=== PATIENT | female | born 1955 | race Caucasian/White ===

== ENCOUNTER 2019-11-29 15:58 | Emergency (ER) | payer OTHER ==
[~2019-11-29] VITALS: Ht 162.6 cm; Wt 50.6 kg
--- OUTSIDE RECORDS SUMMARY | 2019-11-29 16:05 | XMS REPORT | Continuity of Care Document ---
Author Organization Unknown Address Unknown Phone Unavailable Allergies There is no data. Medications There is no data. Problems There is no data. Procedures There is no data. Results Test Result Range A1C - 08/26/18 10:00 HEMOGLOBIN A1c 6.9 % of total Hgb <5.7 LIPID PANEL - 11/14/18 08:45 CHOLESTEROL, TOTAL 123 mg/dL <200 HDL CHOLESTEROL 61 mg/dL >50 TRIGLYCERIDES 87 mg/dL <150 LDL-CHOLESTEROL 45 mg/dL (calc) NRG CHOL/HDLC RATIO 2.0 (calc) <5.0 NON HDL CHOLESTEROL 62 mg/dL (calc) <130 CMP - 11/14/18 08:45 GLUCOSE 149 mg/dL 65-99 UREA NITROGEN (BUN) 10 mg/dL 7-25 CREATININE 0.47 mg/dL 0.50-0.99 eGFR NON-AFR. [place] 104 mL/min/1.73m2 > OR = 60 eGFR 121 mL/min/1.73m2 > OR = 60 BUN/CREATININE RATIO 21 (calc) 6-22 SODIUM 140 mmol/L 135-146 POTASSIUM 4.0 mmol/L 3.5-5.3 CHLORIDE 102 mmol/L 98-110 CARBON DIOXIDE 29 mmol/L 20-32 CALCIUM 9.4 mg/dL 8.6-10.4 PROTEIN, TOTAL 6.4 g/dL 6.1-8.1 ALBUMIN 4.2 g/dL 3.6-5.1 GLOBULIN 2.2 g/dL (calc) 1.9-3.7 ALBUMIN/GLOBULIN RATIO 1.9 (calc) 1.0-2. 5 BILIRUBIN, TOTAL 0.4 mg/dL 0.2-1.2 ALKALINE PHOSPHATASE 70 U/L 33-130 AST 10 U/L 10-35 ALT 7 U/L 6-29 CBC - 11/14/18 08:45 WHITE BLOOD CELL COUNT 5.2 Thousand/uL 3 .8-10.8 RED BLOOD CELL COUNT 4.52 Million/uL 3.8 0-5.10 HEMOGLOBIN 10.6 g/dL 11.7-15.5 HEMATOCRIT 34.3 % 35.0-45.0 MCV 75.9 fL 80.0-100.0 MCH 23.5 pg 27.0-33.0 MCHC 30.9 g/dL 32.0-36.0 RDW 14.8 % 11.0-15.0 PLATELET COUNT 196 Thousand/uL 140-400 MPV 11.5 fL 7.5-12.5 ABSOLUTE NEUTROPHILS 3541 cells/uL 1500- 7800 ABSOLUTE LYMPHOCYTES 1165 cells/uL 850-3 900 ABSOLUTE MONOCYTES 322 cells/uL 200-950 ABSOLUTE EOSINOPHILS 130 cells/uL 15-500 ABSOLUTE BASOPHILS 42 cells/uL 0-200 NEUTROPHILS 68.1 % NRG LYMPHOCYTES 22.4 % NRG MONOCYTES 6.2 % NRG EOSINOPHILS 2.5 % NRG BASOPHILS 0.8 % NRG A1C - 11/14/18 08:45 HEMOGLOBIN A1c 7.0 % of total Hgb <5.7 LIPID PANEL - 03/09/19 08:29 CHOLESTEROL, TOTAL 166 mg/dL <200 HDL CHOLESTEROL 65 mg/dL >50 TRIGLYCERIDES 75 mg/dL <150 LDL-CHOLESTEROL 85 mg/dL (calc) NRG CHOL/HDLC RATIO 2.6 (calc) <5.0 NON HDL CHOLESTEROL 101 mg/dL (calc) <13 0 CMP - 03/09/19 08:29 GLUCOSE 160 mg/dL 65-99 UREA NITROGEN (BUN) 10 mg/dL 7-25 CREATININE 0.58 mg/dL 0.50-0.99 eGFR NON-AFR. [place] 97 mL/min/1.73m2 > OR = 60 eGFR 112 mL/min/1.73m2 > OR = 60 BUN/CREATININE RATIO NOT APPLICABLE (calc) 6-22 SODIUM 140 mmol/L 135-146 POTASSIUM 3.9 mmol/L 3.5-5.3 CHLORIDE 104 mmol/L 98-110 CARBON DIOXIDE 30 mmol/L 20-32 CALCIUM 9.1 mg/dL 8.6-10.4 PROTEIN, TOTAL 6.0 g/dL 6.1-8.1 ALBUMIN 4.0 g/dL 3.6-5.1 GLOBULIN 2.0 g/dL (calc) 1.9-3.7 ALBUMIN/GLOBULIN RATIO 2.0 (calc) 1.0-2. 5 BILIRUBIN, TOTAL 0.3 mg/dL 0.2-1.2 ALKALINE PHOSPHATASE 65 U/L 33-130 AST 10 U/L 10-35 ALT 5 U/L 6-29 CBC - 03/09/19 08:29 WHITE BLOOD CELL COUNT 5.0 Thousand/uL 3 .8-10.8 RED BLOOD CELL COUNT 4.89 Million/uL 3.8 0-5.10 HEMOGLOBIN 12.1 g/dL 11.7-15.5 HEMATOCRIT 38.4 % 35.0-45.0 MCV 78.5 fL 80.0-100.0 MCH 24.7 pg 27.0-33.0 MCHC 31.5 g/dL 32.0-36.0 RDW 15.8 % 11.0-15.0 PLATELET COUNT 193 Thousand/uL 140-400 MPV 11.1 fL 7.5-12.5 ABSOLUTE NEUTROPHILS 3215 cells/uL 1500- 7800 ABSOLUTE LYMPHOCYTES 1130 cells/uL 850-3 900 ABSOLUTE MONOCYTES 375 cells/uL 200-950 ABSOLUTE EOSINOPHILS 240 cells/uL 15-500 ABSOLUTE BASOPHILS 40 cells/uL 0-200 NEUTROPHILS 64.3 % NRG LYMPHOCYTES 22.6 % NRG MONOCYTES 7.5 % NRG EOSINOPHILS 4.8 % NRG BASOPHILS 0.8 % NRG A1C - 03/09/19 08:29 HEMOGLOBIN A1c 7.1 % of total Hgb <5.7 A1C - 06/05/19 09:47 HEMOGLOBIN A1c 7.0 % of total Hgb <5.7 MICROALBUMIN/CREATININE RATIO, URINE - 0 10/06/19 08:25 CREATININE, RANDOM URINE 49 mg/dL 20-27 5 MICROALBUMIN 0.6 mg/dL See Note: MICROALBUMIN/CREATININE RATIO, RANDOM URINE 12 mcg /mg creat <30 Encounters ACCT No. Visit Date/Time Discharge Status Pt. Type Provider Facility Loc./Unit Complaint [id number] 10/22/2019 08:45:00 10/22/2019 23:59: 59 [facility] [id number] 10/06/2019 08:15:00 Document Registration [id number] 06/05/2019 08:45:00 Document Registration [id number] 03/09/2019 08:45:00 Document Registration [id number] 11/14/2018 08:30:00 Document Registration [id number] 08/26/2018 11:00:00 Document Registration
[2019-11-29] MEDS ORDERED: KETOROLAC 30 MG/ML VIAL IVP STA (16:11)
[2019-11-29] MEDS ORDERED: ONDANSETRON 4 MG/2 ML (SDV) Z0FRAN IVP STA (16:11)
[2019-11-29] MEDS ORDERED: PANTOPRAZOLE 40 MG (PROTONIX) VIAL IV STA (16:11)
[2019-11-29] MEDS ORDERED: NS IV 1000 ML 1,000 ML IV STA (16:11)
--- NOTE | 2019-11-29 16:19 | ED GI ---
General Chief Complaint: Abdominal/GI Problems Stated Complaint: STOMACH PAIN;VOMITING Nursing Triage Note: Patient reports intermittent abdominal pain for 1-2 weeks, states she saw Dr. Desir and started taking Gas-Ex, which helped for a few days. Patient states today her pain worsened and she began vomiting; states she vomited 6-7 times at home, no oral intake today. Sepsis Screen: No Definite Risk Source of Information: Patient History of Present Illness Date Seen by Provider: November 29, 2019 Time Seen by Provider: 16:01 Initial Comments 64-year-old female presenting with complaints of increased abdominal pain with nausea and vomiting. She states that she has seen Dr. Desir a few weeks ago for the same problem and was told to take medication [id number]. This was not helping and this morning she started throwing up. She states that she is not taking anything by mouth today because of the abdominal pain and vomiting. She denies any allergies to medicines. She states that she has history diabetes as well as high blood pressure and high cholesterol. She has not taken anything today to try and help with pain. She feels like she is bloated with extra gas and it is worse whenever she tries to eat or drink. Gas-X had helped some initially but is not helping now. Allergies and Home Medications Allergies Coded Allergies: No Known Drug Allergies (Unverified , 11/29/19) Home Medications Metoclopramide HCl 5 Mg Tablet, 5 MG PO Q6H PRN for NAUSEA/VOMITING Prescribed by: NELSON BERMEO on 11/29/19 1816 Patient Home Medication List Home Medication List Reviewed: Yes Review of Systems Review of Systems Constitutional: No chills, No dizziness, No fever EENTM: No Symptoms Reported Respiratory: No Symptoms Reported Cardiovascular: No Symptoms Reported Gastrointestinal: See HPI Genitourinary: No Symptoms Reported Musculoskeletal: no symptoms reported Skin: no symptoms reported Psychiatric/Neurological: Anxiety Past Ztbipqi-Snworo-Elhdhq Hx Past Med/Social Hx: Reviewed Nursing Past Med/Soc Hx Patient Social History Recent Foreign Travel: No Contact w/Someone Who Travel: No Recent Infectious Disease Expo: No Past Medical History Surgeries: Yes Hysterectomy (vaginal hysterectomy), Tubal Ligation Respiratory: No Cardiac: Yes High Cholesterol, Hypertension Neurological: No Reproductive Disorders: No Genitourinary: No Gastrointestinal: No Musculoskeletal: No Endocrine: Yes Diabetes, Non-Insulin dep HEENT: No Cancer: No Psychosocial: No Integumentary: No Physical Exam Vital Signs Vital Signs - First Documented 11/29/19 16:08 Temp 36.8 Pulse 119 Resp 18 B/P (MAP) 158/87 (110) Pulse Ox 97 O2 Delivery Room Air Capillary Refill : Less Than 3 Seconds Height/Weight/BMI Height: '" Weight: lbs. oz. kg; 19.00 BMI Method: General Appearance: WD/WN, mild distress HEENT: PERRL/EOMI; No pharynx normal (slightly dry mucous membranes) Neck: non-tender, full range of motion, supple, normal inspection Respiratory: chest non-tender, lungs clear, normal breath sounds, no respiratory distress, no accessory muscle use Cardiovascular: normal peripheral pulses, no murmur, tachycardia Gastrointestinal: soft, no pulsatile mass, abnormal bowel sounds (hypoactive); No guarding, No rebound; tenderness (diffuse) Rectal: deferred Extremities: normal range of motion, non-tender, normal inspection, normal capillary refill 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, no motor/sensory deficits, alert, oriented x 3, other (anxious) Skin: normal color, warm/dry Progress/Results/Core Measures Results/Orders Lab Results Laboratory Tests Test 11/29/19 16:11 11/29/19 17:25 Range/Units White Blood Count 10.9 4.3-11.0 10^3/uL Red Blood Count 5.37 4.35-5.85 10^6/uL Hemoglobin 13.6 11.5-16.0 G/DL Hematocrit 42 35-52 % Mean Corpuscular Volume 78 L 80-99 FL Mean Corpuscular Hemoglobin 25 25-34 PG Mean Corpuscular Hemoglobin Concent 33 32-36 G/DL Red Cell Distribution Width 15.2 H 10.0-14.5 % Platelet Count 293 130-400 10^3/uL Mean Platelet Volume 11.2 H 7.4-10.4 FL Neutrophils (%) (Auto) 84 H 42-75 % Lymphocytes (%) (Auto) 10 L 12-44 % Monocytes (%) (Auto) 6 0-12 % Eosinophils (%) (Auto) 0 0-10 % Basophils (%) (Auto) 0 0-10 % Neutrophils # (Auto) 9.2 H 1.8-7.8 X 10^3 Lymphocytes # (Auto) 1.0 1.0-4.0 X 10^3 Monocytes # (Auto) 0.6 0.0-1.0 X 10^3 Eosinophils # (Auto) 0.0 0.0-0.3 10^3/uL Basophils # (Auto) 0.0 0.0-0.1 10^3/uL Sodium Level 141 135-145 MMOL/L Potassium Level 3.9 3.6-5.0 MMOL/L Chloride Level 99 98-107 MMOL/L Carbon Dioxide Level 26 21-32 MMOL/L Anion Gap 16 H 5-14 MMOL/L Blood Urea Nitrogen 11 7-18 MG/DL Creatinine 0.39 L 0.60-1.30 MG/DL Estimat Glomerular Filtration Rate > 60 BUN/Creatinine Ratio 28 Glucose Level 164 H 70-105 MG/DL Calcium Level 9.4 8.5-10.1 MG/DL Corrected Calcium 9.2 8.5-10.1 MG/DL Total Bilirubin 0.6 0.1-1.0 MG/DL Aspartate Amino Transf (AST/SGOT) 19 5-34 U/L Alanine Aminotransferase (ALT/SGPT) 7 0-55 U/L Alkaline Phosphatase 94 40-136 U/L Total Protein 6.8 6.4-8.2 GM/DL Albumin 4.3 3.2-4.5 GM/DL Lipase 9 8-78 U/L Urine Color YELLOW Urine Clarity CLEAR Urine pH 6.5 5-9 Urine Specific [place] <1.005 1.016-1.022 Urine Protein NEGATIVE NEGATIVE Urine Glucose (UA) NEGATIVE NEGATIVE Urine Ketones 1+ H NEGATIVE Urine Nitrite NEGATIVE NEGATIVE Urine Bilirubin NEGATIVE NEGATIVE Urine Urobilinogen 1.0 < = 1.0 MG/DL Urine Leukocyte Esterase NEGATIVE NEGATIVE Urine RBC (Auto) NEGATIVE NEGATIVE Urine RBC NONE /HPF Urine WBC NONE /HPF Urine Squamous Epithelial Cells 0-2 /HPF Urine Crystals NONE /LPF Urine Bacteria NONE /HPF Urine Casts NONE /LPF Urine Mucus NEGATIVE /LPF Urine Culture Indicated NO My Orders Orders - NELSON BERMEO MD Comprehensive Metabolic Panel (11/29/19 16:06) Lipase (11/29/19 16:06) Ua Culture If Indicated (11/29/19 16:06) Ed Iv/Invasive Line Start (11/29/19 16:06) Cbc With Automated Diff (11/29/19 16:06) Ns Iv 1000 Ml (Sodium Chloride 0.9%) (11/29/19 16:11) Ondansetron Injection (Zofran Injectio (11/29/19 16:11) Pantoprazole Injection (Protonix Injecti (11/29/19 16:11) Ketorolac Injection (Toradol Injection) (11/29/19 16:11) Ct Abdomen/Pelvis W (11/29/19 16:13) Iohexol Injection (Omnipaque 350 Mg/Ml 1 (11/29/19 16:45) Received Contrast (Hold Metformin- Contr (11/29/19 16:45) Sodium Chloride Flush (Catheter Flush Sy (11/29/19 16:45) Ns (Ivpb) (Sodium Chloride 0.9% Ivpb Bag (11/29/19 16:45) Medications Given in ED Current Medications Medications Dose Ordered Sig/Cynthia Route Start Time Stop Time Status Last Admin Dose Admin Iohexol 100 ml ONCE ONCE IV 11/29/19 16:45 11/29/19 16:46 DC 11/29/19 16:59 100 ML Sodium Chloride 10 ml NEEDED PRN IV 11/29/19 16:45 11/29/19 17:00 10 ML Sodium Chloride 100 ml ONCE ONCE IV 11/29/19 16:45 11/29/19 16:46 DC 11/29/19 17:00 100 ML Vital Signs/I&O 11/29/19 16:08 Temp 36.8 Pulse 119 Resp 18 B/P (MAP) 158/87 (110) Pulse Ox 97 O2 Delivery Room Air Blood Pressure Mean: 110 Progress Progress Note #1: Progress Note Obtain basic labs and give IV fluids for hydration, Toradol for pain, Zofran for nausea. Will try dose of Protonix in case her some gastritis component. Ordered a CT scan of the abdomen and pelvis provided her creatinine is stable in the GFR is sinus she can get contrast will perform the scan with contrast to evaluate for colitis versus mass versus obstruction versus appendicitis versus cholecystitis. Progress Note #2: Time: 16:41 Progress Note CBC shows normal WBC 10.9 but she does have a left shift with elevated Neutrophils. MCV slightly low at 78 so may be iron deficient. Chemistry shows elevated glucose to go with her DM but no acute significant abnormality otherwise. Awaiting UA and CT scan imaging of abdomen/pelvis. Progress Note #3: Time: 17:[address] scan shows dilated small bowel and colon with fluid filled bowel up to the sigmoid. No discrete mass seen. Radiology recommends colonoscopy to evaluate this further. Pt finally able to provide a urine specimen. She reports feeling better and wanting to go home. Will see how she tolerates po here in ED and wait on UA results. If pain/vomiting worsen or return with taking po will need to check with [facility] or Surgery about admit for IVF for hydration and bowel rest and consider colonoscopy or further evaluation of her colon to look for a mass or area of obstruction. Progress Note #4: Time: 17:56 Progress Note Patient is tolerating oral intake and states that her abdominal pain and nausea with vomiting has not returned. Her urinalysis did not show infection but she did have some ketones consistent with her not eating or drinking well. She still wants to try working this up as an outpatient and I informed her she will need a colonoscopy to evaluate her colon and apparent obstruction. In the meantime, follow a liquid and soft diet. Counseled on follow-up and return precautions. Advised if she had worsening symptoms and had contact that we would try to admit her down to [place] and she could also just go directly to the hospital in [place]. Diagnostic Imaging Diagonstic Imaging: CT Plain Films/CT/US/NM/MRI: abdomen, pelvis Comments NAME: RICHELLE XIONG [facility] REC#: [id number] PT STATUS: REG ER : 1955 PHYSICIAN: NELSON BERMEO MD ADMIT DATE: 11/29/19/ER FS Draft Date of Exam:11/29/19 CT ABDOMEN/PELVIS W PROCEDURE: CT abdomen and pelvis with contrast. TECHNIQUE: Multiple contiguous axial images were obtained through the abdomen and pelvis after administration of intravenous contrast. Auto Exposure Controls were utilized during the CT exam to meet ALARA standards for radiation dose reduction. INDICATION: Abdominal pain x 2 weeks with nausea and vomiting. FINDINGS: Lung bases are clear. The liver appears normal. Gallbladder is present. Pancreas is unremarkable. Spleen is upper limits of normal. Adrenals appear normal. Kidneys appear normal. The small bowel is dilated. The colon is filled with fluid up to the junction of the descending and sigmoid colon. There is no discrete mass seen. Urinary bladder is decompressed. The uterus is surgically absent. IMPRESSION: Dilated fluid-filled small bowel and colon up to the sigmoid colon. There is no mass or wall thickening evident. There is no evidence of diverticulitis. Further evaluation with colonoscopy is recommended. Dictated on workstation # [id number] Dict: 11/29/19 1711 Trans: 11/29/19 171 [facility] [id number] Interpreted by: LEAH LUNA MD Electronically signed by: Departure Impression Primary Impression: Dilatation of colon Additional Impressions: Diffuse abdominal pain Bilious vomiting with nausea Disposition: HOME, SELF-CARE Condition: Stable Departure-Patient Inst. Decision time for Depature: 18:11 Referrals: FRANKLYN DESIR MD Patient Instructions: Full Liquid Diet, Nausea and Vomiting, Adult (DC) Add. Discharge Instructions: Follow up with Dr. Desir and call the clinic in the morning to let them know that you need to have a colonoscopy based on your testing and imaging done today. In the meantime follow a liquid or soft diet to make it easier on your gut. If you have worsening pain or uncontrolled vomiting again then return or seek medical care at [facility] for admit All discharge instructions reviewed with patient and/or family. Voiced understanding. Scripts Metoclopramide HCl (Metoclopramide HCl) 5 Mg Tablet 5 MG PO Q6H PRN for NAUSEA/VOMITING for 3 Days, #12 TAB 0 Refills Prov: NELSON BERMEO MD 11/29/19 NELSON BERMEO MD November 29, 2019 16:19
[2019-11-29 16:22] LABS: BASOPHILS % (AUTO) 0 % (0-10); EOSINOPHILS % (AUTO) 0 % (0-10); HEMATOCRIT 42 % (35-52); HEMOGLOBIN 13.6 G/DL (11.5-16.0); LYMPHOCYTES % (AUTO) 10 % (12-44); MEAN CORPUSCULAR HEMOGLOBIN 25 PG (25-34); MEAN CORPUSCULAR HGB CONC 33 G/DL (32-36); MEAN CORPUSCULAR VOLUME 78 FL (80-99); MEAN PLATELET VOLUME 11.2 FL (7.4-10.4); MONOCYTES # (AUTO) 0.6 X 10^3 (0.0-1.0); MONOCYTES % (AUTO) 6 % (0-12); NEUTROPHILS # (AUTO) 9.2 X 10^3 (1.8-7.8); NEUTROPHILS % (AUTO) 84 % (42-75); PLATELET COUNT 293 10^3/uL (130-400); RED CELL DISTRIBUTION WIDTH 15.2 % (10.0-14.5); WHITE BLOOD COUNT 10.9 10^3/uL (4.3-11.0)
[2019-11-29 16:34] LABS: ALANINE AMINOTRANSFERASE 7 U/L (0-55); ALBUMIN 4.3 GM/DL (3.2-4.5); ALKALINE PHOSPHATASE 94 U/L (40-136); BILIRUBIN,TOTAL 0.6 MG/DL (0.1-1.0); BUN/CREATININE RATIO 28; CALCIUM 9.4 MG/DL (8.5-10.1); CARBON DIOXIDE 26 MMOL/L (21-32); CHLORIDE 99 MMOL/L (98-107); CREATININE SERUM 0.39 MG/DL (0.60-1.30); GFR ESTIMATED > 60; GLUCOSE 164 MG/DL (70-105); LIPASE 9 U/L (8-78); POTASSIUM 3.9 MMOL/L (3.6-5.0); SODIUM 141 MMOL/L (135-145); TOTAL PROTEIN 6.8 GM/DL (6.4-8.2)
[2019-11-29] MEDS ORDERED: HOLD METFORMIN - RECEIVED CONTRAST 20 ML VIAL IV SCH (16:45)
[2019-11-29] MEDS ORDERED: CATHETER FLUSH 10 ML SYR IV PRN (16:45)
[2019-11-29] MEDS ORDERED: NS 100 ML (IVPB) BAG IV ONE (16:45)
[2019-11-29] MEDS ORDERED: IOHEXOL 350 MG/ML 100 ML (OMNIPAQUE 350) VIAL IV ONE (16:45)
--- NOTE | 2019-11-29 17:19 | Diagnostic Imaging Report ---
PROCEDURE: CT abdomen and pelvis with contrast. TECHNIQUE: Multiple contiguous axial images were obtained through the abdomen and pelvis after administration of intravenous contrast. Auto Exposure Controls were utilized during the CT exam to meet ALARA standards for radiation dose reduction. INDICATION: Abdominal pain x 2 weeks with nausea and vomiting. FINDINGS: Lung bases are clear. The liver appears normal. Gallbladder is present. Pancreas is unremarkable. Spleen is upper limits of normal. Adrenals appear normal. Kidneys appear normal. The small bowel is dilated. The colon is filled with fluid up to the junction of the descending and sigmoid colon. There is no discrete mass seen. Urinary bladder is decompressed. The uterus is surgically absent. IMPRESSION: Dilated fluid-filled small bowel and colon up to the sigmoid colon. There is no mass or wall thickening evident. There is no evidence of diverticulitis. Further evaluation with colonoscopy is recommended. Dictated by: Dictated on workstation # [id number]
[2019-11-29 17:44] LABS: CLARITY,URINE CLEAR; COLOR,URINE YELLOW; PH,URINE 6.5 (5-9); PROTEIN,URINE NEGATIVE (NEGATIVE)
[2019-11-29 17:45] LABS: BILIRUBIN,URINE NEGATIVE (NEGATIVE); GLUCOSE, URINE (UA) NEGATIVE (NEGATIVE); KETONES,URINE 1+ (NEGATIVE); LEUKOCYTE ESTERASE ,URINE NEGATIVE (NEGATIVE); NITRITE,URINE NEGATIVE (NEGATIVE); SQUAMOUS EPITHELIAL CELL,UR 0-2 /HPF
[2019-11-29] MEDS ORDERED: METO5TAB2 PO (18:16)
[2019-11-29 18:23] VITALS: BP 143/68
== END 2019-11-29 18:23 | disposition home or self-care (01) ==
LOC: ER FS 16:00
DX: K59.39 Other megacolon (principal); R11.14 Bilious vomiting; R11.0 Nausea; E11.9 Type 2 diabetes mellitus without complications
CPT/HCPCS: 36415; 74177; 80053; 81000; 83690; 85025; 96361; 96374; 96375

== ENCOUNTER → 2019-12-21 | Outpatient (CLI) | payer OTHER ==
[~2019-12-21] VITALS: Ht 167 cm; Wt 51.3 kg
[~2019-12-21] MED LIST: LISI2.5T PO; METF-399 PO; METO5TAB2 PO
== END | disposition home or self-care (01) ==
LOC: PREOP 05:52
PROVIDERS: ATTEND Surgery
DX: Z01.818 Encounter for other preprocedural examination (principal)

== ENCOUNTER 2019-12-28 09:13 | Day surgery (SDC) | payer OTHER ==
[~2019-12-28] VITALS: Ht 152 cm; Wt 51.3 kg
[2019-12-28] MEDS ORDERED: LACTATED RINGERS 1,000 ML IV ONE (09:18)
[2019-12-28] MEDS ORDERED: PROPOFOL INJECTION 0 ML IV ONE (09:33)
[2019-12-28] MEDS ORDERED: LACTATED RINGERS 1,000 ML IV STA (09:45)
--- NOTE | 2019-12-28 10:09 | Progress Note-Pre Operative ---
Pre-Operative Progress Note H&P Reviewed The H&P was reviewed, patient examined and no changes noted. Time Seen by Provider: 10:07 Date H&P Reviewed: Dec 28, 2019 Time H&P Reviewed: 10:08 Pre-Operative Diagnosis: Screening Colonoscopy ALEJANDRO VELAZQUEZ DO Dec 28, 2019 10:08
--- OUTSIDE RECORDS SUMMARY | 2019-12-28 10:19 | XMS REPORT | Continuity of Care Document ---
Author Organization Unknown Address Unknown Phone Unavailable Allergies Active Description Code Type Severity Reaction Onset Reported/Identified Relationship to Patient Clinical Status Yes No Known Drug Allergies [id number] Drug Allergy Unknown N/A 12/21/2019 Medications There is no data. Problems Date Dx Coded Attending Type Code Diagnosis Diagnosed By 11/29/2019 ELVIE ROCKWELL, NELSON Gao Ot E11.9 TYPE 2 DIABETES MELLITUS WITHOUT COMPLIC 11/29/2019 ELVIE ROCKWELL, NELSON Gao Ot K59.3 9 OTHER [place]GAC[place] 11/29/2019 ELVIE ROCKWELL, NELSON E Ot R10.8 4 GENERALIZED ABDOMINAL PAIN 11/29/2019 NELSON BERMEO MD E Ot R11.0 NAUSEA 11/29/2019 ELVIE ROCKWELL, NELSON E Ot R11.1 4 BILIOUS VOMITING 12/02/2019 ELVIE ROCKWELL, NELSON E Ot E11.9 TYPE 2 DIABETES MELLITUS WITHOUT COMPLIC 12/02/2019 ELVIE ROCKWELL, NELSON E Ot K59.3 9 OTHER [place] 12/02/2019 ELVIE ROCKWELL, NELSON E Ot R10.8 4 GENERALIZED ABDOMINAL PAIN 12/02/2019 NELSON BERMEO MD E Ot R11.0 NAUSEA 12/02/2019 NELSON BERMEO MD Ot R11.1 4 BILIOUS VOMITING 12/22/2019 ALEJANDRO VELAZQUEZ DO Ot Z01.8 18 ENCOUNTER FOR OTHER PREPROCEDURAL EXAMIN 12/27/2019 ALEJANDRO VELAZQUEZ DO Ot Z01.8 18 ENCOUNTER FOR OTHER PREPROCEDURAL EXAMIN Procedures There is no data. Results Test [...] 7-25 CREATININE 0.47 mg/dL 0.50-0.99 eGFR NON-AFR. [place] 104 mL/min/1.73m2 > OR = 60 eGFR [...] 7-25 CREATININE 0.58 mg/dL 0.50-0.99 eGFR NON-AFR. [place] 97 mL/min/1.73m2 > OR = 60 eGFR [...] RANDOM URINE 12 mcg /mg creat <30 Complete blood count (CBC) with automate d white blood cell (WBC) differential - 11/29/19 16:11 Blood leukocytes automated count (number/volume) 10.9 10*3/uL 4.3-11.0 Blood erythrocytes automated count (number/volume) 5.37 10*6/uL 4.35-5.85 Venous blood hemoglobin measurement (mass/volume) 13.6 g/dL 11.5-16.0 Blood hematocrit (volume fraction) 42 % 35-52 Automated erythrocyte mean corpuscular volume 78 [ foz_us] 80-99 Automated erythrocyte mean corpuscular h emoglobin (mass per erythrocyte) 25 pg 25-34 Automated erythrocyte mean corpuscular h emoglobin concentration measurement (mass/volume) 33 g/dL 32-36 Automated erythrocyte distribution width ratio 15. 2 % 10.0- 14.5 Automated blood platelet count (count/volume) 293 10*3/uL 130-400 Automated blood platelet mean volume measurement 11.2 [foz_us] 7.4-10.4 Automated blood neutrophils/100 leukocytes 84 % 42-75 Automated blood lymphocytes/100 leukocytes 10 % 12-44 Blood monocytes/100 leukocytes 6 % 0-12 Automated blood eosinophils/100 leukocytes 0 % 0-10 Automated blood basophils/100 leukocytes 0 % 0-10 Blood neutrophils automated count (number/volume) 9.2 10*3 1.8-7.8 Blood lymphocytes automated count (number/volume) 1.0 10*3 1.0-4.0 Blood monocytes automated count (number/volume) 0. 6 10*3 0.0-1.0 Automated eosinophil count 0.0 10*3/uL 0 .0-0.3 Automated blood basophil count (count/volume) 0.0 10*3/uL 0.0-0.1 Comprehensive metabolic panel - 11/29/19 16:11 Serum or plasma sodium measurement (moles/volume) 141 mmol/L 135-145 Serum or plasma potassium measurement (moles/volume) 3.9 mmol/L 3.6-5.0 Serum or plasma chloride measurement (moles/volume) 99 mmol/L 98-107 Carbon dioxide 26 mmol/L 21-32 Serum or plasma anion gap determination (moles/volume) 16 mmol/L 5-14 Serum or plasma urea nitrogen measurement (mass/volume ) 11 mg/dL 7-18 Serum or plasma creatinine measurement (mass/volume) 0.39 mg/dL 0.60-1.30 Serum or plasma urea nitrogen/creatinine mass ratio 28 NRG Serum or plasma creatinine measurement w ith calculation of estimated glomerular filtration rate > NRG Serum or plasma glucose measurement (mass/volume) 164 mg/dL 70-105 Serum or plasma calcium measurement (mass/volume) 9.4 mg/dL 8.5-10.1 Serum or plasma total bilirubin measurement (mass/volu me) 0.6 mg/dL 0.1-1.0 Serum or plasma alkaline phosphatase venkat surement (enzymatic activity/volume) 94 U/L 40-136 Serum or plasma aspartate aminotransfera se measurement (enzymatic activity/volume) 19 U/L 5-34 Serum or plasma alanine aminotransferase measurement (enzymatic activity/volume) 7 U/L 0-55 Serum or plasma protein measurement (mass/volume) 6.8 g/dL 6.4-8.2 Serum or plasma albumin measurement (mass/volume) 4.3 g/dL 3.2-4.5 CALCIUM CORRECTED 9.2 mg/dL 8.5-10.1 Lipase - 11/29/19 16:11 Lipase 9 U/L 8-78 Complete urinalysis with reflex to cultu re - 11/29/19 17:25 Urine color determination YELLOW NRG Urine clarity determination CLEAR NR G Urine pH measurement by test strip 6.5 5-9 Specific gravity of urine by test strip < 1.016-1.022 Urine protein assay by test strip, semi-quantitative NEGATIVE NEGATIVE Urine glucose detection by automated test strip NE GATIVE NEGATIVE Erythrocytes detection in urine sediment by light micr oscopy NEGATIVE NEGATIVE Urine ketones detection by automated test strip 1+ NEGATIVE Urine nitrite detection by test strip NEGATIVE NEGATIVE Urine total bilirubin detection by test strip NEGA TIVE NEGATIVE Urine urobilinogen measurement by automated test strip (mass/volume) 1.0 mg/dL < = 1.0 Urine leukocyte esterase detection by dipstick NEG ATIVE NEGATIVE Automated urine sediment erythrocyte cou nt by microscopy (number/high power field) NONE NRG Automated urine sediment leukocyte count by microscopy (number/high power field) NONE NRG Bacteria detection in urine sediment by light microsco py NONE NRG Squamous epithelial cells detection in u rine sediment by light microscopy 0-2 NRG Crystals detection in urine sediment by light microsco py NONE NRG Casts detection in urine sediment by light microscopy NONE NRG Mucus detection in urine sediment by light microscopy NEGATIVE NRG Complete urinalysis with reflex to culture NO NRG Encounters ACCT No. Visit Date/Time Discharge Status Pt. Type Provider Facility Loc./Unit Complaint [id number] 12/22/2019 11:50:00 12/22/2019 23:59: 59 [facility] Outpatient [facility] [id number] 10/06/2019 08:15:00 Document Registration [id number] 06/05/2019 08:45:00 Document Registration [id number] 03/09/2019 08:45:00 Document Registration [id number] 11/14/2018 08:30:00 Document Registration [id number] 08/26/2018 11:00:00 Document Registration [id number] 12/21/2019 05:52:00 16:00:00 DIS Outpatient ALEJANDRO VELAZQUEZ DO [facility] PREOP COLONOSCOPY [id number] 11/29/2019 16:00:00 18:23:00 DIS Emergency ELVIE ROCKWELL, NELSON Gao [facility] ER FS STOMACH PAIN;VOMITING [id number] 12/28/2019 11:50:00 P EN Preadmit ALEJANDRO VELAZQUEZ DO [facility] ENDO SCREENING
[2019-12-28 10:30] VITALS: BP 169/88
[2019-12-28] MEDS ORDERED: PROPOFOL INJECTION 50 ML IV ONE (10:41)
[2019-12-28] MEDS ORDERED: FAMOTIDINE 20MG/2ML IV (PEPCID) ONE (10:44)
[2019-12-28] MEDS ORDERED: FAMOTIDINE 20MG/2ML IV (PEPCID) IVP ONE (10:45)
[2019-12-28 10:55] VITALS: BP 114/73
--- NOTE | 2019-12-28 10:57 | Progress Note-Post Operative ---
Post-Operative Progess Note Surgeon (s)/Necktie Centralizing Machine Operator (s) Surgeon ALEJANDRO VELAZQUEZ DO Necktie Centralizing Machine Operator: none Pre-Operative Diagnosis Screening Colonoscopy Post-Operative Diagnosis Colon Mass Colon polyps anal stricture Procedure & Operative Findings Date of Procedure 12/28/19 Procedure Performed/Findings colon with snare colon with tattoo Anesthesia Type IV sedation by ORCHESTRA DIRECTOR Estimated Blood Loss Estimated blood loss (mL): scant Specimens/Packing Specimens Removed colon polyps piece of colon mass ALEJANDRO VELAZQUEZ DO Dec 28, 2019 10:57
--- NOTE | 2019-12-28 10:59 | Endoscopy Discharge Instruct ---
Endo Procedure/Findings Findings 1.: Other Findings (Colon mass) 2.: Polyp 3.: Other Findings (??anal stricture) Discharge Instructions - Activity: You might feel a little sleepy until tomorrow. This is due to the medicine you received to relax you. Until tomorrow, you should: NOT drive a car, operate machinery or power tools. NOT drink any alcoholic beverages. NOT make any important decisions or sign importortant papers. Do not return to work until tomorrow, unless otherwise instructed. Resume previous activities tomorrow. Diet: Start by taking liquids. If you tolerate liquids, advance to solid food. 1.: Colonoscopy in 1 year Notify Physician - If you experience excessive bleeding, unusual abdominal pain, fever, or chest pain, contact your doctor immediately. ALEJANDRO VELAZQUEZ DO Dec 28, 2019 10:59
[2019-12-28 11:00] VITALS: BP 138/74
[2019-12-28 11:05] VITALS: BP_SYST 150; BP_SYST 154; BP_DIAS 75; BP_DIAS 76
[2019-12-28 11:30] VITALS: BP 160/86
[2019-12-28 11:31] VITALS: BP 160/86
--- NOTE | 2019-12-28 14:22 | Anesthesia-General Post-Op ---
MAC Patient Condition Mental Status/LOC: Same as Preop Cardiovascular: Satisfactory Nausea/Vomiting: Absent Respiratory: Satisfactory Pain: Controlled Complications: Absent Post Op Complications Complications None Follow Up Care/Instructions Patient Instructions None needed. Anesthesiology Discharge Order Discharge Order Patient is doing well, no complaints, stable vital signs, no apparent adverse anesthesia problems. No complications reported per nursing. JERALD SOLORZANO CRNA Dec 28, 2019 14:22
--- NOTE | 2019-12-28 16:49 | OPERATIVE REPORT ---
DATE OF SERVICE: PREOPERATIVE DIAGNOSIS: Screening colonoscopy. POSTOPERATIVE DIAGNOSES: Colon polyps, colon mass and anal stricture. PROCEDURES: 1. Colonoscopy with snare polypectomy. 2. Colonoscopy with tattooing. SURGEON: Tanvir Cuevas DO TRAIN CONTROL TECHNICIAN: None. ANESTHESIA: IV sedation by HOME CARE MUSIC THERAPIST. SPECIMEN: Two transverse colon polyps and then a portion of a colon mass, unsure where this was. BLOOD LOSS: Scant. FLUIDS: Per anesthesia. POSTOPERATIVE CONDITION: Stable. INDICATION FOR PROCEDURE: The patient is a 64-year-old female who has never had a colonoscopy, needs one for screening. FINDINGS: The patient had a couple of small polyps in the transverse colon and then in this area a near obstructing colon lesion. PROCEDURE NOTE: After informed consent was obtained, the patient was brought to the endoscopy suite, placed in bed in left lateral decubitus position. She was administered IV sedation by the HOME CARE MUSIC THERAPIST who then monitored her vitals the entire time, heart rate, blood pressure, pulse ox and the scope was inserted, pushed all the way into about 90 cm; possibly into the transverse colon and saw couple of small polyps, did snare polypectomies of these and then continued to pass this and ran into a near obstructing colon lesion. Picture was taken. I then elected to do a snare biopsy to get a good piece of this and then used the Bessy ink to tattoo around this area, could not get past it, the area was too small, so then slowly withdrew the scope insufflating the circumferential reinoso at least the transverse colon to the splenic flexure, then down the descending colon into the sigmoid, finally into the rectum, did not see any other obvious pathology. Retroflexed the rectal vault, saw some what looked like an anal stricture, took a picture of this, did not really see any hemorrhoids and then pulled the scope out. The patient tolerated the procedure, recovered in endoscopy suite. Job ID: [id number] DocumentID: [id number] Dictated Date: 12/28/2019 11:54:47 Nutritional Health Coach Date: 12/28/2019 16:49:19 Dictated By: TANVIR CUEVAS DO [facility]
== END 2019-12-28 11:33 | disposition home or self-care (01) ==
LOC: ENDO 09:13
PROVIDERS: ATTEND Surgery
DX: Z12.11 Encounter for screening for malignant neoplasm of colon (principal); D12.3 Benign neoplasm of transverse colon; E11.9 Type 2 diabetes mellitus without complications; I10 Essential (primary) hypertension; Z90.710 Acquired absence of both cervix and uterus; Z79.84 Long term (current) use of oral hypoglycemic drugs
CPT/HCPCS: 82962; 88305; 88341; 88342

== ENCOUNTER 2020-02-08 12:31 | Outpatient (CLI) | payer OTHER ==
[~2020-02-08] VITALS: Ht 167 cm; Wt 49.9 kg
[2020-02-08 14:25] VITALS: BP 152/72
[2020-02-08 14:54] LABS: BASOPHILS % (AUTO) 0 % (0-10); EOSINOPHILS # (AUTO) 0.1 10^3/uL (0.0-0.3); EOSINOPHILS % (AUTO) 2 % (0-10); HEMATOCRIT 36 % (35-52); HEMOGLOBIN 11.8 G/DL (11.5-16.0); LYMPHOCYTES # (AUTO) 1.3 X 10^3 (1.0-4.0); LYMPHOCYTES % (AUTO) 25 % (12-44); MEAN CORPUSCULAR HEMOGLOBIN 26 PG (25-34); MEAN CORPUSCULAR HGB CONC 33 G/DL (32-36); MEAN CORPUSCULAR VOLUME 79 FL (80-99); MEAN PLATELET VOLUME 10.6 FL (7.4-10.4); MONOCYTES # (AUTO) 0.4 X 10^3 (0.0-1.0); MONOCYTES % (AUTO) 7 % (0-12); NEUTROPHILS # (AUTO) 3.4 X 10^3 (1.8-7.8); NEUTROPHILS % (AUTO) 66 % (42-75); PLATELET COUNT 213 10^3/uL (130-400); RED CELL DISTRIBUTION WIDTH 15.3 % (10.0-14.5); WHITE BLOOD COUNT 5.1 10^3/uL (4.3-11.0)
== END 2020-02-08 15:20 | disposition home or self-care (01) ==
LOC: PREOP 12:31
PROVIDERS: ATTEND Surgery
DX: Z01.818 Encounter for other preprocedural examination (principal); C18.9 Malignant neoplasm of colon, unspecified
CPT/HCPCS: 36415; 85025; 86850; 86900; 86901; 87081

== ENCOUNTER 2020-02-10 06:20 | Inpatient (IN) | payer OTHER, MEDICARE ==
[2020-02-10] VITALS (27 sets, daily range): BP systolic 64–193; BP diastolic 30–92
[~2020-02-10] VITALS: Ht 167 cm; Wt 63.0 kg
[2020-02-10] MEDS ORDERED: SUCCINYLCHOLINE INJ 100 MG/5 ML SYR INJ ONE (07:41)
[2020-02-10] MEDS ORDERED: ETOMIDATE IV SOLN 20 MG/10 ML VIAL IV ONE (07:41)
--- NOTE | 2020-02-10 09:56 | Progress Note-Pre Operative ---
Pre-Operative Progress Note H&P Reviewed The H&P was reviewed, patient examined and no changes noted. Time Seen by Provider: 09:53 Date H&P Reviewed: Feb 10, 2020 Time H&P Reviewed: 09:54 Pre-Operative Diagnosis: Descending/Sigmoid Colon CA ALEJANDRO VELAZQUEZ DO Feb 10, 2020 09:56
[2020-02-10] MEDS ORDERED: ceFAZolin 2 GM IV Premixed 50 ML IV ONE (10:00)
--- OUTSIDE RECORDS SUMMARY | 2020-02-10 10:06 | XMS REPORT | Continuity of Care Document ---
Author Organization Unknown Address Unknown Phone Unavailable Allergies Active Description Code Type Severity Reaction Onset Reported/Identified Relationship to Patient Clinical Status Yes No Known Drug Allergies [id number] Drug Allergy Unknown N/A 02/08/2020 Medications There is no data. Problems Date Dx Coded Attending Type Code Diagnosis Diagnosed By 11/29/2019 ELVIE ROCKWELL, NELSON Gao Ot E11.9 TYPE 2 DIABETES MELLITUS WITHOUT COMPLIC 11/29/2019 ELVIE ROCKWELL, NELSON Gao Ot K59.3 9 OTHER MEGACOLON 11/29/2019 ELVIE ROCKWELL, NELSON E Ot R10.8 4 GENERALIZED ABDOMINAL PAIN 11/29/2019 ELVIE ROCKWELL, NELSON E Ot R11.0 NAUSEA 11/29/2019 ELVIE ROCKWELL, NELSON E Ot R11.1 4 BILIOUS VOMITING 12/02/2019 ELVIE ROCKWELL, NELSON E Ot E11.9 TYPE 2 DIABETES MELLITUS WITHOUT COMPLIC 12/02/2019 ELVIE ROCKWELL, NELSON E Ot K59.3 9 OTHER MEGACOLON 12/02/2019 ELVIE ROCKWELL, NELSON E Ot R10.8 4 GENERALIZED ABDOMINAL PAIN 12/02/2019 ELVIE ROCKWELL, NELSON E Ot R11.0 NAUSEA 12/02/2019 ELVIE ROCKWELL, NELSON E Ot R11.1 4 BILIOUS VOMITING 12/21/2019 DELMAN DO, ALEJANDRO B Ot Z01.8 18 ENCOUNTER FOR OTHER PREPROCEDURAL EXAMIN 12/22/2019 DELMAN DO, ALEJANDRO B Ot Z01.8 18 ENCOUNTER FOR OTHER PREPROCEDURAL EXAMIN 12/27/2019 DELMAN DO, ALEJANDRO B Ot Z01.8 18 ENCOUNTER FOR OTHER PREPROCEDURAL EXAMIN 12/28/2019 DELMAN DO, ALEJANDRO B Ot K92.1 MELENA 01/05/2020 ATULMAN DO, ALEJANDRO B Ot D12.3 BENIGN NEOPLASM OF TRANSVERSE COLON 01/05/2020 DELMAN DO, ALEJANDRO B Ot E11.9 TYPE 2 DIABETES MELLITUS WITHOUT COMPLIC 01/05/2020 CAROLINE DO, ALEJANDRO B Ot I10 ESSENTIAL (PRIMARY) HYPERTENSION 01/05/2020 ALEJANDRO VELAZQUEZ DO Ot Z12.1 1 ENCOUNTER FOR SCREENING FOR MALIGNANT NE 01/05/2020 ALEJANDRO VELAZQUEZ DO Ot Z79.8 4 SEAFOOD HARVESTER (CURRENT) USE OF ORAL HYPOGLYC 01/05/2020 ALEJANDRO VELAZQUEZ DO Ot Z90.7 10 ACQUIRED ABSENCE OF BOTH CERVIX AND UTER Procedures There is no data. Results Test [...] 7-25 CREATININE 0.47 mg/dL 0.50-0.99 eGFR NON-AFR. MALTESE 104 mL/min/1.73m2 > OR = 60 eGFR [...] 7-25 CREATININE 0.58 mg/dL 0.50-0.99 eGFR NON-AFR. MALTESE 97 mL/min/1.73m2 > OR = 60 eGFR [...] urinalysis with reflex to culture NO NRG COVID-19 ([facility]) - 12/22/19 11:59 Capillary blood glucose measurement by g lucometer (mass/volume) - 12/28/19 09:32 Capillary blood glucose measurement by glucometer (mas s/volume) 175 mg/dL 70-110 Complete blood count (CBC) with automate d white blood cell (WBC) differential - 02/08/20 14:45 Blood leukocytes automated count (number/volume) 5.1 10*3/uL 4.3-11.0 Blood erythrocytes automated count (number/volume) 4.58 10*6/uL 4.35-5.85 Venous blood hemoglobin measurement (mass/volume) 11.8 g/dL 11.5-16.0 Blood hematocrit (volume fraction) 36 % 35-52 Automated erythrocyte mean corpuscular volume 79 [ foz_us] 80-99 Automated erythrocyte mean corpuscular h emoglobin (mass per erythrocyte) 26 pg 25-34 Automated erythrocyte mean corpuscular h emoglobin concentration measurement (mass/volume) 33 g/dL 32-36 Automated erythrocyte distribution width ratio 15. 3 % 10.0- 14.5 Automated blood platelet count (count/volume) 213 10*3/uL 130-400 Automated blood platelet mean volume measurement 10.6 [foz_us] 7.4-10.4 Automated blood neutrophils/100 leukocytes 66 % 42-75 Automated blood lymphocytes/100 leukocytes 25 % 12-44 Blood monocytes/100 leukocytes 7 % 0-12 Automated blood eosinophils/100 leukocytes 2 % 0-10 Automated blood basophils/100 leukocytes 0 % 0-10 Blood neutrophils automated count (number/volume) 3.4 10*3 1.8-7.8 Blood lymphocytes automated count (number/volume) 1.3 10*3 1.0-4.0 Blood monocytes automated count (number/volume) 0. 4 10*3 0.0-1.0 Automated eosinophil count 0.1 10*3/uL 0 .0-0.3 Automated blood basophil count (count/volume) 0.0 10*3/uL 0.0-0.1 Blood type T Indirect antibody screen pa adrian - 02/08/20 14:45 WRISTBAND NUMBER [id number] NRG ABO+Rh group AN NRG Blood group antibody screen NEGATIVE NR G Methicillin resistant Staphylococcus aur eus (MRSA) screening culture - 02/08/20 14:45 Methicillin resistant Staphylococcus aureus (MRSA) scr eening culture NEG NRG Encounters ACCT No. Visit Date/Time Discharge Status Pt. Type Provider Facility Loc./Unit Complaint [id number] 12/22/2019 11:50:00 12/22/2019 23:59: 59 [facility] Outpatient [facility] [id number] 12/22/2019 11:50:00 Document Registration [id number] 10/06/2019 08:15:00 Document Registration [id number] 06/05/2019 08:45:00 Document Registration [id number] 03/09/2019 08:45:00 Document Registration [id number] 11/14/2018 08:30:00 Document Registration [id number] 08/26/2018 11:00:00 Document Registration [id number] 02/08/2020 12:31:00 15:20:00 DIS Outpatient ALEJANDRO VELAZQUEZ DO [facility] PREOP LAP. COLON RESECTION [id number] 12/28/2019 09:13:00 11:33:00 DIS Outpatient ALEJANDRO VELAZQUEZ DO [facility] ENDO SCREENING [id number] 12/21/2019 05:52:00 16:00:00 DIS Outpatient ALEJANDRO VELAZQUEZ DO [facility] PREOP COLONOSCOPY [id number] 11/29/2019 16:00:00 18:23:00 DIS Emergency NELSON BERMEO MD [facility] ER FS STOMACH PAIN;VOMITING [id number] 02/10/2020 10:30:00 P EN Preadmit ALEJANDRO VELAZQUEZ DO [facility]
[2020-02-10] MEDS: LACTATED RINGERS 1,000 ML IV PRN ×4 (10:07→22:12)
[2020-02-10] MEDS ORDERED: BUP/EPI 0.5% 1:200,000 (MARCAINE) 10ML VIAL IJ ONE (10:10)
[2020-02-10] MEDS ORDERED: LIDOCAINE PF 2% 5 ML (XYLOCAINE) VIAL ONE (10:17)
[2020-02-10] MEDS ORDERED: GLYCOPYRROLATE 0.2 MG/ML (ROBINUL) 2 ML VIAL ONE (10:17)
[2020-02-10] MEDS ORDERED: NEOSTIGMINE 3 MG/3 ML VIAL ONE (10:17)
[2020-02-10] MEDS ORDERED: ROCURONIUM 10 MG/ML 5 ML SYRINGE IV ONE ×2 (10:17→22:08)
[2020-02-10] MEDS ORDERED: proPOfol 200 MG/20 ML (DIPRIVAN) VIAL IV ONE (10:17)
[2020-02-10] MEDS ORDERED: ONDANSETRON 4 MG/2 ML (SDV) Z0FRAN ONE ×2 (10:17→22:07)
[2020-02-10] MEDS ORDERED: MIDAZOLAM 2 MG/2 ML (VERSED) VIAL ONE ×2 (10:18→22:12)
[2020-02-10] MEDS ORDERED: fentaNYL INJECTION 100 MCG/2 ML AMP ONE ×2 (10:18→22:08)
[2020-02-10] MEDS ORDERED: SEVOFLURANE (ULTANE) 15 ML INHAL SOLN ONE ×6 (10:19→23:15)
[2020-02-10] MEDS ORDERED: BUPIVACAINE 0.25% 30 ML (SENSORCAINE) VIAL ONE (11:39)
--- NOTE | 2020-02-10 12:06 | Progress Note-Post Operative ---
Post-Operative Progess Note Surgeon (s)/Monorail Operator (s) Surgeon ALEJANDRO VELAZQUEZ DO Monorail Operator: Nicholas Pre-Operative Diagnosis Descending/Sigmoid Colon CA Post-Operative Diagnosis Ascending Colon CA Procedure & Operative Findings Date of Procedure 02/10/20 Procedure Performed/Findings Open right colectomy with primary anastomosis Anesthesia Type GET Estimated Blood Loss Estimated blood loss (mL): scant Specimens/Packing Specimens Removed Asc colon, TI, appendix ALEJANDRO VELAZQUEZ DO Feb 10, 2020 12:06
[2020-02-10] MEDS ORDERED: PHENYLEPHRINE 100 MCG/ML 10 ML (ANESTHESIA) SYR ONE ×2 (12:24→23:15)
[2020-02-10] MEDS ORDERED: morphine INJ 10 MG/ML 1ML (SYR OR VIAL) IVP ONE (12:45)
[2020-02-10] MEDS ORDERED: PROMETHAZINE INJ 25 MG/ML (PHENERGAN) AMP IVP ONE (12:45)
[2020-02-10] MEDS ORDERED: ONDANSETRON 4 MG/2 ML (SDV) Z0FRAN IVP PRN (12:45)
--- NOTE | 2020-02-10 13:25 | NUR ---
PT TO ROOM 428 VIA BED ACCOMPANIED BY STAGE ELECTRICIAN HELPER. BEDSIDE REPORT RECEIVED. PT INTRODUCED TO SURROUNDINGS.
[2020-02-10] MEDS ORDERED: KETOROLAC 15 MG/ML VIAL ONE (13:32)
[2020-02-10] MEDS: KETOROLAC 15 MG/ML VIAL IVP SCH ×2 (13:39→18:13)
[2020-02-10] MEDS: ACETAMINOPHEN 500 MG TAB (TYLENOL) PO SCH ×2 (15:06→23:51)
[2020-02-10] MEDS: ENOXAPARIN 30 MG/0.3 ML (LOVENOX) SYR SC SCH (15:06)
[2020-02-10] MEDS: metroNIDAZOLE 500MG/100ML IVPB 100 ML IV SCH (15:06)
[2020-02-10] MEDS: LACTATED RINGERS 1,000 ML IV SCH ×2 (15:07→18:13)
[2020-02-10] MEDS: ONDANSETRON 4 MG/2 ML (SDV) Z0FRAN IVP PRN ×2 (18:13→20:20)
[2020-02-10] MEDS: ceFAZolin 2 GM IV Premixed 50 ML IV SCH (18:14)
[2020-02-10] MEDS ORDERED: LACTATED RINGERS 1,000 ML IV SCH (20:00)
--- NOTE | 2020-02-10 20:10 | NUR ---
1943- PHYSICAL ASSESSMENT DONE AT THIS TIME. PT ALERT AND ORIENTATED, APPEARS PALE. ABDOMEN SOFT, TENDERNESS REPORTED ON L SIDE. 8/10 PAIN. REPORTS FEELING NAUSEATED, HYPOACTIVE BOWEL SOUNDS. DENIES FEELING DIZZY. PCT ARRIVED IN ROOM TO OBTAIN VITAL SIGNS AT THIS TIME, BLOOD PRESSURE PER VITALS CART 71/47, PULSE 95. PCT ATTEMPTED TO OBTAIN A MANUAL B/P, UNABLE TO OBTAIN IT, THIS RN ATTEMPTED BUT UNABLE TO OBTAIN MANUAL B/P. 1950-DR VELAZQUEZ CALLED AT THIS TIME REGARDING B/P, AND ALL THE ABOVE ASSESSMENT WAS REPORTED TO DR VELAZQUEZ. DR VELAZQUEZ ORDERED TO BOLUS 1L LR. THIS NURSE WENT TO GIVE LR WIDE OPEN. ANOTHER B/P OBTAINED AND WAS STILL 70S/40S. MINUTES AFTER FLUID BOLUS STARTED, PT STARTED MAKING GURGLING SOUNDS IF SHE WERE TO THROW UP, AND BECAME UNRESPONSIVE WHEN THIS NURSE WAS TALKING TO HER. STERNAL RUB WAS UNABLE TO WAKEN PT. SAMPLE STITCHER WAS NOTIFIED BY ANOTHER RN IN THE MEAN TIME. 1999- THIS NURSE CALLED DR VELAZQUEZ AGAIN TO REPORT CHANGE IN PT STATUS. ORDERED TO CALL AN EMERGENCY CODE TO GET EVERYONE IN ROOM AND TRANSFER TO ICU. 2001- ATTEMPT TO CALL RAPID RESPONSE BUT NUMBER DID NOT GO THROUGH. STAFF ASSIST BUTTON PRESSED. AT THIS TIME PT O2 BEGAN TO DROP TO 83%, BUT BOUNCED RIGHT BACK TO 90'S. RADIAL PULSE WAS HARD TO PALPATE. PT BREATHING STOPPED FOR A FEW SECONDS, VITAL SIGN NOT PICKING UP PULSE OR O2, CODE BLUE CALLED BY THIS NURSE. PT O2 AND PULSE STARTED TO READ AGAIN, PULSE INCREASED TO THE 120S. BLOOD GLUCOSE WAS OBTAINED DUE TO PT HISTORY OF DIABETES, BLOOD SUGAR WAS IN THE 300S. DR ARREDONDO ARRIVED IN ROOM, THIS NURSE REPORTED THE SITUATION TO DR ARREDONDO, DR ARREDONDO ORDERED TO PIGGYBACK A FLUID BOLUS ON TOP OF THE ONE GOING. DR ARREDONDO CALLED TO TALK TO DR VELAZQUEZ. PT WAS TRANSPORTED TO ICU, REPORT GIVEN TO NAYELI AMARO. 2033- ATTEMPT TO CALL PT SON TO UPDATE, MESSAGE LEFT 2137- GAVE PT SON AN UPDATE.
[2020-02-10] MEDS ORDERED: PHENYLEPHRINE INJ 10 MG/ML (FOR DRIP KITS ONLY) ONE (20:45)
[2020-02-10] MEDS ORDERED: NS (IVPB) 250 ML ONE (20:45)
[2020-02-10 20:49] LABS: ABG BASE EXCESS -17.9 MMOL/L (-2.5-2.5); ABG OXYGEN SATURATION 100 % (94-100); ABG PO2 147 MMHG (79-93); ABG TCO2 9.3 MMOL/L (21.0-31.0)
[2020-02-10 20:53] LABS: BASOPHILS % (AUTO) 0 % (0-10); EOSINOPHILS % (AUTO) 0 % (0-10); LYMPHOCYTES # (AUTO) 0.8 X 10^3 (1.0-4.0); LYMPHOCYTES % (AUTO) 7 % (12-44); MEAN CORPUSCULAR HEMOGLOBIN 26 PG (25-34); MEAN CORPUSCULAR HGB CONC 31 G/DL (32-36); MEAN CORPUSCULAR VOLUME 83 FL (80-99); MEAN PLATELET VOLUME 10.9 FL (7.4-10.4); MONOCYTES # (AUTO) 0.5 X 10^3 (0.0-1.0); MONOCYTES % (AUTO) 4 % (0-12); NEUTROPHILS # (AUTO) 10.3 X 10^3 (1.8-7.8); NEUTROPHILS % (AUTO) 89 % (42-75); PLATELET COUNT 258 10^3/uL (130-400); RED CELL DISTRIBUTION WIDTH 14.9 % (10.0-14.5); WHITE BLOOD COUNT 11.6 10^3/uL (4.3-11.0)
[2020-02-10 20:57] LABS: ABG PCO2 19 MMHG (35-45); ABG PH 7.25 (7.37-7.43)
[2020-02-10 20:58] LABS: HEMOGLOBIN 4.9 G/DL (11.5-16.0)
[2020-02-10 20:58] LABS: ALLENS TEST YES-POS; INSPIRED O2 4L NC; PATIENT TEMP 33.5; VENTILATOR NO
[2020-02-10] MEDS ORDERED: NS IV 500 ML 500 ML ONE (20:58)
[2020-02-10 20:59] LABS: HEMATOCRIT 16 % (35-52)
[2020-02-10] MEDS ORDERED: NS IV 500 ML 500 ML IV SCH ×4 (21:03→21:30)
[2020-02-10] MEDS ORDERED: SODIUM BICARB 8.4% 50 MEQ/50 ML VIAL IV ONE (21:15)
[2020-02-10 21:23] LABS: BUN/CREATININE RATIO 10; CALCIUM 7.1 MG/DL (8.5-10.1); CARBON DIOXIDE 11 MMOL/L (21-32); CREATININE SERUM 0.82 MG/DL (0.60-1.30); GFR ESTIMATED > 60; GLUCOSE 329 MG/DL (70-105); MAGNESIUM 1.7 MG/DL (1.6-2.4); POTASSIUM 3.7 MMOL/L (3.6-5.0); SODIUM 136 MMOL/L (135-145)
[2020-02-10 21:26] LABS: HEMOGLOBIN 4.5 G/DL (11.5-16.0)
--- NOTE | 2020-02-10 21:30 | Diagnostic Imaging Report ---
INDICATION: Sepsis. COMPARISON: None. EXAMINATION: Single view of the chest was obtained. FINDINGS: Subtle infiltrates in the upper lung zones, bilaterally. There is no pneumothorax or effusion. The heart is normal. Osseous structures are age-appropriate. IMPRESSION: Subtle upper lung zone infiltrates. Follow-up recommended. Dictated by: Dictated on workstation # [id number]
[2020-02-10] MEDS ORDERED: NS IV 1000 ML 2,000 ML ONE (21:56)
--- NOTE | 2020-02-10 22:00 | NUR ---
TIMELINE NOTE: 2014: PATIENT TRANSFERRED FROM THE MEDICAL FLOOR TO ICU-12 VIA BED. PT CONNECTED TO MONITOR; HEART RATE 122, B/P 69/57, REPARATORY RATE: 18, 100% ON 4 L NC, 33.5 DEGREES CELSIUS TAKEN TYMPANICALLY. PT IS RESPONSIVE TO NAME AT THIS TIME. SHE IS ABLE TO LOOK AT THIS RN AND STATE HER NAME AND THAT SHE IS IN THE HOSPITAL BUT IMMEDIATELY FALLS BACK ASLEEP. PT IS VERY PALE AND EXTREMITIES ARE COOL TO THE TOUCH. WARM BLANKETS APPLIED TO PT. CLEAR YELLOW URINE NOTED IN COLLECTION CANISTER OF ROJAS CATHETER. PT APPEARS TO BE GRUNTING WITH EACH EXPIRATION WITH A HEAD NOD NOTED. LUNGS ARE CLEAR TO AUSCULTATE. MIDLINE TO PT'S ABDOMINAL INCISION HAS A SMALL AMOUNT OF SHADOWING NOTED; ABD IS DISTENDED BUT IS SOFT TO PALPATE. BOWEL SOUNDS ARE HYPOACTIVE. 20 G TO PT'S LEFT FOREARM IS PATENT WITH LR INFUSING VIA GRAVITY/PRESSURE BAG. E-ICU CALLED AT THIS TIME. THIS RN UPDATED DOCTOR ON PT'S CURRENT VITAL SIGNS AND BREATHING. NEW ORDERS RECEIVED TO ADD ABG AND BLOOD CULTURES TO LABS ALREADY BEING DRAWN CURRENTLY. SEE ORDER HISTORY FOR ADDITIONAL ORDERS. 2039: CRITICAL LAB RESULTS CALLED TO THIS RN: HEMOGLOBIN: 4.9, PH: 7.25, PCO2: 19, HCO3 9 AND LACTIC ACID >13.35. E-ICU AND NOTIFIED OF RESULTS. DR. VELAZQUEZ NOTIFIED OF LABS, CURRENT VITAL SIGNS AND PT'S CONDITION AT THIS TIME. NEW ORDER RECEIVED TO REPEAT H&H. AND DR. CRAFT TO COME IN TO PLACE CENTRAL LINE. SALES ATTENDANT NOTIFIED THIS RN THAT DR. VELAZQUEZ PLANS TO TAKE PT BACK TO SURGERY; SURGERY CREW HAS BEEN CALLED IN. R/T NOTIFIED OF PT'S CONDITION. 2114: CRITICAL LAB RESULT CALLED TO THIS RN: HEMOGLOBIN: 4.5. PT'S SON NOTIFIED OF CRITICAL CONDITION; SON TO COME IN AT THIS TIME. 2119: WEBSPHERE ARCHITECT AT BEDSIDE AT THIS TIME. 2129: PT PLACED ON BIPAP PER R/T AT 100% FIO2. DECISION MADE TO INTUBATE. 0: 6 ML OF ETOMIDATE AND 80 MG OF SUCCINYLCHOLINE GIVEN. PT INTUBATED WITH A 7.5 ET TUBE; COLOR CHANGE NOTED AND CONDENSATION IN THE TUBE. BREATH SOUNDS AUSCULTATED EQUAL BILATERALLY. 2149: DR. CRAFT AT BEDSIDE TO ASSESS PT AND PLACE CENTRAL LINE. RIGHT TRIPLE LUMEN IJ PLACED PER PHYSICIAN. 2200: MASS TRANSFUSER HOOKED UP TO PT AND WITH NS AND 1 UNIT OF PACKED RED BLOOD CELLS. 2210: PT TAKEN DOWN TO OR. 2330: PT BACK FROM SURGERY AND CONNECTED TO MONITORS. SEE INTERVENTIONS FOR VITAL SIGNS AND ASSESSMENTS. RECTAL THERMOMETER INSERTED: 32.5. WARM BLANKETS AND BEAR HUGGAR APPLIED TO PATIENT. X-RAY HERE FOR CHEST X-RAY. UA AND LABS COLLECTED AT THIS TIME. 0031: CRITICAL LAB RESULT CALLED TO THIS RN: ABDULKADIR 13.06. TO LOOK AT CHEST X-RAY TO CONFIRM PLACEMENT OF NG, CENTRAL LINE AND ETT. PT'S SBP NOW 180'S. NEW ORDER RECEIVED FOR 10 MG IV HYDRALAZINE Q2 PRN SBP >160 AND TO START A FENTANYL DRIP. 0200: THIS RN SPOKE WITH E-ICU DOCTOR: HEMOGLOBIN UP TO 12.5; OK TO HOLD OFF ON THE LAST TWO PRBC BUT GIVE LAST 2 FFP PER THE PROTOCOL, 500 ML LR BOLUS, AND TO REPEAT CBC, PT/INR AND ADD A FIBRINOGIN LEVEL. 0224: CRITICAL LAB RESULT CALLED TO THIS RN : ABDULKADIR 10.63; TRENDING DOWN. 0230: PT'S FAMILY IN THE WAITING ROOM AT THIS TIME. FAMILY UPDATED ON PT'S CONDITION. [place]APEL CALLED IN FOR SPIRITUAL SUPPORT. 0350: CRITICAL LAB RESULT CALLED TO THIS RN: ABDULKADIR 8.18; TRENDING DOWN. 0615: CRITICAL LAB RESULT CALLED TO THIS RN: ABDULKADIR 5.38; TRENDING DOWN.
[2020-02-10] MEDS ORDERED: ETOMIDATE IV SOLN 20 MG/10 ML VIAL ONE ×2 (22:07→23:15)
[2020-02-10 22:19] LABS: CHLORIDE 107 MMOL/L (98-107)
[2020-02-10] MEDS ORDERED: VASOPRESSIN INJECTION 20 UNIT/ML VIAL ONE (22:34)
--- NOTE | 2020-02-10 22:35 | OPERATIVE REPORT ---
DATE OF SERVICE: PREOPERATIVE DIAGNOSIS: Descending or sigmoid colon cancer. POSTOPERATIVE DIAGNOSIS: Ascending colon cancer. PROCEDURE: Open right hemicolectomy with primary anastomosis. SURGEON: Tanvir Cuevas DO HEART SPECIALIST: Brandon Peterson DO. ANESTHESIA: General endotracheal tube. SPECIMEN: Right colon with portion of terminal ileum and appendix. BLOOD LOSS: Minimal. FLUIDS: Per anesthesia. POSTOPERATIVE CONDITION: Stable. INDICATION FOR PROCEDURE: The patient is a 64-year-old female, who had a colonoscopy performed, which found a near obstructing colon lesion thought to be on the left side was tattooed. FINDINGS: The patient had a near obstructing colon lesion, it was actually on the right side. PROCEDURE NOTE: After informed consent was obtained, the patient was brought to the operating room, placed on the table in lithotomy position. She was sterilely prepped and draped in normal fashion. I started by making a midline incision just below the umbilicus approximately 8 cm incision was made with #15 blade, carried down through the skin into subcutaneous tissue, then deepened down to subcutaneous tissue with Bovie electrocautery down to the fascia. Fascia was incised with Bovie electrocautery and bluntly entered the abdomen, swept a finger around, then increased this fascial incision superiorly and inferiorly with Bovie electrocautery protecting the intestine with my hand. At this point, then started looking left in the descending and sigmoid colon could not feel any mass and then started running the large intestine and actually found the tattooing on the right side of the colon was actually mid ascending colon, the colon proximal to the cecum and the appendix was very dilated and there was some congestion in the vessels. At this point, started taking this right colon out freed up along the pericolic gutter with the Bovie electrocautery, freeing up this tissue and then carefully pulling the colon and terminal ileum into the midline, able to continue this dissection all the way up around the hepatic flexure, took down the hepatic flexure with Bovie electrocautery, able to bring this hepatic flexure and then transverse colon in, took some of the omentum off of the transverse colon. At this point, then made sure that we were at least 4 inches away from the obstructing colon lesion and then made a defect in the mesentery under the transverse colon with a Bovie electrocautery and then we did another defect in the mesentery under the terminal ileum, then made holes, one in the tinea and one in the antimesenteric border of the small intestine, put a ROBERT-75 with a large portion was placed in the transverse colon, a small portion was placed into the small intestine, clamped this together thereby creating a [id number] functional end-to-end anastomosis, held for 30 seconds and then fired and then used another ROBERT to close this enterocolotomy, clamped down, held for 30 seconds and then fired thereby creating this anastomosis. At this point, then started taking the mesentery down to the retroperitoneum try to stay away from the vessels to make sure we saw a good blood supply to the terminal ileum and the transverse colon. Using a LigaSure, clamping, coagulating and transecting and in a stepwise fashion, completely removing this portion of terminal ileum, appendix and the whole right colon. At this point, then elected to close this mesenteric defect with a 3-0 Vicryl running suture, closed this easily, also had placed a 3-0 Vicryl popoff suture at the crotch of the anastomosis. This looked nice. Copiously irrigated with normal saline. Hemostasis obtained. Dexter the liver, did not feel any other masses. At this point, then dropped everything back into the abdomen and elected to close the incision, closed with #1 double stranded PDS suture running from superior portion to inferior portion tying to itself and then copiously irrigated incisions with normal saline, closing the skin with lina. Area was cleaned and dried, dressing placed. The patient tolerated the procedure. Sponge, instrument and needle count correct at the end of the case. Dr. Peterson assisted in this case helping to make incision, close incisions, identify anatomy, and hold anatomy out of the way. Job ID: [id number] DocumentID: [id number] Dictated Date: 02/10/2020 16:37:56 Artist Relationship Manager Date: 02/10/2020 22:35:03 Dictated By: DO MELVINA WETZEL
[2020-02-10 22:55] LABS: BAND NEUTROPHILS 5 %; LYMPHOCYTES % (MANUAL) 8 %; MONOCYTES % (MANUAL) 3 %; NEUTROPHILS % (MANUAL) 84 %
[2020-02-10] MEDS ORDERED: HYDROmorphone 2 MG/ML VIAL (DILAUDID) ONE (23:12)
--- NOTE | 2020-02-10 23:22 | Progress Note-Post Operative ---
Post-Operative Progess Note Surgeon (s)/Lumber Puller (s) Surgeon ALEJANDRO VELAZQUEZ DO Lumber Puller: Nicholas Pre-Operative Diagnosis Profound Anemia, Hypotension, ??hemoperitoneum Post-Operative Diagnosis Hemoperitoneum Bleeding Right colic Artery; failure of Ligasure Anemia, Hypotension Procedure & Operative Findings Date of Procedure 02/10/20 Procedure Performed/Findings Ex Lap with Ligation of Right colic artery Abd washout Anesthesia Type GET Estimated Blood Loss Estimated blood loss (mL): 2000ml in abdomen, 50ml during Specimens/Packing Specimens Removed none ALEJANDRO VELAZQUEZ DO Feb 10, 2020 23:22
[2020-02-11] VITALS (36 sets, daily range): BP systolic 95–189; BP diastolic 39–65
[2020-02-11] MEDS ORDERED: fentaNYL INJECTION 100 MCG/2 ML AMP IVP ONE
[2020-02-11] MEDS ORDERED: hydrALAZINE (APESOLINE) 20 MG/ML VIAL ONE (00:27)
[2020-02-11] MEDS: KETOROLAC 15 MG/ML VIAL IVP SCH (00:37)
[2020-02-11] MEDS ORDERED: SODIUM BICARB 8.4% 50 MEQ/50 ML VIAL ONE (00:40)
[2020-02-11] MEDS ORDERED: 1/2 NS IV SOLUTION 1,000 ML IV ONE (00:40)
[2020-02-11] MEDS ORDERED: fentaNYL (OMNICELL DRIP KIT ONLY) 250 MCG/5 ML AMP ONE (00:45)
[2020-02-11] MEDS ORDERED: NS (IVPB) 100 ML ONE (00:45)
[2020-02-11] MEDS: hydrALAZINE (APESOLINE) 20 MG/ML VIAL IV PRN ×2 (00:53→19:39)
[2020-02-11] MEDS: SODIUM BICARBONATE 8.4% VIAL 100 MEQ in 1/2 NS IV SOLUTION 1,000 ML IV SCH ×4 (00:57→17:46)
[2020-02-11] MEDS: metroNIDAZOLE 500MG/100ML IVPB 100 ML IV SCH (01:04)
[2020-02-11] MEDS: ceFAZolin 2 GM IV Premixed 50 ML IV SCH (01:11)
[2020-02-11] MEDS: inSUlin ASPART (NovoLOG) 1 UNIT/0.01 ML (CHARGE PER UNIT) SC SCH ×5 (01:17→17:58)
[2020-02-11 01:47] LABS: INR 3.3 (0.8-1.4); PROTHROMBIN TIME PATIENT 33.5 SEC (12.2-14.7)
[2020-02-11 02:07] LABS: HEMOGLOBIN 12.5 G/DL (11.5-16.0)
[2020-02-11] MEDS ORDERED: LACTATED RINGERS 1,000 ML IV ONE (02:15)
[2020-02-11 02:33] LABS: BASOPHILS % (AUTO) 0 % (0-10); EOSINOPHILS % (AUTO) 0 % (0-10); HEMATOCRIT 38 % (35-52); HEMOGLOBIN 12.6 G/DL (11.5-16.0); LYMPHOCYTES # (AUTO) 2.3 X 10^3 (1.0-4.0); LYMPHOCYTES % (AUTO) 16 % (12-44); MEAN CORPUSCULAR HEMOGLOBIN 29 PG (25-34); MEAN CORPUSCULAR HGB CONC 33 G/DL (32-36); MEAN CORPUSCULAR VOLUME 87 FL (80-99); MEAN PLATELET VOLUME 10.9 FL (7.4-10.4); MONOCYTES # (AUTO) 0.3 X 10^3 (0.0-1.0); MONOCYTES % (AUTO) 2 % (0-12); NEUTROPHILS # (AUTO) 11.8 X 10^3 (1.8-7.8); NEUTROPHILS % (AUTO) 82 % (42-75); PLATELET COUNT 100 10^3/uL (130-400); RED CELL DISTRIBUTION WIDTH 16.2 % (10.0-14.5); WHITE BLOOD COUNT 14.4 10^3/uL (4.3-11.0)
[2020-02-11] MEDS: LACTATED RINGERS 1,000 ML IV SCH ×3 (02:38→20:20)
[2020-02-11] MEDS: fentaNYL INJECTION 500 MCG in NS (IVPB) 100 ML IV SCH ×3 (02:57→22:47)
[2020-02-11 03:10] LABS: PROTHROMBIN TIME PATIENT 28.4 SEC (12.2-14.7)
[2020-02-11 03:11] LABS: INR 2.6 (0.8-1.4)
[2020-02-11 04:04] LABS: ABG OXYGEN SATURATION 98 % (94-100); ABG PCO2 42 MMHG (35-45); ABG PO2 92 MMHG (79-93); ABG TCO2 19.4 MMOL/L (21.0-31.0)
[2020-02-11 04:11] LABS: ABG PH 7.25 (7.37-7.43)
[2020-02-11 04:12] LABS: ALLENS TEST YES-POS; INSPIRED O2 21%; PATIENT TEMP 36.2; VENTILATOR YES
[2020-02-11] MEDS: ACETAMINOPHEN 500 MG TAB (TYLENOL) PO SCH ×3 (04:37→19:39)
[2020-02-11 04:43] LABS: BUN/CREATININE RATIO 10; CALCIUM 7.6 MG/DL (8.5-10.1); CARBON DIOXIDE 15 MMOL/L (21-32); CHLORIDE 108 MMOL/L (98-107); CREATININE SERUM 0.86 MG/DL (0.60-1.30); GFR ESTIMATED > 60; GLUCOSE 229 MG/DL (70-105); MAGNESIUM 1.2 MG/DL (1.6-2.4); PHOSPHORUS 4.9 MG/DL (2.3-4.7); POTASSIUM 3.6 MMOL/L (3.6-5.0); SODIUM 138 MMOL/L (135-145)
[2020-02-11] MEDS: MAGNESIUM 1 GM/100 ML IVPB 100 ML IV SCH ×5 (05:37→07:59)
[2020-02-11] MEDS: POTASSIUM CL 10MEQ/50ML IVPB 50 ML IV SCH ×3 (05:37→06:43)
[2020-02-11] MEDS: KCL 20 MEQ TAB (K-DUR) PO SCH (05:38)
--- NOTE | 2020-02-11 06:47 | Diagnostic Imaging Report ---
INDICATION: Respiratory failure Portable chest 11:48 PM ET tube projects over the trachea. NG tube projects over the stomach. Right jugular central line tip projects over the SVC. Heart and mediastinum are normal. Lungs are clear. There are no effusions or pneumothoraces. There are some linear lucency at the right lung base that could be due to pneumoperitoneum. IMPRESSION: Unremarkable chest. Questionable pneumoperitoneum. Critical finding: Report was called to [facility] by sharad at 6:48AM. Dictated by: Dictated on workstation # [id number]
[2020-02-11] MEDS: PANTOPRAZOLE 40 MG (PROTONIX) VIAL IVP SCH (07:44)
--- NOTE | 2020-02-11 14:46 | Anesthesia-General Post-Op ---
General Patient Condition Mental Status/LOC: Same as Preop Cardiovascular: Satisfactory Nausea/Vomiting: Absent Respiratory: Unsatisfactory Pain: Controlled Complications: Absent Post Op Complications Complications None Follow Up Care/Instructions Patient Instructions None needed. Anesthesia/Patient Condition Patient Condition Patient remains intubated in ICU 12. On Bicarb gtt but otherwise off of Neosynephrine gtt since 0700. Overall, her VS have improved steadily throughout the day. On minimal amount of Fentanyl gtt for sedation and she is able to wake and follow commands. We will continue to be available for consultation. WILL CHAPMAN CRNA Feb 11, 2020 14:46
[2020-02-11] MEDS: ENOXAPARIN 30 MG/0.3 ML (LOVENOX) SYR SC SCH (15:00)
--- NOTE | 2020-02-11 17:16 | NUR ---
Pt taken down to ER entrance via wheel chair by NT. Erlin Personal belongings with pt at time of discharge. Addendum: 02/11/20 at 1802 by KATHY HERNÁNDEZ RN Note entered on wrong pt at this time.
--- NOTE | 2020-02-11 17:55 | Progress Note - Surgery ---
Subjective Time Seen by a Provider: 16:40 Subjective/Events-last exam Pt seen and examined; on vent but completely awake and aware, she is able to nod yes or no to questions. States she has moderate pain, controlled. Would like to come off vent. Review of Systems General: Fatigue Pulmonary: Other (on vent) Cardiovascular: No: Chest Pain Gastrointestinal: No: Nausea, Vomiting Focused Exam Lactate Level 02/11/20 03:50: Lactic Acid Level 8.18*H 02/11/20 06:15: Lactic Acid Level 5.38*H 02/11/20 08:13: Lactic Acid Level 3.73*H Objective Exam Vital Signs Date Time Temp Pulse Resp B/P (MAP) Pulse Ox O2 Delivery O2 Flow Rate FiO2 02/11/20 16:00 100 Mechanical Ventilator 21 02/11/20 16:00 37.8 02/11/20 14:28 95 12 99 21 02/11/20 13:00 97 11 124/50 (74) 99 Mechanical Ventilator 21.00 02/11/20 12:00 100 Mechanical Ventilator 21 02/11/20 12:00 103 12 139/54 (82) 99 Mechanical Ventilator 21.00 02/11/20 12:00 37.7 02/11/20 11:00 107 12 159/60 (93) 98 Mechanical Ventilator 21.00 02/11/20 10:48 109 14 99 21 02/11/20 10:00 99 6 124/53 (76) 100 Mechanical Ventilator 21.00 02/11/20 09:00 103 8 143/56 (85) 100 Mechanical Ventilator 21.00 02/11/20 08:49 37.3 104 16 145/57 100 Mechanical Ventilator 02/11/20 08:00 112 13 161/59 (93) 100 Mechanical Ventilator 21.00 02/11/20 08:00 37.3 02/11/20 08:00 100 Mechanical Ventilator 21 02/11/20 07:00 112 15 161/60 (93) 100 Mechanical Ventilator 21.00 02/11/20 07:00 111 02/11/20 06:49 112 16 100 21 02/11/20 06:00 37.2 108 14 136/40 100 Mechanical Ventilator 21 02/11/20 06:00 37.4 106 11 139/51 (80) 99 Mechanical Ventilator 21.00 02/11/20 05:00 37.1 107 109/49 (69) 98 Mechanical Ventilator 21.00 02/11/20 04:43 36.8 11 12 134/51 100 Mechanical Ventilator 21 02/11/20 04:28 36.9 107 12 100/47 97 Mechanical Ventilator 21 02/11/20 04:10 36.6 104 101/46 (64) 97 Mechanical Ventilator 21.00 02/11/20 04:00 36.4 106 109/49 (69) 97 Mechanical Ventilator 21.00 02/11/20 04:00 68 14 99 21 02/11/20 04:00 98 Mechanical Ventilator 21 02/11/20 04:00 36.4 105 14 101/46 97 Mechanical Ventilator 21 02/11/20 03:30 66 14 96 21 02/11/20 03:00 34.9 128 127/48 (74) 98 Mechanical Ventilator 21.00 02/11/20 02:44 34.9 130 12 147/54 98 Mechanical Ventilator 21 02/11/20 02:29 34.2 121 12 122/45 100 Mechanical Ventilator 21 02/11/20 02:00 33.6 118 95/42 (59) 96 Mechanical Ventilator 21.00 02/11/20 01:00 115 02/11/20 01:00 32.9 114 102/39 (60) 92 Mechanical Ventilator 21.00 02/11/20 00:25 35.2 20 165/60 (95) 100 Mechanical Ventilator 0 02/11/20 00:25 Mechanical Ventilator 0 02/11/20 00:15 Mechanical Ventilator 0 02/11/20 00:12 35.1 18 100 Mechanical Ventilator 0 02/11/20 00:02 20 100 Mechanical Ventilator 0 02/11/20 00:00 Mechanical Ventilator 0 02/11/20 00:00 76 145/54 (84) 100 Mechanical Ventilator 21.00 02/11/20 00:00 97 Mechanical Ventilator 21 02/10/20 23:50 18 106/50 (68) 100 Mechanical Ventilator 0 02/10/20 23:45 58 14 96 21 02/10/20 23:45 Mechanical Ventilator 0 02/10/20 23:40 18 108/55 (72) 100 Mechanical Ventilator 0 02/10/20 23:39 85 108/55 (72) 100 Mechanical Ventilator 21.00 02/10/20 23:36 36.0 18 108/55 (72) 100 Mechanical Ventilator 0 02/10/20 23:36 Mechanical Ventilator 0 02/10/20 23:10 Ambu Bag 02/10/20 23:07 Ambu Bag 02/10/20 23:06 Ambu Bag 02/10/20 23:05 Ambu Bag 02/10/20 23:04 Ambu Bag 02/10/20 23:01 Ambu Bag 02/10/20 22:00 92 70/48 (55) 89 Nasal Cannula 4.00 02/10/20 21:45 105 64/30 (41) 100 Nasal Cannula 4.00 02/10/20 21:30 117 77/34 (48) 100 Nasal Cannula 4.00 02/10/20 21:15 112 118/78 (91) 98 Nasal Cannula 4.00 02/10/20 21:00 113 83/39 (54) 100 Nasal Cannula 4.00 02/10/20 20:50 116 112/83 (93) 100 Nasal Cannula 4.00 02/10/20 20:30 113 82/74 (77) 100 Nasal Cannula 4.00 02/10/20 20:16 125 88/69 (75) Nasal Cannula 4.00 02/10/20 20:15 124 02/10/20 20:13 33.5 122 18 69/57 (61) 100 Nasal Cannula 4.00 02/10/20 19:44 Ambu Bag 02/10/20 19:43 36.0 95 20 71/47 (55) 100 Room Air 02/10/20 18:00 90/58 (69) I & O 02/11/20 07:00 Intake Total 3850 ml Output Total 3560 ml Balance 290 ml Capillary Refill : Less Than 3 SecondsLess Than 3 Seconds General Appearance: No Apparent Distress, Chronically ill HEENT: Other (on vent, has some edema in her face) Respiratory: Decreased Breath Sounds, Wheezing Cardiovascular: Regular Rate, Rhythm, No Murmur Gastrointestinal: soft, tenderness (mostly midline) Results Lab Laboratory Tests 02/10/20 20:03: Glucometer 328H 02/10/20 20:40: White Blood Count 11.6H, Red Blood Count 1.89L, Hemoglobin 4.9#*L, Hematocrit 16*L, Mean Corpuscular Volume 83, Mean Corpuscular Hemoglobin 26, Mean Corpuscular Hemoglobin Concent 31L, Red Cell Distribution Width 14.9H, Platelet Count 258, Mean Platelet Volume 10.9H, Neutrophils (%) (Auto) 89H, Lymphocytes (%) (Auto) 7L, Monocytes (%) (Auto) 4, Eosinophils (%) (Auto) 0, Basophils (%) (Auto) 0, Neutrophils # (Auto) 10.3H, Lymphocytes # (Auto) 0.8L, Monocytes # (Auto) 0.5, Eosinophils # (Auto) 0.0, Basophils # (Auto) 0.0, Neutrophils % (Manual) 84, Lymphocytes % (Manual) 8, Monocytes % (Manual) 3, Band Neutrophils 5, Sodium Level 136, Potassium Level 3.7, Chloride Level 107, Carbon Dioxide Level 11L, Anion Gap 18H, Blood Urea Nitrogen 8, Creatinine 0.82, Estimat Glomerular Filtration Rate > 60, BUN/Creatinine Ratio 10, Glucose Level 329H, Lactic Acid Level > 13.35*H, Calcium Level 7.1L, Phosphorus Level 6.0H, Magnesium Level 1.7, Troponin I 0.028, Procalcitonin 0.18H 02/10/20 20:45: Blood Gas Puncture Site RT BRACH, Blood Gas Patient Temperature 33.5, Arterial Blood pH 7.25*L, Arterial Blood Partial Pressure CO2 19*L, Arterial Blood Partial Pressure O2 147H, Arterial Blood HCO3 9*L, Arterial Blood Total CO2 9.3L , Arterial Blood Oxygen Saturation 100, Arterial Blood Base Excess -17.9L, David Test YES-POS, Blood Gas Ventilator Setting NO, Blood Gas Inspired Oxygen 4L NC 02/10/20 21:15: Hemoglobin 4.5*L, Hematocrit 14*L 02/11/20 00:31: Hemoglobin 12.5#, Hematocrit 38, Prothrombin Time 33.5H, INR Comment 3.3H, Lactic Acid Level 13.06*H 02/11/20 01:15: Glucometer 197H 02/11/20 02:24: Hemoglobin 12.6, Hematocrit 38, Prothrombin Time 28.4H, INR Comment 2.6H, Lactic Acid Level 10.63*H, White Blood Count 14.4H, Red Blood Count 4.42, Mean Corpuscular Volume 87, Mean Corpuscular Hemoglobin 29, Mean Corpuscular Hemoglobin Concent 33, Red Cell Distribution Width 16.2H, Platelet Count 100L, Mean Platelet Volume 10.9H, Neutrophils (%) (Auto) 82H, Lymphocytes (%) (Auto) 16, Monocytes (%) (Auto) 2, Eosinophils (%) (Auto) 0, Basophils (%) (Auto) 0, Neutrophils # (Auto) 11.8H, Lymphocytes # (Auto) 2.3, Monocytes # (Auto) 0.3, Eosinophils # (Auto) 0.0, Basophils # (Auto) 0.0, Fibrinogen 184L 02/11/20 03:50: Lactic Acid Level 8.18*H, Blood Gas Puncture Site LT RADIAL, Blood Gas Patient Temperature 36.2, Arterial Blood pH 7.25*L, Arterial Blood Partial Pressure CO2 42, Arterial Blood Partial Pressure O2 92, Arterial Blood HCO3 18L, Arterial Blood Total CO2 19.4L, Arterial Blood Oxygen Saturation 98, Arterial Blood Base Excess -8.0L, David Test YES-POS, Blood Gas Ventilator Setting YES, Blood Gas Inspired Oxygen 21%, Sodium Level 138, Potassium Level 3.6, Chloride Level 108H, Carbon Dioxide Level 15L, Anion Gap 15H, Blood Urea Nitrogen 9, Creatinine 0.86, Estimat Glomerular Filtration Rate > 60, BUN/Creatinine Ratio 10, Glucose Level 229H, Calcium Level 7.6L, Phosphorus Level 4.9H, Magnesium Level 1.2L 02/11/20 06:15: Lactic Acid Level 5.38*H 02/11/20 08:13: Lactic Acid Level 3.73*H 02/11/20 12:16: Glucometer 157H 02/11/20 12:59: Lab Scanned Report Transfusion Reaction Form Microbiology 02/11/20 Gram Stain - Final, Resulted 02/11/20 Sputum Culture, Resulted Pending 02/10/20 Urine Culture - Final, Complete NO GROWTH 02/10/20 Blood Culture - Preliminary, Resulted No growth Assessment/Plan Assessment/Plan Assessment/Plan S/P Right Colon resection with subsequent take back for vascular bleed Pt had a very high SBP yesterday just preceding all of her problems; I believe it was this plus the failed Ligasure sealing (that machine actually got sent for repair later that night, because it was showing multiple faults) that caused her right colic to bleed. We were able to control that with exploratory laparotomy and ligation of the vessel. She appears to be doing much better now, Hg stable and mentation appears normal. Will get weaning parameters and see if we can get her off the vent. Will monitor her H/H, continue with pain control, get PT and OT to see pt. ALEJANDRO VELAZQUEZ DO Feb 11, 2020 17:55
--- NOTE | 2020-02-11 18:05 | NUR ---
Shift Summary: Pt has remained ventilated throughout shift. Pt has remained on minimal sedation and has remained on IV fentantyl drip during shift for pain. Pt is able to follow commands and expresses no pain at this time. Pt repositioned frequently during shift. Family updated via phone and at bedside during shift. Orders received from Faith to attempt to wean ventilator to extubate if possible this evening or in am. Pt appears comfortable at this time and will continue to monitor.
[2020-02-11 20:05] LABS: ABG BASE EXCESS 5.6 MMOL/L (-2.5-2.5); ABG OXYGEN SATURATION 99 % (94-100); ABG PCO2 39 MMHG (35-45); ABG PH 7.48 (7.37-7.43); ABG PO2 133 MMHG (79-93); ABG TCO2 30.2 MMOL/L (21.0-31.0)
[2020-02-11 20:07] LABS: ALLENS TEST POSITIVE; INSPIRED O2 FIO2 30%; PATIENT TEMP 37.7; VENTILATOR NO
--- NOTE | 2020-02-11 20:34 | NUR ---
TIME LINE NOTE: 2013- CONTACTED [facility]. SPOKE WITH DR. URIOSTEGUI. UPDATED HIM ON ABG RESULTS. DR. URIOSTEGUI CAMERA INTO ROOM AND ASSESSED PATIENT WITH THIS DUSTING AND BRUSHING MACHINE OPERATOR. GAVE ORDER TO EXTUBATE PATIENT. 2017- CONTACT RT. INFORMED OF ORDER TO EXTUBATE. 2024- EXTUBATED PATIENT, WITH NO DIFFICULTY. REQUIRING ROOM AIR, SATURATION 97%. RESTRAINTS REMOVED AT THIS TIME.
[2020-02-12] VITALS (25 sets, daily range): BP systolic 104–172; BP diastolic 46–65
[2020-02-12] MEDS: inSUlin ASPART (NovoLOG) 1 UNIT/0.01 ML (CHARGE PER UNIT) SC SCH ×4 (00:34→23:54)
[2020-02-12] MEDS: SODIUM BICARBONATE 8.4% VIAL 100 MEQ in 1/2 NS IV SOLUTION 1,000 ML IV SCH ×2 (03:24→12:12)
[2020-02-12 03:31] LABS: BASOPHILS % (AUTO) 0 % (0-10); EOSINOPHILS % (AUTO) 0 % (0-10); HEMATOCRIT 29 % (35-52); HEMOGLOBIN 10.1 G/DL (11.5-16.0); LYMPHOCYTES # (AUTO) 0.6 X 10^3 (1.0-4.0); LYMPHOCYTES % (AUTO) 6 % (12-44); MEAN CORPUSCULAR HEMOGLOBIN 28 PG (25-34); MEAN CORPUSCULAR HGB CONC 35 G/DL (32-36); MEAN CORPUSCULAR VOLUME 82 FL (80-99); MONOCYTES # (AUTO) 0.2 X 10^3 (0.0-1.0); MONOCYTES % (AUTO) 2 % (0-12); NEUTROPHILS % (AUTO) 91 % (42-75); PLATELET COUNT 64 10^3/uL (130-400); RED CELL DISTRIBUTION WIDTH 16.6 % (10.0-14.5); WHITE BLOOD COUNT 8.8 10^3/uL (4.3-11.0)
[2020-02-12 03:51] LABS: BUN/CREATININE RATIO 19; CALCIUM 7.6 MG/DL (8.5-10.1); CARBON DIOXIDE 24 MMOL/L (21-32); CHLORIDE 101 MMOL/L (98-107); CREATININE SERUM 0.78 MG/DL (0.60-1.30); GFR ESTIMATED > 60; GLUCOSE 125 MG/DL (70-105); SODIUM 137 MMOL/L (135-145)
[2020-02-12] MEDS: ACETAMINOPHEN 500 MG TAB (TYLENOL) PO SCH ×3 (04:15→21:04)
[2020-02-12] MEDS: LACTATED RINGERS 1,000 ML IV SCH ×3 (04:15→22:24)
[2020-02-12] MEDS: MAGNESIUM 1 GM/100 ML IVPB 100 ML IV SCH (04:28)
[2020-02-12] MEDS: POTASSIUM CL 10MEQ/50ML IVPB 50 ML IV SCH ×4 (04:28→06:41)
[2020-02-12] MEDS: KCL 20 MEQ TAB (K-DUR) PO SCH (04:29)
[2020-02-12] MEDS ORDERED: POTASSIUM CL 10MEQ/50ML IVPB 50 ML IV ONE (04:30)
[2020-02-12] MEDS: fentaNYL INJECTION 500 MCG in NS (IVPB) 100 ML IV SCH ×2 (04:41→19:43)
--- NOTE | 2020-02-12 06:06 | OPERATIVE REPORT ---
DATE OF SERVICE: 02/10/2020 PREOPERATIVE DIAGNOSES: Profound anemia, hypotension, questionable hemoperitoneum. POSTOPERATIVE DIAGNOSES: Hemoperitoneum, bleeding right colic artery secondary to failure of LigaSure, anemia and hypotension. PROCEDURE: Exploratory laparotomy with ligation of right colic artery and abdominal washout. SURGEON: Tanvir Cuevas DO PLANISHING HAMMER OPERATOR: Brandon Peterson DO ANESTHESIA: General endotracheal tube. SPECIMEN: None. BLOOD LOSS: Approximately 2000 mL of blood in the abdomen and about 50 mL occurred during the procedure. INDICATION FOR PROCEDURE: The patient is a 64-year-old female who had surgery earlier in the day, was doing fine, but then all of a sudden became lethargic and unresponsive, hypotensive, transferred to ICU and hemoglobin came back at 4.5. Quick ultrasound showed there may have been some fluid in the abdomen and she was taken emergently to the OR. FINDINGS: The patient had approximately 2000 mL of blood in her belly and we found what looked like the right colic artery that was bleeding, like LigaSure had popped off. Of note, just before all this occurred, the patient had a very elevated blood pressure, systolic of 190, which may have contributed to the LigaSure failure and thus popping off the seal. PROCEDURE NOTE: The patient was emergently brought down to the operating room. She had already been intubated. She was quickly prepped and draped, then removed the lina and then opened the abdomen. Upon entering, noted blood, started pulling out intestine moving out of the way, found more blood, packed the abdomen and then started looking around. Suctioned out probably 1200 mL of dark blood as well as some red blood. When we were looking down in the mesentery, saw a pulsating artery, looked like the right colic artery, able to grasp this and then did a suture ligation with 0 Vicryl suture. At this point, we again packed and held pressure. We held for about 10 minutes and then removed all packs and then copiously irrigated with 6 liters of warm normal saline. The patient was also hypothermic. The artery was not bleeding anymore. There was some mild bleeding from the mesentery. We placed some Surgicel, suctioned out all the blood and had found no more bleeding, held pressure for another 10 minutes with a Surgicel and there was no bleeding from the mesentery. No other active bleeding. The intestine all looked pink and viable. There was no ischemic bowel. At this time, then elected to close the incision. We had increased it slightly with the Bovie electrocautery. We closed it again with #1 double stranded PDS suture running from superior portion to inferior portion, tying to itself, irrigating the midline incision and closing the skin with lina. Area was cleaned and dried, dressing placed. The patient transferred to ICU in stable condition. Her skin actually looked pink when she left the OR. Dr. Peterson assisted in this case helping to make incision, close incision as well as identify anatomy, hold anatomy out of the way. Job ID: [id number] DocumentID: [id number] Dictated Date: 02/11/2020 18:00:38 Chainstitch Zipper Setter Date: 02/12/2020 06:05:29 Dictated By: DO MELVINA WETZEL
--- NOTE | 2020-02-12 06:47 | OPERATIVE REPORT ---
DATE OF SERVICE: 02/10/2020 PREOPERATIVE DIAGNOSES: Emergent need a central line, anemia and hypotension. POSTOPERATIVE DIAGNOSES: Emergent need a central line, anemia and hypotension. PROCEDURE: Right internal jugular vein ultrasound-guided central line placement. SURGEON: Ashok Peterson DO ANESTHESIA: 3 mL of 1% lidocaine. ESTIMATED BLOOD LOSS: Minimal. COMPLICATIONS: None. INDICATIONS: The patient is a 64-year-old female who is hypotensive and severely anemic, needing central line placement. She is in the intensive care unit and plan on going to the operating room. DESCRIPTION OF PROCEDURE: The patient was prepped and draped in a sterile fashion. Timeout was performed. Ultrasound was used to isolate the right internal jugular vein. Local anesthetic was infiltrated and under ultrasound guidance, the right internal jugular vein was then accessed, dark nonpulsatile blood was withdrawn. Guidewire was inserted through the needle and the needle was removed. A #11 blade scalpel was used to make a small stab incision and the dilator was then advanced over the guidewire and removed. The triple lumen catheter was advanced over the guidewire and the wire was removed. All ports were accessed and flushed without difficulty. The catheter was sewn into place and the area was washed and dried and sterile bandage was applied. The patient tolerated procedure well without any complications. Chest x-ray pending. Job ID: [id number] DocumentID: [id number] Dictated Date: 02/11/2020 20:40:32 Collection Systems Consultant Date: 02/12/2020 06:47:06 Dictated By: ASHOK PETERSON DO
[2020-02-12] MEDS: PANTOPRAZOLE 40 MG (PROTONIX) VIAL IVP SCH (07:35)
[2020-02-12] MEDS: hydrALAZINE (APESOLINE) 20 MG/ML VIAL IV PRN ×3 (07:39→22:24)
--- NOTE | 2020-02-12 08:14 | Diagnostic Imaging Report ---
INDICATION: Shortness of breath Portable chest 3:20 AM NG tube projects over the stomach. Right IJ central line tip projects over the SVC. Heart and mediastinum are normal. Lungs are clear. Lucency parallel to the right hemidiaphragm is again noted. IMPRESSION: There has been interval removal of ET tube. Chest otherwise stable. Pneumoperitoneum cannot be excluded. Dictated by: Dictated on workstation # [id number]
--- NOTE | 2020-02-12 08:55 | Progress Note - Surgery ---
LATOSHA HARRY MED STUDENT 02/12/20 0855: Subjective Date Seen by a Provider: Feb 12, 2020 Time Seen by a Provider: 08:40 Subjective/Events-last exam Pt was seen and examined this morning. She has been extubated, can follow commands and is feeling better than yesterday. She is mildly tachycardic at 126 bpm. She denies shortness of breath and reports no abdominal pain or issues with her incision. Her hemoglobin today is 10.1 and her lactic acid has come down to 0.72. Focused Exam Lactate Level 02/11/20 06:15: Lactic Acid Level 5.38*H 02/11/20 08:13: Lactic Acid Level 3.73*H 02/12/20 03:24: Lactic Acid Level 0.72 Objective Exam Vital Signs Date Time Temp Pulse Resp B/P (MAP) Pulse Ox O2 Delivery O2 Flow Rate FiO2 02/12/20 08:00 126 26 107/50 (69) 95 Room Air 02/12/20 07:00 110 15 150/58 (88) 95 Room Air 02/12/20 06:00 37.5 101 14 137/57 (83) 96 Room Air 02/12/20 05:00 37.5 113 16 155/59 (91) 96 Room Air 02/12/20 04:00 37.6 106 12 163/60 (94) 96 Room Air 02/12/20 03:25 98 Room Air 02/12/20 03:00 37.7 122 15 156/60 (92) 97 Room Air 02/12/20 02:00 37.7 115 18 147/59 (88) 96 Room Air 02/12/20 01:00 112 02/12/20 01:00 37.7 112 17 155/58 (90) 95 Room Air 02/12/20 00:34 96 Room Air 02/12/20 00:00 37.7 114 15 150/56 (87) 96 Room Air 02/11/20 23:00 37.6 112 20 154/57 (89) 96 Room Air 02/11/20 22:00 37.5 101 17 147/52 (83) 97 Room Air 02/11/20 21:00 37.5 112 15 130/49 (76) 97 Room Air 02/11/20 20:28 97 Room Air 02/11/20 20:25 37.5 Room Air 02/11/20 20:00 37.7 124 22 117/46 (69) 99 Mechanical Ventilator 30.00 02/11/20 19:22 100 Mechanical Ventilator 30 02/11/20 19:22 Mechanical Ventilator 30.00 02/11/20 19:00 105 02/11/20 19:00 37.6 Mechanical Ventilator 30.00 02/11/20 19:00 105 11 189/65 (106) 100 Mechanical Ventilator 30.00 02/11/20 18:54 106 12 100 30 02/11/20 18:45 111 15 97 21 02/11/20 18:00 106 11 139/51 (80) 99 Mechanical Ventilator 21.00 02/11/20 17:00 107 109/49 (69) 98 Mechanical Ventilator 21.00 02/11/20 16:00 100 Mechanical Ventilator 21 02/11/20 16:00 37.8 02/11/20 16:00 106 109/49 (69) 97 Mechanical Ventilator 21.00 02/11/20 15:00 128 127/48 (74) 98 Mechanical Ventilator 21.00 02/11/20 14:28 95 12 99 21 02/11/20 14:00 118 95/42 (59) 96 Mechanical Ventilator 21.00 02/11/20 13:00 97 11 124/50 (74) 99 Mechanical Ventilator 21.00 02/11/20 13:00 99 02/11/20 12:00 100 Mechanical Ventilator 21 02/11/20 12:00 103 12 139/54 (82) 99 Mechanical Ventilator 21.00 02/11/20 12:00 37.7 02/11/20 11:00 107 12 159/60 (93) 98 Mechanical Ventilator 21.00 02/11/20 10:48 109 14 99 21 02/11/20 10:00 99 6 124/53 (76) 100 Mechanical Ventilator 21.00 02/11/20 09:00 103 8 143/56 (85) 100 Mechanical Ventilator 21.00 I & O 02/12/20 07:00 Intake Total 1900 ml Output Total 700 ml Balance 1200 ml Capillary Refill : Less Than 3 SecondsLess Than 3 Seconds General Appearance: No Apparent Distress, Chronically ill HEENT: Other (on vent, has some edema in her face) Respiratory: Normal Breath Sounds, No Accessory Muscle Use, No Respiratory Distress Cardiovascular: Regular Rate, Rhythm, No Edema, No Gallop, No Murmur, Tachycardia (elevated to 126 bpm) Gastrointestinal: non tender, soft Extremity: No Calf Tenderness, No Pedal Edema Neurologic/Psychiatric: Alert Results Lab Laboratory Tests 02/11/20 12:16: Glucometer 157H 02/11/20 12:59: Lab Scanned Report Transfusion Reaction Form 02/11/20 17:43: Glucometer 135H 02/11/20 20:00: Blood Gas Puncture Site ART LINE, Blood Gas Patient Temperature 37.7, Arterial Blood pH 7.48H, Arterial Blood Partial Pressure CO2 39, Arterial Blood Partial Pressure O2 133H, Arterial Blood HCO3 29H, Arterial Blood Total CO2 30.2, Arterial Blood Oxygen Saturation 99, Arterial Blood Base Excess 5.6H, David Test POSITIVE, Blood Gas Ventilator Setting NO, Blood Gas Inspired Oxygen FIO2 30% 02/12/20 00:34: Glucometer 134H 02/12/20 03:24: White Blood Count 8.8, Red Blood Count 3.56L, Hemoglobin 10.1L, Hematocrit 29L, Mean Corpuscular Volume 82, Mean Corpuscular Hemoglobin 28, Mean Corpuscular Hemoglobin Concent 35, Red Cell Distribution Width 16.6H, Platelet Count 64L, Mean Platelet Volume 11.0H, Neutrophils (%) (Auto) 91H, Lymphocytes (%) (Auto) 6L, Monocytes (%) (Auto) 2, Eosinophils (%) (Auto) 0, Basophils (%) (Auto) 0, Neutrophils # (Auto) 8.0H, Lymphocytes # (Auto) 0.6L, Monocytes # (Auto) 0.2, Eosinophils # (Auto) 0.0, Basophils # (Auto) 0.0, Sodium Level 137, Potassium Level 3.0L, Chloride Level 101, Carbon Dioxide Level 24, Anion Gap 12, Blood Urea Nitrogen 15, Creatinine 0.78, Estimat Glomerular Filtration Rate > 60, BUN/Creatinine Ratio 19, Glucose Level 125H, Lactic Acid Level 0.72, Calcium Level 7.6L, Phosphorus Level 3.0, Magnesium Level 2.0 Microbiology 02/11/20 Gram Stain - Final, Resulted 02/11/20 Sputum Culture, Resulted Pending 02/10/20 Urine Culture - Final, Complete NO GROWTH 02/10/20 Blood Culture - Preliminary, Resulted No growth Assessment/Plan Assessment/Plan Assessment/Plan S/P Right Colon resection with subsequent take back for vascular bleed Pt came off her vent last night. She appears to be doing much better now, Hg st able and mentation appears normal. Will monitor her H/H, continue with pain control, get PT and OT to see pt. TANVIR VELAZQUEZ DO 02/12/201928: Subjective Time Seen by a Provider: 16:55 Subjective/Events-last exam Pt seen and examined, resting comfortably. Review of Systems General: No Fatigue Cardiovascular: No: Chest Pain, Palpitations Gastrointestinal: Abdominal Pain (very minimal at incision) Objective Exam General Appearance: No Apparent Distress, Thin Respiratory: Normal Breath Sounds, No Accessory Muscle Use, No Respiratory Distress Cardiovascular: Regular Rate, Rhythm, No Murmur Gastrointestinal: soft, other (incision is clean, dry and intact) Assessment/Plan Assessment/Plan Assessment/Plan Pt encouraged to use IS and work with PT; hopefully can walk soon. Will D/C hernandez in am, has been in place for accurate I&Os. Sips of clears,pain conrtrol as needed. Supervisory-Addendum Brief Verification & Attestation Participated in pt care: history, MDM, physical Personally performed: exam, history, MDM Care discussed with: Medical Student Procedures: n/a Verification and Attestation of Medical Student E/M Service A medical student performed and documented this service. I then reviewed and verified all information documented by the medical student and made modifications to such information, when appropriate. I personally performed a physical exam, medical decision making and then discussed any differences between the notes and made revisions as necessary to create one note. Tanvir Velazquez , 02/12/20 , 19:29 LATOSHA HARRY MED STUDENT Feb 12, 2020 08:55 TANVIR VELAZQUEZ DO Feb 12, 2020 19:29
[2020-02-12] MEDS: ENOXAPARIN 30 MG/0.3 ML (LOVENOX) SYR SC SCH (12:27)
[2020-02-12] MEDS ORDERED: NS IV 1000 ML 1,000 ML IV SCH (14:45)
--- NOTE | 2020-02-12 22:39 | NUR ---
THIS RN NOTIFIED DR. MORA AT [facility] OF PT'S HR SUSTAINING IN 120'S, HIGH BLOOD PRESSURE UP TO 190'S SYSTOLIC REQUIRING 10MG PRN HYDRALAZINE THAT IS ORDERED Q2HR (SEE EMAR), AND APPROXIMATELY 6 INCHES OF BLOOD IN NG TUBE. NEW ORDER RECEIVED FOR 250ML BOLUS OF NS OVER AN HOUR AND TO HOLD MAINTENANCE FLUIDS. ORDER TO DRAW LABS EARLY AT 0100.
[2020-02-12] MEDS ORDERED: NS (IVPB) 250 ML ONE (22:40)
[2020-02-12] MEDS ORDERED: NS 100 ML (IVPB) BAG IV ONE (22:45)
[2020-02-12] MEDS ORDERED: NS (IVPB) 250 ML IV ONE (23:00)
--- NOTE | 2020-02-12 23:42 | NUR ---
THIS RN NOTIFIED DR. MORA AT [facility] OF PATIENT CONTINUED TACHYCARDIA OF 120'S DESPITE RECEIVING 250ML NS BOLUS AND SBP 160-170'S. NEW ORDERS RECEIVED TO RESTART MAINTENANCE FLUIDS LR @100 ML/HR AND DRAW AM LABS NOW AND ADD BNP.
[2020-02-13] VITALS (28 sets, daily range): BP systolic 114–180; BP diastolic 35–91
[2020-02-13 01:02] LABS: BASOPHILS % (AUTO) 0 % (0-10); EOSINOPHILS % (AUTO) 0 % (0-10); HEMATOCRIT 29 % (35-52); HEMOGLOBIN 9.6 G/DL (11.5-16.0); LYMPHOCYTES # (AUTO) 0.3 X 10^3 (1.0-4.0); LYMPHOCYTES % (AUTO) 4 % (12-44); MEAN CORPUSCULAR HEMOGLOBIN 28 PG (25-34); MEAN CORPUSCULAR HGB CONC 33 G/DL (32-36); MEAN CORPUSCULAR VOLUME 86 FL (80-99); MEAN PLATELET VOLUME 11.8 FL (7.4-10.4); MONOCYTES # (AUTO) 0.3 X 10^3 (0.0-1.0); MONOCYTES % (AUTO) 4 % (0-12); NEUTROPHILS # (AUTO) 7.7 X 10^3 (1.8-7.8); NEUTROPHILS % (AUTO) 92 % (42-75); PLATELET COUNT 64 10^3/uL (130-400); RED CELL DISTRIBUTION WIDTH 16.8 % (10.0-14.5); WHITE BLOOD COUNT 8.3 10^3/uL (4.3-11.0)
[2020-02-13 01:07] LABS: CHLORIDE 102 MMOL/L (98-107); POTASSIUM 3.1 MMOL/L (3.6-5.0); SODIUM 139 MMOL/L (135-145)
[2020-02-13 01:09] LABS: CALCIUM 7.6 MG/DL (8.5-10.1); GLUCOSE 144 MG/DL (70-105)
[2020-02-13 01:11] LABS: CARBON DIOXIDE 23 MMOL/L (21-32)
[2020-02-13 01:13] LABS: CREATININE SERUM 0.71 MG/DL (0.60-1.30); GFR ESTIMATED > 60; PHOSPHORUS 2.8 MG/DL (2.3-4.7)
[2020-02-13 01:14] LABS: BUN/CREATININE RATIO 24
[2020-02-13 01:15] LABS: MAGNESIUM 1.9 MG/DL (1.6-2.4)
[2020-02-13] MEDS: hydrALAZINE (APESOLINE) 20 MG/ML VIAL IV PRN ×3 (01:30→20:21)
[2020-02-13] MEDS: POTASSIUM CL 10MEQ/50ML IVPB 50 ML IV SCH ×5 (01:38→05:50)
[2020-02-13] MEDS ORDERED: fentaNYL (OMNICELL DRIP KIT ONLY) 250 MCG/5 ML AMP ONE (03:22)
[2020-02-13] MEDS ORDERED: NS (IVPB) 100 ML ONE (03:23)
[2020-02-13] MEDS: fentaNYL INJECTION 500 MCG in NS (IVPB) 100 ML IV SCH (03:36)
[2020-02-13] MEDS: ACETAMINOPHEN 500 MG TAB (TYLENOL) PO SCH ×3 (03:39→20:03)
[2020-02-13] MEDS ORDERED: fentaNYL INJECTION 500 MCG in NS (IVPB) 90 ML IV SCH (03:45)
[2020-02-13] MEDS: LACTATED RINGERS 1,000 ML IV SCH ×3 (05:50→20:21)
[2020-02-13] MEDS: KCL 20 MEQ TAB (K-DUR) PO SCH (05:50)
[2020-02-13] MEDS: MAGNESIUM 1 GM/100 ML IVPB 100 ML IV SCH (05:50)
[2020-02-13] MEDS: inSUlin ASPART (NovoLOG) 1 UNIT/0.01 ML (CHARGE PER UNIT) SC SCH ×3 (05:54→17:46)
--- NOTE | 2020-02-13 06:30 | NUR ---
THIS RN NOTIFIED DR. MORA AT [facility] OF PATIENT'S SUSTAINING HR IN 100-120'S. NO NEW ORDERS RECEIVED AT THIS TIME.
--- NOTE | 2020-02-13 06:47 | NUR ---
THIS RN SENT DR. VELAZQUEZ UPDATE ON PATIENT STATUS INCLUDING: HR SUSTAINING IN 100'S-120'S, HTN CONTROLLED BY PRN HYDRALAZINE (SEE EMAR AND INTERVENTIONS), HGB OF 9.6, PLATELETS 64, BNP 275.4.
[2020-02-13] MEDS ORDERED: ONDANSETRON 4 MG (ZOFRAN) ORAL DISSOLVE TAB ONE (08:14)
--- NOTE | 2020-02-13 08:35 | NUR ---
PT in room working with pt
[2020-02-13] MEDS: PANTOPRAZOLE 40 MG (PROTONIX) VIAL IVP SCH (08:43)
[2020-02-13] MEDS: lisINopril 5 MG (PRINIVIL) TABLET NG SCH (08:44)
--- NOTE | 2020-02-13 09:38 | Physical Therapy Evaluation ---
PT Evaluation-General Medical Diagnosis Admission Date Feb 10, 2020 at 09:45 Medical Diagnosis: colon ca Onset Date: Feb 13, 2020 Therapy Diagnosis Therapy Diagnosis: weakness Precautions Precautions/Isolations: Aspiration, Fall Prevention, Standard Precautions Referral Physician: Faith Reason for Referral: Evaluation/Treatment Medical History Pertinent Medical History: DM, HTN Current History Post colon resection; Colon CA Reviewed History: Yes Social History Unsure at this time, limited communication from patient. she did acknowledge that she lives in [facility] but unable to provide other details. Prior Prior Level of Function SCALE: Activities may be completed with or without assistive devices. 5-Emlcxdukct-yfjqujd completes the activity by him/herself with no assistance from a helper. 5-Set-up or Clean-up Assistance-helper sets up or cleans up; patient completes activity. [place] assists only prior to or following the activity. 4-Supervision or Touching Assistance-helper provides verbal cues and/or touching/steadying and/or contact guard assistance as patient completes activity. Assistance may be provided throughout the activity or intermittently. 3-Partial/Moderate Assistance-helper does LESS THAN HALF the effort. [place] lifts, holds or supports trunk or limbs, but provides less than half the effort. 2-Substantial/Maximal Assistance-helper does MORE THAN HALF the effort. [place] lifts or holds trunk or limbs and provides more than half the effort. 3-Vobkidzqc-gcbxok does ALL the effort. Patient does none of the effort to complete the activity. Or, the assistance of 2 or more helpers is required for the patient to complete the activity. If activity was not attempted, code reason: 7-Patient Refused. 9-Not Applicable-not attempted and the patient did not perform the activity before the current illness, exacerbation or injury. 10-Not Attempted due to Environmental Limitations-(lack of equipment, weather restraints, etc.). 88-Not Attempted due to Medical Conditions or Safety Concerns. Unsure at this time. Pt unable to provide details. PT Evaluation-Current Subjective Groggy. Agrees to PT. Limited communication. Objective Patient Orientation: Unable to Assess Attachments: NG Tube, SCD's, Oxygen, Drains, Mccallum Catheter, IV ROM/Strength ROM Lower Extremities WFL Strength Lower Extremities WFL Integumentary/Posture Integumentary Refer to nursing note.s Bowel Incontinence: No Bladder Incontinence: Mccallum Cath Posture rounded shoulders Neuromuscular (Tone, Coordination, Reflexes) intact Transfers Roll Left to Right (QC): 2 Sit to Lying (QC): 2 Lying to Sitting/Side of Bed(Q: 2 Sit to Stand (QC): 2 (unable to come to afull stand. alona mendez she did attempt to stand up) Follows cues vaguely but needs max assist to complete. Pt sat EOB several minutes and performed LE movement and deep breathing. Balance Sitting Static: Fair Sitting Dynamic: Fair Treatment EOB sitting and pt worked on gently AP and LAQ to facilitate circulation; deep breathing performed. Pt in bed with all attachments in place, O2 in situ, SCD's in place and needs met. Heels elevated. Assessment/Needs Post colon surgery. Groggy today with decreased alertness, but did follow cues. Minimal converation. Mod to max assist due to level of alertness. She will beneift from skilled PT to progress mobility and enhance her ability to care for herself. She does have potential to make gains. 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 Senior Living Goals PT Senior Living Goals Time Frame: Feb 19, 2020 Sit to Lying (QC): 6 Lying-Sitting on Side/Bed(QC): 6 Sit to Stand (QC): 6 Walk 150 ft (QC): 6 PT Plan Problem List Problem List: Activity Tolerance, Functional Strength, Safety, Balance, Gait, Transfer, Bed Mobility Treatment/Plan Treatment Plan: Continue Plan of Care Treatment Plan: Bed Mobility, Education, Functional Activity Tatiana, Functional Strength, Gait, Safety, Therapeutic Exercise, Transfers Treatment Duration: Feb 19, 2020 Frequency: 6 times per week Estimated Hrs Per Day: .25 hour per day Patient and/or Family Agrees t: Yes Safety Risks/Education Patient Education: Transfer Techniques Teaching Recipient: Patient Teaching Methods: Demonstration Response to Teaching: Reinforcement Needed Discharge Recommendations Therapy Discharge Recommendati: Post Acute PT Time/GCodes Time In: 820 Time Out: 843 Total Billed Treatment Time: 23 Total Billed Treatment visit EVM 15 FA 8 JAYME CASEY PT Feb 13, 2020 09:38
--- NOTE | 2020-02-13 10:11 | Diagnostic Imaging Report ---
INDICATION: Dyspnea. TECHNIQUE: Single view chest 3:51 AM. CORRELATION STUDY: 02/12/2020 FINDINGS: Gastric tube and right IJ central line remain in place. Heart size and mediastinum are stable. Vasculature appears increasing from prior. Adverse changes of the lung pulido. There is opacities in the perihilar and basilar regions, indeterminate whether this is edema versus infiltrate. Bilateral pleural effusions are also suggested. Small amount of pneumoperitoneum below the right diaphragm is again demonstrated. IMPRESSION: 1. Adverse change at follow-up examination. Component of vascular congestion appears present. 2. Increasing opacities throughout both lung pulido may be underlying edema versus infiltrate but are significantly adversely changed. Bilateral pleural effusions. 3. Findings consistent with pneumoperitoneum below the right diaphragm, generally stable. Dictated by: Dictated on workstation # [id number]
[2020-02-13] MEDS ORDERED: fentaNYL INJECTION 1,250 MCG in NS (IVPB) 250 ML IV SCH (10:30)
--- NOTE | 2020-02-13 10:57 | Occupational Therapy Eval ---
OT Evaluation-General/PLF Medical Diagnosis Admission Date Feb 10, 2020 at 09:45 Medical Diagnosis: colon ca Onset Date: Feb 10, 2020 Therapy Diagnosis Therapy Diagnosis: decr self care, decr funct mob, edema, decr activ participation Precautions Precautions/Isolations: Aspiration, Fall Prevention, Standard Precautions Referral Physician: Faith Referral Reason: Evaluation/Treatment Medical History Pertinent Medical History: DM, HTN Additional Medical History Diarrhea Current History Pt had colectomy with anastamosis and takeback for bleeding on 02/10/2020, for colon cancer. Extubated last night. Reviewed History: Yes ADL-Prior Level of Function SCALE: Activities may be completed with or without assistive devices. 2-Ptzjyhyohz-ceeqwux completes the activity by him/herself with no assistance from a helper. 5-Set-up or Clean-up Assistance-helper sets up or cleans up; patient completes activity. [place] assists only prior to or following the activity. 4-Supervision or Touching Assistance-helper provides verbal cues and/or touching/steadying and/or contact guard assistance as patient completes activity. Assistance may be provided throughout the activity or intermittently. 3-Partial/Moderate Assistance-helper does LESS THAN HALF the effort. [place] lifts, holds or supports trunk or limbs, but provides less than half the effort. 2-Substantial/Maximal Assistance-helper does MORE THAN HALF the effort. [place] lifts or holds trunk or limbs and provides more than half the effort. 0-Ehaedtudg-gnjuuc does ALL the effort. Patient does none of the effort to complete the activity. Or, the assistance of 2 or more helpers is required for the patient to complete the activity. If activity was not attempted, code reason: 7-Patient Refused. 9-Not Applicable-not attempted and the patient did not perform the activity before the current illness, exacerbation or injury. 10-Not Attempted due to Environmental Limitations-(lack of equipment, weather restraints, etc.). 88-Not Attempted due to Medical Conditions or Safety Concerns. ADL PLOF Comments Unknown living situation except that she lives in [facility]. Pt unable to give social history or prior functional status due to lethargy OT Current Status Subjective Pt seen in room, up in bed, agreeable to OT. pt unable to indicate if she is in pain Appearance Lethargic. Able to nod verification that her birthday is in [birth year] Mental Status/Objective Attachments: Drains, Mccallum Catheter, NG Tube, Oxygen, Telemetry Current Upper Extremity ROM Pt able to raise both arms to chest level on request but unable to make a fist or follow muscle testing. Significant edema in bilat UEs limiting movement ADL-Treatment ADL-Current Pt is NPO and total care for toileting at this time. Per PT eval, required Max assist of two to sit EOB. Education OT Patient Education: Purpose of tx/functional activities, Rehab process Teaching Recipient: Patient Teaching Methods: Discussion Response to Teaching: Reinforcement Needed OT Hot Dog Vender Goals Hot Dog Vender Goals Time Frame: Feb 19, 2020 Eating (QC): 6 Oral Hygiene (QC): 5 Toileting Hygiene (QC): 5 Shower/Bathe Self (QC): 5 Upper Body Dressing (QC): 5 Lower Body Dressing (QC): 5 On/Off Footwear (QC): 5 Additional Goals: 1-Demonstrate ADL Tasks, 2-Verbalize Understanding, 3- ImproveStrength/Tatiana 1=Demonstrate adherence to instructed precautions during ADL tasks. 2=Patient will verbalize/demonstrate understanding of assistive devices/modifications for ADL. 3=Patient will improve strength/tolerance for activity to enable patient to perform ADL's. OT Education/Plan Problem List/Assessment Assessment: Decreased UE Strength, Dependent Transfers, Edema, Impaired Bed Mobility, Impaired Self-Care Skills Pt would benefit from skilled OT to increase her independence in basic self care to allow her to safely return home Discharge Recommendations Plan/Recommendations: Continue POC Treatment Plan/Plan of Care Treatment,Training & Education: Yes Patient would benefit from OT for education, treatment and training to promote independence in ADL's, mobility, safety and/or upper extremity function for ADL's. Plan of Care: ADL Retraining, Functional Mobility, UE Funct Exercise/Act, UE Neuromus Re-Ed/Coord Treatment Duration: Feb 19, 2020 Frequency: 5 times per week Estimated Hrs Per Day: .25 hour per day Agreement: Yes Rehab Potential: Fair Time/GCodes Start Time: 10:42 Stop Time: 10:50 Total Time Billed (hr/min): 8 Billed Treatment Time visit, 8 minutes evaluation moderate intensity RUBI LUCAS OT Feb 13, 2020 10:57
--- NOTE | 2020-02-13 11:38 | Progress Note - Surgery ---
LATOSHA HARRY MED STUDENT 02/13/20 1138: Subjective Date Seen by a Provider: Feb 13, 2020 Time Seen by a Provider: 08:40 Subjective/Events-last exam Pt seen and examined. She is more awake and alert than yesterday and can respond with one word. She denies any abdominal pain, chest pain, shortness of breath, and chest pain. She remains mildly tachycardic and did have an elevated blood pressure in the night of 175/63 Focused Exam Lactate Level 02/11/20 06:15: Lactic Acid Level 5.38*H 02/11/20 08:13: Lactic Acid Level 3.73*H 02/12/20 03:24: Lactic Acid Level 0.72 Objective Exam Vital Signs Date Time Temp Pulse Resp B/P (MAP) Pulse Ox O2 Delivery O2 Flow Rate FiO2 02/13/20 11:00 36.7 89 15 128/35 (66) 93 Nasal Cannula 2.00 02/13/20 10:00 36.7 102 16 127/38 (67) 93 Nasal Cannula 2.00 02/13/20 09:00 36.7 113 16 146/46 (79) 97 Nasal Cannula 2.00 02/13/20 08:37 36.8 02/13/20 08:00 36.7 113 14 129/84 (99) 96 Nasal Cannula 2.00 02/13/20 07:30 96 Nasal Cannula 2.00 02/13/20 07:14 117 02/13/20 07:00 36.7 112 17 114/51 (72) 92 Nasal Cannula 2.00 02/13/20 06:00 36.8 101 16 163/64 (97) 91 Nasal Cannula 2.00 02/13/20 05:55 36.8 101 18 172/66 (101) 91 Nasal Cannula 2.00 02/13/20 05:00 36.9 116 21 151/63 (92) 95 Nasal Cannula 2.00 02/13/20 04:00 92 Nasal Cannula 3.00 02/13/20 04:00 36.9 110 13 142/56 (84) 93 Nasal Cannula 2.00 02/13/20 03:00 37.0 115 18 142/58 (86) 94 Nasal Cannula 2.00 02/13/20 02:00 37.0 123 16 132/52 (78) 95 Nasal Cannula 2.00 02/13/20 01:31 Nasal Cannula 2.00 02/13/20 01:25 37.1 115 19 175/63 (100) 98 Nasal Cannula 3.00 02/13/20 01:00 37.1 110 16 150/57 (88) 93 Nasal Cannula 3.00 02/13/20 01:00 115 02/13/20 00:26 37.1 112 17 148/52 (84) 92 Nasal Cannula 3.00 02/13/20 00:00 92 Nasal Cannula 3.00 02/13/20 00:00 37.2 118 18 166/57 (93) 91 Nasal Cannula 3.00 02/12/20 23:00 37.2 118 19 134/51 (78) 98 Nasal Cannula 3.00 02/12/20 22:00 37.1 104 14 162/56 (91) 95 Nasal Cannula 3.00 02/12/20 21:00 37.1 106 17 136/51 (79) 96 Nasal Cannula 3.00 02/12/20 20:13 37.2 103 13 167/64 (98) 92 Nasal Cannula 3.00 02/12/20 20:00 37.2 103 14 168/64 (98) 92 Nasal Cannula 2.00 02/12/20 20:00 37.2 02/12/20 20:00 92 Nasal Cannula 3.00 02/12/20 19:00 37.1 112 19 172/63 (99) 95 Nasal Cannula 2.00 02/12/20 19:00 101 02/12/20 18:00 37.1 111 17 164/60 (94) 91 Room Air 02/12/20 17:00 37.2 111 16 166/64 (98) 92 Room Air 02/12/20 16:00 37.2 102 16 150/55 (86) 92 Room Air 02/12/20 16:00 36.7 02/12/20 16:00 92 Nasal Cannula 2.00 02/12/20 15:00 37.2 112 17 166/64 (98) 96 Room Air 02/12/20 14:00 37.2 112 18 166/65 (98) 96 Room Air 02/12/20 13:01 106 02/12/20 13:00 37.3 112 15 156/58 (90) 91 Room Air 02/12/20 12:00 37.2 109 16 150/57 (88) 94 Room Air 02/12/20 12:00 100 Room Air I & O 02/13/20 07:00 Intake Total 2960 ml Output Total 1275 ml Balance 1685 ml Capillary Refill : Less Than 3 SecondsLess Than 3 Seconds General Appearance: No Apparent Distress, Thin HEENT: Other (on vent, has some edema in her face) Respiratory: No Accessory Muscle Use, No Respiratory Distress, Wheezing Cardiovascular: Regular Rate, Rhythm, No Murmur Gastrointestinal: soft, other (incision is clean, dry and intact) Extremity: No Calf Tenderness, No Pedal Edema Neurologic/Psychiatric: Alert Results Lab Laboratory Tests 02/12/20 11:58: Glucometer 117H 02/12/20 17:53: Glucometer 132H 02/12/20 23:53: Glucometer 137H 02/13/20 00:02: White Blood Count 8.3, Red Blood Count 3.40L, Hemoglobin 9.6L, Hematocrit 29L, Mean Corpuscular Volume 86, Mean Corpuscular Hemoglobin 28, Mean Corpuscular Hemoglobin Concent 33, Red Cell Distribution Width 16.8H, Platelet Count 64L, Mean Platelet Volume 11.8H, Neutrophils (%) (Auto) 92H, Lymphocytes (%) (Auto) 4L, Monocytes (%) (Auto) 4, Eosinophils (%) (Auto) 0, Basophils (%) (Auto) 0, Neutrophils # (Auto) 7.7, Lymphocytes # (Auto) 0.3L, Monocytes # (Auto) 0.3, Eosinophils # (Auto) 0.0, Basophils # (Auto) 0.0, Sodium Level 139, Potassium Level 3.1L, Chloride Level 102, Carbon Dioxide Level 23, Anion Gap 14, Blood Urea Nitrogen 17, Creatinine 0.71, Estimat Glomerular Filtration Rate > 60, BUN/Creatinine Ratio 24, Glucose Level 144H, Calcium Level 7.6L, Phosphorus Level 2.8, Magnesium Level 1.9 02/13/20 05:53: Glucometer 159H Microbiology 02/11/20 Gram Stain - Final, Complete 02/11/20 Sputum Culture - Final, Complete Usual upper respiratory duncan 02/10/20 Urine Culture - Final, Complete NO GROWTH 02/10/20 Blood Culture - Preliminary, Resulted No growth Assessment/Plan Assessment/Plan Assessment/Plan Arterial bleed - Post op after R colic artery ligation Pt encouraged to use IS and work with PT. TANVIR VELAZQUEZ DO 02/13/20 1635: Subjective Time Seen by a Provider: 12:39 Subjective/Events-last exam Pt seen and examined, denies abdominal pain and also has not had flatus or BM. Nurse states she has been tachycardic and hypertensive. Review of Systems General: Fatigue, Malaise Pulmonary: No Dyspnea, No Cough Cardiovascular: No: Chest Pain, Palpitations Gastrointestinal: Abdominal Pain (very minimal with palpation); No: Nausea, Vomiting Objective Exam General Appearance: No Apparent Distress, Chronically ill Respiratory: Lungs Clear, No Accessory Muscle Use, No Respiratory Distress, Wheezing Cardiovascular: Tachycardia Gastrointestinal: soft, other (incision is clean, dry and intact. abdomen is very mildly firm) Assessment/Plan Assessment/Plan Assessment/Plan S/P Right Colectomy with take back for bleeding Artery Will start home HTN meds, will have RT help with assisted IS, d/c hernandez and have PT and nursing move pt more. Will keep in ICU one more day to monitor HR and BP. Supervisory-Addendum Brief Verification & Attestation Participated in pt care: history, MDM, physical Personally performed: exam, history, MDM Care discussed with: Medical Student Procedures: n/a Verification and Attestation of Medical Student E/M Service A medical student performed and documented this service. I then reviewed and verified all information documented by the medical student and made modifications to such information, when appropriate. I personally performed a physical exam, medical decision making and then discussed any differences between the notes and made revisions as necessary to create one note. Tanvir Velazquez , 02/13/20 , 16:35 LATOSHA HARRY MED STUDENT Feb 13, 2020 11:38 TANVIR VELAZQUEZ DO Feb 13, 2020 16:35
[2020-02-13] MEDS ORDERED: hydrALAZINE (APESOLINE) 20 MG/ML VIAL IV PRN (21:30)
[2020-02-13] MEDS ORDERED: LABETALOL HCL 20 MG/4 ML VIAL IV PRN ×2 (21:30)
--- NOTE | 2020-02-13 22:59 | NUR ---
2259 PATIENT STARTED TO HAVE PAUSES IN HEART RATE 2301 PATIENT HEART RATE DOWN TO 20'S LASTING A COUPLE SECONDS. 2302 THIS RN NOTIFIED [facility] OF PATIENT'S PAUSES AND HR, SPOKE WITH RN BECAUSE DOCTOR WAS UNAVAILABLE. ASKED RN TO HAVE DOCTOR CALL BACK. 2304 STAT EKG TAKEN PER PROTOCOL FOR RHYTHM CHANGE. RHYTHM STRIPS AND EKG SENT TO [facility]. [address] TRIVEDI WITH [facility] OF PATIENT'S STATUS CHANGE, NEW ORDER RECEIVED TO DISCONTINUE ORDERED PRN LABETALOL.
[2020-02-13] MEDS ORDERED: ATROPINE INJ 0.4 MG/ML SDV ONE (23:12)
[2020-02-14] VITALS (26 sets, daily range): BP systolic 125–196; BP diastolic 56–102
[2020-02-14] MEDS: hydrALAZINE (APESOLINE) 20 MG/ML VIAL IV PRN ×2 (02:27→06:34)
--- NOTE | 2020-02-14 02:36 | NUR ---
THIS RN NOTIFIED DR. TRIVEDI WITH [facility] OF PATIENT'S LOW URINE OUTPUT OF 18 ML/HR OVER LAST 4 HOURS. NEW ORDER RECEIVED FOR 500ML BOLUS OF LR AT THIS TIME.
[2020-02-14] MEDS ORDERED: LACTATED RINGERS 500 ML IV ONE (03:00)
[2020-02-14] MEDS: ACETAMINOPHEN 500 MG TAB (TYLENOL) PO SCH (03:49)
[2020-02-14 03:56] LABS: BASOPHILS % (AUTO) 0 % (0-10); EOSINOPHILS % (AUTO) 0 % (0-10); HEMATOCRIT 27 % (35-52); HEMOGLOBIN 8.7 G/DL (11.5-16.0); LYMPHOCYTES # (AUTO) 0.3 X 10^3 (1.0-4.0); LYMPHOCYTES % (AUTO) 5 % (12-44); MEAN CORPUSCULAR HEMOGLOBIN 28 PG (25-34); MEAN CORPUSCULAR HGB CONC 33 G/DL (32-36); MEAN CORPUSCULAR VOLUME 88 FL (80-99); MEAN PLATELET VOLUME 11.4 FL (7.4-10.4); MONOCYTES # (AUTO) 0.4 X 10^3 (0.0-1.0); MONOCYTES % (AUTO) 6 % (0-12); NEUTROPHILS # (AUTO) 6.3 X 10^3 (1.8-7.8); NEUTROPHILS % (AUTO) 90 % (42-75); PLATELET COUNT 81 10^3/uL (130-400); RED CELL DISTRIBUTION WIDTH 16.9 % (10.0-14.5)
[2020-02-14 04:14] LABS: CHLORIDE 106 MMOL/L (98-107); POTASSIUM 3.4 MMOL/L (3.6-5.0); SODIUM 140 MMOL/L (135-145)
[2020-02-14 04:15] LABS: CALCIUM 8.1 MG/DL (8.5-10.1)
[2020-02-14 04:16] LABS: GLUCOSE 142 MG/DL (70-105)
[2020-02-14 04:17] LABS: CARBON DIOXIDE 23 MMOL/L (21-32)
[2020-02-14 04:19] LABS: CREATININE SERUM 0.54 MG/DL (0.60-1.30); GFR ESTIMATED > 60; PHOSPHORUS 2.4 MG/DL (2.3-4.7)
[2020-02-14 04:20] LABS: BUN/CREATININE RATIO 28
[2020-02-14 04:22] LABS: MAGNESIUM 1.6 MG/DL (1.6-2.4)
[2020-02-14] MEDS: MAGNESIUM 1 GM/100 ML IVPB 100 ML IV SCH ×3 (05:16→06:32)
[2020-02-14] MEDS: KCL 20 MEQ TAB (K-DUR) PO SCH (05:16)
[2020-02-14] MEDS: inSUlin ASPART (NovoLOG) 1 UNIT/0.01 ML (CHARGE PER UNIT) SC SCH ×5 (05:16→23:31)
[2020-02-14] MEDS: POTASSIUM CL 10MEQ/50ML IVPB 50 ML IV SCH ×3 (05:17→06:32)
--- NOTE | 2020-02-14 05:28 | NUR ---
THIS RN NOTIFIED DR. TRIVEDI WITH [facility] OF PATIENT'S CONTINUED LOW URINE OUTPUT OF 30ML/HR DESPITE 500ML LR BOLUS. ALSO NOTIFIED OF SERUM POTASSIUM OF 3.4 AND SERUM MAGNESIUM 1.6, UNABLE TO REPLACE PER PROTOCOL. NEW ORDERS RECEIVED AT THIS TIME TO INCREASE MAINTENANCE LR TO 125ML/HR, GIVE 20MEQ POTASSIUM CHLORIDE IV AND 2 GM MAGNESIUM IV, SEE EMAR.
--- NOTE | 2020-02-14 07:29 | NUR ---
THIS RN SENT UPDATE TO DR. VELAZQUEZ OF PATIENT'S STATUS THROUGHOUT THIS SHIFT, SEE PREVIOUS NOTES FOR DETAILS.
--- NOTE | 2020-02-14 07:56 | Progress Note - Surgery ---
LATOSHA HARRY MED STUDENT 02/14/20 0756: Subjective Date Seen by a Provider: Feb 14, 2020 Time Seen by a Provider: 07:45 Subjective/Events-last exam Pt reports no pain this morning and nursing staff informed me of verbal order from Dr. Cuevas to discontinue Fentanyl. Nursing staff also reported pt was lethargic throughout the night. Her hgb is trending downward (8.7 today, 9.6 yesterday) and there is a slight, linear area of ecchymosis in the LLQ. She denies shortness of breath, chest pain, N/V. Pt is quite edematous in both hands. Focused Exam Lactate Level 02/11/20 08:13: Lactic Acid Level 3.73*H 02/12/20 03:24: Lactic Acid Level 0.72 Objective Exam Vital Signs Date Time Temp Pulse Resp B/P (MAP) Pulse Ox O2 Delivery O2 Flow Rate FiO2 02/14/20 06:34 36.7 82 17 171/65 (100) 94 Nasal Cannula 2.00 02/14/20 06:00 36.7 105 19 166/86 (112) 97 Nasal Cannula 2.00 02/14/20 05:00 36.7 79 12 147/71 (96) 97 Nasal Cannula 2.00 02/14/20 04:00 96 Nasal Cannula 2.00 02/14/20 04:00 36.6 95 17 143/72 (95) 98 Nasal Cannula 2.00 02/14/20 03:44 36.5 161/74 (103) 02/14/20 03:00 36.7 98 23 196/89 (124) 96 Nasal Cannula 2.00 02/14/20 02:13 98 Nasal Cannula 2.00 02/14/20 02:00 36.7 85 14 177/97 (123) 93 Nasal Cannula 2.00 02/14/20 01:00 36.8 76 13 128/56 (80) 90 Nasal Cannula 2.00 02/14/20 01:00 81 02/14/20 00:00 37.1 105 18 161/72 (101) 95 Nasal Cannula 2.00 02/14/20 00:00 96 Nasal Cannula 2.00 02/14/20 00:00 36.7 75 17 177/77 (110) 95 Nasal Cannula 2.00 8/15/20 23:00 37.3 67 16 136/67 (90) 91 Nasal Cannula 2.00 02/13/20 22:00 37.1 101 22 151/71 (97) 94 Nasal Cannula 2.00 02/13/20 21:57 97 Nasal Cannula 2.00 02/13/20 21:00 37.1 117 21 168/80 (109) 96 Nasal Cannula 2.00 02/13/20 20:20 37.1 97 13 180/71 (107) 97 Nasal Cannula 2.00 02/13/20 20:00 37.1 98 23 174/91 (118) 96 Nasal Cannula 2.00 02/13/20 20:00 96 Nasal Cannula 2.00 02/13/20 19:00 113 02/13/20 19:00 37.0 101 14 163/74 (103) 92 Nasal Cannula 2.00 02/13/20 18:00 37.0 82 12 140/72 (94) 93 Nasal Cannula 2.00 02/13/20 17:00 37.0 89 13 145/77 (99) 94 Nasal Cannula 2.00 02/13/20 16:00 37.1 87 8 154/63 (93) 93 Nasal Cannula 2.00 02/13/20 15:32 96 Nasal Cannula 2.00 02/13/20 15:13 Nasal Cannula 2.00 02/13/20 15:00 37.0 91 7 166/77 (106) 94 Nasal Cannula 2.00 02/13/20 14:00 36.9 110 11 169/88 (115) 95 Nasal Cannula 2.00 02/13/20 13:00 106 02/13/20 13:00 36.8 99 14 172/76 (108) 92 Nasal Cannula 2.00 02/13/20 12:00 36.8 101 12 157/46 (83) 94 Nasal Cannula 2.00 02/13/20 12:00 96 Nasal Cannula 2.00 02/13/20 11:00 36.7 89 15 128/35 (66) 93 Nasal Cannula 2.00 02/13/20 10:00 36.7 102 16 127/38 (67) 93 Nasal Cannula 2.00 02/13/20 09:00 36.7 113 16 146/46 (79) 97 Nasal Cannula 2.00 02/13/20 08:37 36.8 02/13/20 08:00 36.7 113 14 129/84 (99) 96 Nasal Cannula 2.00 I & O 02/14/20 07:00 Intake Total 2760 ml Output Total 920 ml Balance 1840 ml Capillary Refill : Less Than 3 SecondsLess Than 3 Seconds General Appearance: No Apparent Distress, Chronically ill HEENT: Other (on vent, has some edema in her face) Respiratory: No Accessory Muscle Use, No Respiratory Distress, Wheezing Cardiovascular: No Murmur, Tachycardia (mildly tachy this morning 106 bpm) Gastrointestinal: non tender, other (incision is clean, dry and intact. abdomen is very mildly firm. Slight ecchymosis noted LLQ) Extremity: No Calf Tenderness Neurologic/Psychiatric: Alert Results Lab Laboratory Tests 02/13/20 12:51: Glucometer 158H 02/14/20 02:27: Glucometer 130H 02/14/20 03:45: White Blood Count 7.0, Red Blood Count 3.06L, Hemoglobin 8.7L, Hematocrit 27L, Mean Corpuscular Volume 88, Mean Corpuscular Hemoglobin 28, Mean Corpuscular Hemoglobin Concent 33, Red Cell Distribution Width 16.9H, Platelet Count 81L, Mean Platelet Volume 11.4H, Neutrophils (%) (Auto) 90H, Lymphocytes (%) (Auto) 5L, Monocytes (%) (Auto) 6, Eosinophils (%) (Auto) 0, Basophils (%) (Auto) 0, Neutrophils # (Auto) 6.3, Lymphocytes # (Auto) 0.3L, Monocytes # (Auto) 0.4, Eosinophils # (Auto) 0.0, Basophils # (Auto) 0.0, Sodium Level 140, Potassium L evel 3.4L, Chloride Level 106, Carbon Dioxide Level 23, Anion Gap 11, Blood Urea Nitrogen 15, Creatinine 0.54L, Estimat Glomerular Filtration Rate > 60, BUN/Creatinine Ratio 28, Glucose Level 142H, Calcium Level 8.1L, Phosphorus Level 2.4, Magnesium Level 1.6 Microbiology 02/11/20 Gram Stain - Final, Complete 02/11/20 Sputum Culture - Final, Complete Usual upper respiratory duncan 02/10/20 Urine Culture - Final, Complete NO GROWTH 02/10/20 Blood Culture - Preliminary, Resulted No growth Assessment/Plan Assessment/Plan Assessment/Plan S/P Right Colectomy with take back for bleeding Artery TANVIR CUEVAS DO 02/14/20 1217: Subjective Time Seen by a Provider: 09:46 Subjective/Events-last exam Pt seen and examined, events of last night noted. Pt denies flatus or BM. Review of Systems Pulmonary: No Dyspnea, No Cough Cardiovascular: No: Chest Pain, Palpitations Gastrointestinal: No: Nausea, Vomiting Objective Exam General Appearance: No Apparent Distress Respiratory: No Accessory Muscle Use, No Respiratory Distress, Wheezing Cardiovascular: No Murmur, Tachycardia (mildly tachy this morning 106 bpm) Gastrointestinal: non tender, other (incision is clean, dry and intact. abdomen is very mildly firm. Slight ecchymosis noted LLQ) Neurologic/Psychiatric: Alert Assessment/Plan Assessment/Plan Assessment/Plan S/P R Colectomy D/C ngt, D/C hernandez, start clears, decrease IV rate. Cardiology consult Supervisory-Addendum Brief Verification & Attestation Participated in pt care: history, MDM, physical Personally performed: exam, history, MDM Care discussed with: Medical Student Procedures: n/a Verification and Attestation of Medical Student E/M Service A medical student performed and documented this service. I then reviewed and verified all information documented by the medical student and made modifications to such information, when appropriate. I personally performed a physical exam, medical decision making and then discussed any differences between the notes and made revisions as necessary to create one note. Tanvir Cuevas , 02/14/20 , 12:17 LATOSHA HARRY MED STUDENT Feb 14, 2020 07:56 TANVIR CUEVAS DO Feb 14, 2020 12:17
--- NOTE | 2020-02-14 08:09 | Diagnostic Imaging Report ---
INDICATION: Dyspnea. Comparison is made with prior examination from 02/13/2020. FINDINGS: The heart size is normal. There is venous congestion. There are bibasilar infiltrates. There are bilateral pleural effusions. There is no pneumothorax. The lines and tubes are in satisfactory position. IMPRESSION: Bibasilar pulmonary infiltrates and bilateral pleural effusions. Moderate central pulmonary venous congestion. Dictated by: Dictated on workstation # [id number]
[2020-02-14] MEDS: HYDROcodone/APAP 5 MG/325 MG (LORTAB) TAB PO PRN ×3 (08:57→23:08)
[2020-02-14] MEDS: lisINopril 5 MG (PRINIVIL) TABLET NG SCH (08:57)
[2020-02-14] MEDS: PANTOPRAZOLE 40 MG (PROTONIX) VIAL IVP SCH (08:57)
[2020-02-14] MEDS: LACTATED RINGERS 1,000 ML IV SCH ×2 (10:45→18:14)
--- NOTE | 2020-02-14 15:13 | Consultation-Cardiology ---
HPI-Cardiology Cardiology Consultation: Date of Consultation 02/14/20 Date of Admission Attending Physician Tanvir Cuevas DO Admitting Physician Jose Manuel Patel MD Consulting Physician Phillip CHRISTIE MD HPI: Time Seen by a Provider: 13:30 Chief Complaint: Bradycardia This is a 64-year-old lady with history of colon cancer, , hypertension and diabetes. She underwent colon surgery with Dr. Cuevas couple of days ago. Unfortunately the patient had arterial bleed, requiring reoperation. Patient has been doing fine however has had sinus tachycardia and hypertension. IV labetalol was given, following which patient had bradycardia and pauses. Cardiology is consulted. Patient denies active smoking. Pertinent family history is negative. She denies any chest pain or shortness of breath. She denies any significant past cardiac history. Review of Systems-Cardiology Review of Systems Constitutional: As described under HPI; No As described under HPI, No no symptoms reported, No chills, No fever, No lightheadedness Eyes: No As described under HPI, No no symptoms reported, No blindness, No blurred vision, No contact lenses, No drainage, No decreased acuity, No foreign body sensation, No pain, No vision change Ears/Nose/Throat: No As described under HPI, No no symptoms reported, No chronic hearing loss, No ear discharge, No ear pain, No nasal drainage, No ulcerations Respiratory: No no symptoms reported; As described under HPI; No As described under HPI, No cough, No orthopnea, No shortness of breath, No SOB with excertion Cardiovascular: No no symptoms reported; As described under HPI; No As described under HPI, No chest pain, No edema, No irregular heart rate, No lightheadedness, No palpitations Gastrointestinal: No no symptoms reported; As described under HPI; No abdomen distended; abdominal pain; No blood streaked bowels, No constipation, No diarrhea, No nausea, No vomiting, No stool coloration changes Genitourinary: No As described under HPI, No burning, No dysuria, No discharge, No frequency, No flank pain, No hematuria, No urgency : Yes : No Skin: No rash, No skin related problems, No ulcerations Psychiatric/Neurological: No anxiety, No depression, No seizure, No focal weakness, No syncope Hematologic: No bleeding abnormalities DCN-Xxvzgf-Iozkmz Hx Patient Social History Alcohol Use: Denies Use Recreational Drug Use: No Smoking Status: Never a Smoker 2nd Hand Smoke Exposure: No Recent Foreign Travel: No Recent Infectious Disease Expo: No Physical Abuse Screen: No Sexual Abuse: No Immunizations Up To Date Tetanus Booster (TDap): Unknown Date of Pneumonia Vaccine: Apr 05, 2014 Date of Influenza Vaccine: Apr 06, 2019 Past Medical History PMH As described under Assessment. Allergies and Home Medications Allergies Coded Allergies: No Known Drug Allergies (Unverified , 02/08/20) Home Medications Lisinopril 2.5 Mg Tablet, 2.5 MG PO DAILY, (Reported) Metformin HCl 1,000 Mg Tablet, 1,000 MG PO BID, (Reported) Patient Home Medication List Home Medication List Reviewed: Yes Physical Exam-Cardiology Physical Exam Vital Signs/I&O 02/14/20 02/14/20 02/14/20 02/14/20 03:44 04:00 04:00 05:00 Temp 36.5 36.6 36.7 Pulse 95 79 Resp 17 12 B/P (MAP) 161/74 (103) 143/72 (95) 147/71 (96) Pulse Ox 98 96 97 O2 Delivery Nasal Cannula Nasal Cannula Nasal Cannula O2 Flow Rate 2.00 2.00 2.00 02/14/20 02/14/20 02/14/20 02/14/20 06:00 06:34 07:00 07:01 Temp 36.7 36.7 36.7 Pulse 105 82 108 90 Resp 19 17 15 B/P (MAP) 166/86 (112) 171/65 (100) 162/76 (104) Pulse Ox 97 94 96 O2 Delivery Nasal Cannula Nasal Cannula Nasal Cannula O2 Flow Rate 2.00 2.00 2.00 02/14/20 02/14/20 02/14/20 02/14/20 08:00 08:12 08:18 09:00 Temp 36.7 36.8 Pulse 93 115 Resp 18 25 B/P (MAP) 159/69 (99) 168/66 (100) Pulse Ox 95 95 94 95 O2 Delivery Room Air Room Air Room Air Room Air 02/14/20 02/14/20 02/14/20 02/14/20 10:00 11:00 11:09 12:00 Temp 37.0 36.9 Pulse 89 76 Resp 21 15 B/P (MAP) 155/68 (97) 154/73 (100) Pulse Ox 95 92 94 94 O2 Delivery Room Air Room Air Room Air Room Air 02/14/20 02/14/20 02/14/20 02/14/20 12:00 13:00 13:00 15:00 Temp 36.7 36.7 Pulse 91 102 70 86 Resp 17 17 15 B/P (MAP) 147/73 (97) 155/72 (99) 163/89 (113) Pulse Ox 92 94 96 O2 Delivery Room Air Room Air Room Air 02/14/20 00:00 Intake Total 1000 ml Output Total 525 ml Balance 475 ml Capillary Refill : Less Than 3 SecondsLess Than 3 Seconds Constitutional: appears stated age; No apparent distress; well-developed, well- nourished HEENT: PERRL; No discharge; hearing is well preserved, oral hygience is good; No ulceration, No xanthelasmas are seen Neck: No carotid bruit; carotid pulses are 2 + bilaterally Respiratory: chest is bilaterally symmetric, lungs clear to auscultation Cardiovascular: regular rate-rhythm, S1 and S2; No diastolic murmur, No systolic murmur Gastrointestinal: soft, audible bowel sounds; No spleenomegaly; other (recent surgery.) Rectal: deferred Extremities: normal range of motion, non-tender, normal inspection; No clubbing , No cyanosis; no lower extremity edema bilateral; No significant edema Neurologic/Psychiatric: no motor/sensory deficits, alert, normal mood/affect, oriented x 3, power is 5/5 both on sides Skin: normal color, warm/dry; No rash, No ulcerations Data Review Labs Laboratory Tests 02/14/20 02:27: Glucometer 130H 02/14/20 03:45: White Blood Count 7.0, Red Blood Count 3.06L, Hemoglobin 8.7L, Hematocrit 27L, Mean Corpuscular Volume 88, Mean Corpuscular Hemoglobin 28, Mean Corpuscular Hemoglobin Concent 33, Red Cell Distribution Width 16.9H, Platelet Count 81L, Mean Platelet Volume 11.4H, Neutrophils (%) (Auto) 90H, Lymphocytes (%) (Auto) 5L, Monocytes (%) (Auto) 6, Eosinophils (%) (Auto) 0, Basophils (%) (Auto) 0, Neutrophils # (Auto) 6.3, Lymphocytes # (Auto) 0.3L, Monocytes # (Auto) 0.4, Eosinophils # (Auto) 0.0, Basophils # (Auto) 0.0, Sodium Level 140, Potassium Level 3.4L, Chloride Level 106, Carbon Dioxide Level 23, Anion Gap 11, Blood Urea Nitrogen 15, Creatinine 0.54L, Estimat Glomerular Filtration Rate > 60, BUN/Creatinine Ratio 28, Glucose Level 142H, Calcium Level 8.1L, Phosphorus Level 2.4, Magnesium Level 1.6 02/14/20 11:34: Glucometer 138H Microbiology 02/11/20 Gram Stain - Final, Complete 02/11/20 Sputum Culture - Final, Complete Usual upper respiratory duncan 02/10/20 Urine Culture - Final, Complete NO GROWTH 02/10/20 Blood Culture - Preliminary, Resulted No growth ECG Impression ECG Initial ECG Rhythm: S.Tach A/P-Cardiology Assessment/Admission Diagnosis History of colon cancer, Colon cancer surgery, Abdominal bleeding, resolved. Sinus tachycardia, Hypertension, Diabetes, Second degree heart block Plan History of colon cancer, status post cancer surgery. Defer to the primary team. Abdominal bleeding, resolved. Hemoglobin 8.6. Patient is recovering well. Sinus tachycardia, heart rate now much better. Likely due to post-abdominal surgery and anemia. No medication is required. Hypertension, agree with direct vasodilators including hydralazine. Diabetes, deferred to the primary team. Second degree heart block. I have reviewed all the telemetry strips. Patient has had blocked PACs and second-degree heart block. However it is unclear whether it is Mobitz type I or Mobitz type II since the QRS is narrow and the TN is not prolonged. However this was immediately after IV labetalol was given. Significant resolution since no further IV labetalol has been given. We will avoid beta blockers. Patient may require an event monitor on discharge. Continue telemetry. I will request an echocardiogram. Control blood pressure with other agents including direct vasodilators and avoid calcium channel blockers and beta blockers. Discussed at length with the nursing staff. Thank you for your consultation. Please call me if you have any questions. Shankar Christie MD, FACP, FACC, FSCAI, FHRS, CCDS Interventional Cardiology Cardiac Electrophysiology Vascular Medicine and Endovascular Interventions Phillip CHRISTIE MD Feb 14, 2020 15:13
[2020-02-14] MEDS: ONDANSETRON 4 MG/2 ML (SDV) Z0FRAN IVP PRN (18:15)
[2020-02-15] VITALS (17 sets, daily range): BP systolic 123–176; BP diastolic 64–104
[2020-02-15] MEDS: LACTATED RINGERS 1,000 ML IV SCH ×2 (02:00→09:52)
[2020-02-15 02:16] LABS: BASOPHILS % (AUTO) 0 % (0-10); EOSINOPHILS # (AUTO) 0.1 10^3/uL (0.0-0.3); EOSINOPHILS % (AUTO) 1 % (0-10); HEMATOCRIT 26 % (35-52); HEMOGLOBIN 8.3 G/DL (11.5-16.0); LYMPHOCYTES # (AUTO) 0.5 X 10^3 (1.0-4.0); LYMPHOCYTES % (AUTO) 8 % (12-44); MEAN CORPUSCULAR HEMOGLOBIN 28 PG (25-34); MEAN CORPUSCULAR HGB CONC 32 G/DL (32-36); MEAN CORPUSCULAR VOLUME 88 FL (80-99); MEAN PLATELET VOLUME 10.7 FL (7.4-10.4); MONOCYTES # (AUTO) 0.4 X 10^3 (0.0-1.0); MONOCYTES % (AUTO) 7 % (0-12); NEUTROPHILS # (AUTO) 5.3 X 10^3 (1.8-7.8); NEUTROPHILS % (AUTO) 84 % (42-75); PLATELET COUNT 116 10^3/uL (130-400); WHITE BLOOD COUNT 6.3 10^3/uL (4.3-11.0)
[2020-02-15 02:23] LABS: CHLORIDE 105 MMOL/L (98-107); POTASSIUM 3.4 MMOL/L (3.6-5.0); SODIUM 140 MMOL/L (135-145)
[2020-02-15 02:24] LABS: CALCIUM 7.9 MG/DL (8.5-10.1); GLUCOSE 103 MG/DL (70-105)
[2020-02-15 02:26] LABS: CARBON DIOXIDE 26 MMOL/L (21-32)
[2020-02-15 02:28] LABS: GFR ESTIMATED > 60; PHOSPHORUS 1.9 MG/DL (2.3-4.7)
[2020-02-15 02:29] LABS: BUN/CREATININE RATIO 22
[2020-02-15 02:31] LABS: MAGNESIUM 1.6 MG/DL (1.6-2.4)
[2020-02-15] MEDS: POTASSIUM CL 10MEQ/50ML IVPB 50 ML IV SCH ×3 (05:05→06:14)
[2020-02-15] MEDS: inSUlin ASPART (NovoLOG) 1 UNIT/0.01 ML (CHARGE PER UNIT) SC SCH ×2 (05:05→12:10)
[2020-02-15] MEDS: MAGNESIUM 1 GM/100 ML IVPB 100 ML IV SCH ×3 (05:05→06:15)
[2020-02-15] MEDS: KCL 20 MEQ TAB (K-DUR) PO SCH (05:06)
--- NOTE | 2020-02-15 07:25 | Diagnostic Imaging Report ---
Indication: Shortness of breath. Comparison: 02/14/2020 Findings: Single view of the chest demonstrates stable bilateral pleural effusions. There are unchanged bilateral pulmonary infiltrates. The right IJ catheter stable. Heart remains enlarged. There is no pneumothorax. The enteric tube has been removed. Impression: Unchanged aeration of lungs. Dictated by: Dictated on workstation # [id number]
--- NOTE | 2020-02-15 07:26 | NUR ---
110 mls of fentanyl drip wasted, witnessed by NAYELI Spence.
[2020-02-15] MEDS: PANTOPRAZOLE 40 MG (PROTONIX) VIAL IVP SCH (08:32)
[2020-02-15] MEDS: lisINopril 5 MG (PRINIVIL) TABLET NG SCH (08:32)
--- NOTE | 2020-02-15 08:48 | Physician Query Clarification ---
PQ-Further Specificity Admission/Discharge Admission Date: Feb 10, 2020 at 09:45 Discharge Date: The medical record reflects the following clinical scenario: History/Risk Factors: Hemoperitoneum Bleeding right colic artery;failure of ligature Clinical Findings: 2000ml blood in abdomen, 50ml blood during surgery. Hgb 4.5. Treatment: Blood transfusions x 4. Question: Can you further specify type of anemia per the clinical indicators above? Please document a response in the Progress Notes or Discharge Summary. 1. Acute blood loss anemia.(Postoperative) 2. Anemia, unspecified. 3. Other, with explanation of the clinical findings. 4. Clinically undetermined, no explanation for the clinical findings. PHYSICIAN RESPONSE Can you specify per above: 1 (Found what I assume was the Right Colic Artery, freely bleeding, appeared ligasure had failed on its own or possibly in combination with severe hypertension) Please remember a lack of response to the above will prompt a phone page by CDI/Coding staff. In responding to this query, please exercise your independent professional judgment. The purpose of this communication is to more accurately reflect the complexity of your patients condition. The fact that a question is asked does not imply that any particular answer is desired or expected. Thank you for your timely response to this clarification. Requestors name: Nilda Rasheed [facility] Phone # ext [phone] or [phone] THIS PHYSICIAN QUERY FORM IS A PERMANENT PART OF THE MEDICAL RECORD NILDA RASHEED Feb 15, 2020 08:48 ALEJANDRO VELAZQUEZ DO Feb 15, 2020 14:51
--- NOTE | 2020-02-15 09:26 | NUR ---
ATTEMPTED TO CALL PT'S TO PROVIDE UPDATE. NO ANSWER FROM PT'S , THIS RN WILL ATTEMPT AGAIN LATER.
--- NOTE | 2020-02-15 10:17 | Physical Therapy Daily Note ---
PT Daily Note-Current Subjective Patient in bed and requested commode use. Mental Status Patient Orientation: Person, Time, Situation Attachments: Oxygen, IV Transfers SCALE: Activities may be completed with or without assistive devices. 0-Thztkbeahn-dpkvlxg completes the activity by him/herself with no assistance from a helper. 5-Set-up or Clean-up Assistance-helper sets up or cleans up; patient completes activity. [place] assists only prior to or following the activity. 4-Supervision or Touching Assistance-helper provides verbal cues and/or touching/steadying and/or contact guard assistance as patient completes activity. Assistance may be provided throughout the activity or intermittently. 3-Partial/Moderate Assistance-helper does LESS THAN HALF the effort. [place] lifts, holds or supports trunk or limbs, but provides less than half the effort. 2-Substantial/Maximal Assistance-helper does MORE THAN HALF the effort. [place] lifts or holds trunk or limbs and provides more than half the effort. 2-Otugzljny-ictlvs does ALL the effort. Patient does none of the effort to complete the activity. Or, the assistance of 2 or more helpers is required for the patient to complete the activity. If activity was not attempted, code reason: 7-Patient Refused. 9-Not Applicable-not attempted and the patient did not perform the activity before the current illness, exacerbation or injury. 10-Not Attempted due to Environmental Limitations-(lack of equipment, weather restraints, etc.). 88-Not Attempted due to Medical Conditions or Safety Concerns. Roll Left & Right (QC): 3 Lying to Sitting/Side of Bed(Q: 3 Sit to Stand (QC): 2 Chair/Srq-un-Estok Xfer(QC): 2 Toilet Transfer (QC): 2 Patient requires max assistance to sit to stand and SPT bed to commode to recliner Gait Training Does the Patient Walk?: No and Walking Goal IS indicated Exercises Seated Therapy Exercises: Ankle pumps, Long arc quads, Hip flexion Seated Reps: 12 Assessment Patient requires encouragement to actively participate with therapy. Patient tolerates minimal activity at this time. PT Records And Information Manager Goals Records And Information Manager Goals PT [facility] Goals Time Frame: Feb 19, 2020 Sit to Lying (QC): 6 Lying-Sitting on Side/Bed(QC): 6 Sit to Stand (QC): 6 Walk 150 ft (QC): 6 PT Plan Treatment/Plan Treatment Plan: Continue Plan of Care Treatment Plan: Bed Mobility, Education, Functional Activity Tatiana, Functional Strength, Gait, Safety, Therapeutic Exercise, Transfers Treatment Duration: Feb 19, 2020 Frequency: 6 times per week Estimated Hrs Per Day: .25 hour per day Patient and/or Family Agrees t: Yes Time/GCodes Time In: 824 Time Out: 850 Total Billed Treatment Time: 26 Total Billed Treatment 1 visit FA 17 min EX 9 min CORAL DORAN PT Feb 15, 2020 10:17
--- NOTE | 2020-02-15 13:23 | Occupational Ther Daily Note ---
OT Current Status-Daily Note Subjective Pt seated upright in recliner, stating she is finished with lunch. Pt declines having any pain. Pain Numeric Pain Scale: 0-No Pain Mental Status/Objective Attachments: IV, Oxygen ADL-Treatment Therapy Code Descriptions/Definitions Functional [place] Measure: 0=Not Assessed/NA 4=Minimal Assistance 1=Total Assistance 5=Supervision or Setup 2=Maximal Assistance 6=Modified [place] 3=Moderate Assistance 7=Complete IndependenceSCALE: Activities may be completed with or without assistive devices. 4-Asdyllacww-gqzbigb completes the activity by him/herself with no assistance from a helper. 5-Set-up or Clean-up Assistance-helper sets up or cleans up; patient completes activity. [place] assists only prior to or following the activity. 4-Supervision or Touching Assistance-helper provides verbal cues and/or touching/steadying and/or contact guard assistance as patient completes activity. Assistance may be provided throughout the activity or intermittently. 3-Partial/Moderate Assistance-helper does LESS THAN HALF the effort. [place] lifts, holds or supports trunk or limbs, but provides less than half the effort. 2-Substantial/Maximal Assistance-helper does MORE THAN HALF the effort. [place] lifts or holds trunk or limbs and provides more than half the effort. 8-Dckrcgibl-oycbmx does ALL the effort. Patient does none of the effort to complete the activity. Or, the assistance of 2 or more helpers is required for the patient to complete the activity. If activity was not attempted, code reason: 7-Patient Refused. 9-Not Applicable-not attempted and the patient did not perform the activity before the current illness, exacerbation or injury. 10-Not Attempted due to Environmental Limitations-(lack of equipment, weather restraints, etc.). 88-Not Attempted due to Medical Conditions or Safety Concerns. Other Treatment Pt finished with liquid diet. States she does not want anything else from her tray. OT placed tray out of pt's way. Pt agreeable to getting cleaned up after lunch, OT noticed pt had spilled on her gown and had some liquid around her mouth. OT provided pt with wet washcloth, pt able to wash her face, OT provided min A in order to clean up lunch from around pt's lips. OT then provided pt with hospital gown, providing moderate assistance with doffing/donning gown due to managing around wires. Pt able to lift arms off of chair for OT to snap sleeves of gown, and pt able to use arms to pull herself forward so OT can tie gown behind pt's neck. Pt declines other ADLs on this date. Post OT Tx, pt seated in recliner, call light in reach and all needs met. Education OT Patient Education: Correct positioning, Energy conservation, Modified ADL techniques, Progress toward Goal/Update tx plan, Purpose of tx/functional activities Teaching Recipient: Patient Teaching Methods: Discussion Response to Teaching: Verbalize Understanding OT Retirement Goals Dispatch Coordinator Goals Time Frame: Feb 19, 2020 Eating (QC): 6 Oral Hygiene (QC): 5 Toileting Hygiene (QC): 5 Shower/Bathe Self (QC): 5 Upper Body Dressing (QC): 5 Lower Body Dressing (QC): 5 On/Off Footwear (QC): 5 Additional Goals: 1-Demonstrate ADL Tasks, 2-Verbalize Understanding, 3- ImproveStrength/Tatiana 1=Demonstrate adherence to instructed precautions during ADL tasks. 2=Patient will verbalize/demonstrate understanding of assistive devices/modifications for ADL. 3=Patient will improve strength/tolerance for activity to enable patient to perform ADL's. OT Education/Plan Problem List/Assessment Assessment: Decreased Activ Tolerance, Decreased UE Strength, Impaired I ADL's, Impaired Self-Care Skills Pt would benefit from skilled OT to increase her independence in basic self care to allow her to safely return home Discharge Recommendations Plan/Recommendations: Continue POC Treatment Plan/Plan of Care Patient would benefit from OT for education, treatment and training to promote independence in ADL's, mobility, safety and/or upper extremity function for ADL's. Plan of Care: ADL Retraining, Functional Mobility, UE Funct Exercise/Act, UE Neuromus Re-Ed/Coord Treatment Duration: Feb 19, 2020 Frequency: 5 times per week Estimated Hrs Per Day: .25 hour per day Agreement: Yes Rehab Potential: Fair Time/GCodes Start Time: 13:00 Stop Time: 13:12 Total Time Billed (hr/min): 12 Billed Treatment Time 1, ADL SURAJ MATIAS OT Feb 15, 2020 13:23
--- NOTE | 2020-02-15 14:37 | Progress Note - Surgery ---
Subjective Time Seen by a Provider: 11:54 Subjective/Events-last exam Pt seen and examined, denies abdominal pain and states she had BM last night and has passed gas 4-5 times today. Review of Systems General: No Chills; Fatigue Pulmonary: No Dyspnea, No Cough Cardiovascular: No: Chest Pain, Palpitations Gastrointestinal: No: Nausea, Vomiting Objective Exam Vital Signs Date Time Temp Pulse Resp B/P (MAP) Pulse Ox O2 Delivery O2 Flow Rate FiO2 02/15/20 14:00 106 17 157/81 (106) 96 Nasal Cannula 2.00 02/15/20 13:00 104 18 162/78 (106) 96 Nasal Cannula 2.00 02/15/20 13:00 98 02/15/20 12:00 98 20 161/86 (111) 97 Nasal Cannula 2.00 02/15/20 11:56 Nasal Cannula 2.00 02/15/20 11:55 36.8 02/15/20 11:00 105 13 157/72 (100) 97 Nasal Cannula 2.00 02/15/20 10:00 104 23 172/95 (120) 98 Nasal Cannula 2.00 02/15/20 09:55 97 Nasal Cannula 2.00 02/15/20 09:00 91 14 166/86 (112) 95 Nasal Cannula 2.00 02/15/20 08:00 86 12 154/78 (103) 95 Nasal Cannula 2.00 02/15/20 07:35 36.8 02/15/20 07:35 Nasal Cannula 2.00 02/15/20 07:00 109 24 166/104 (124) 95 Nasal Cannula 2.00 02/15/20 07:00 109 02/15/20 06:00 80 9 126/64 (84) 98 Nasal Cannula 2.00 02/15/20 05:00 77 8 123/64 (83) 98 Nasal Cannula 2.00 02/15/20 04:00 Nasal Cannula 2.00 02/15/20 04:00 36.8 102 18 164/78 (106) 93 Nasal Cannula 2.00 02/15/20 03:23 98 Nasal Cannula 2.00 02/15/20 03:02 86 11 146/82 (103) 97 Nasal Cannula 2.00 02/15/20 02:00 81 12 151/64 (93) 99 Nasal Cannula 2.00 8/17/20 01:00 89 9 151/75 (100) 98 Nasal Cannula 2.00 02/15/20 00:31 97 02/15/20 00:22 Nasal Cannula 2.00 02/15/20 00:00 37.0 96 13 140/73 (95) 98 Nasal Cannula 2.00 02/14/20 23:48 96 Nasal Cannula 2.00 02/14/20 23:00 85 13 145/75 (98) 99 Nasal Cannula 2.00 02/14/20 22:11 98 Nasal Cannula 2.00 02/14/20 22:00 80 10 125/61 (82) 98 Nasal Cannula 2.00 02/14/20 21:01 81 11 134/73 (93) 99 Nasal Cannula 2.00 02/14/20 20:00 108 14 150/73 (98) 98 Nasal Cannula 2.00 02/14/20 19:52 Nasal Cannula 2.00 02/14/20 19:38 37.2 94 16 133/80 (97) 98 Nasal Cannula 2.00 02/14/20 19:00 90 02/14/20 19:00 85 16 150/78 (102) 93 Nasal Cannula 2.00 02/14/20 18:47 94 Nasal Cannula 2.00 02/14/20 18:43 Nasal Cannula 2.00 02/14/20 18:00 100 12 144/102 (116) 94 Room Air 02/14/20 17:00 73 16 160/80 (106) 94 Room Air 02/14/20 16:00 94 Room Air 02/14/20 16:00 89 18 152/98 (116) 95 Room Air 02/14/20 15:00 86 15 163/89 (113) 96 Room Air I & O 02/15/20 07:00 Intake Total 1780 ml Output Total 600 ml Balance 1180 ml Capillary Refill : Less Than 3 SecondsLess Than 3 Seconds General Appearance: No Apparent Distress HEENT: Other (on vent, has some edema in her face) Respiratory: No Accessory Muscle Use, No Respiratory Distress, Decreased Breath Sounds (at bases) Cardiovascular: No Murmur, Tachycardia (mildly tachy this morning 106 bpm) Gastrointestinal: non tender, other (incision is clean, dry and intact. abdomen is very mildly firm in LQ's ) Extremity: No Calf Tenderness Results Lab Laboratory Tests 02/14/20 18:07: Glucometer 121H 02/14/20 23:29: Glucometer 111H 02/15/20 02:02: White Blood Count 6.3, Red Blood Count 2.95L, Hemoglobin 8.3L, Hematocrit 26L, Mean Corpuscular Volume 88, Mean Corpuscular Hemoglobin 28, Mean Corpuscular Hemoglobin Concent 32, Red Cell Distribution Width 16.0H, Platelet Count 116L, Mean Platelet Volume 10.7H, Neutrophils (%) (Auto) 84H, Lymphocytes (%) (Auto) 8L, Monocytes (%) (Auto) 7, Eosinophils (%) (Auto) 1, Basophils (%) (Auto) 0, Neutrophils # (Auto) 5.3, Lymphocytes # (Auto) 0.5L, Monocytes # (Auto) 0.4, Eosinophils # (Auto) 0.1, Basophils # (Auto) 0.0, Sodium Level 140, Potassium Level 3.4L, Chloride Level 105, Carbon Dioxide Level 26, Anion Gap 9, Blood Urea Nitrogen 11, Creatinine 0.50L, Estimat Glomerular Filtration Rate > 60, BUN/Creatinine Ratio 22, Glucose Level 103, Calcium Level 7.9L, Phosphorus Level 1.9L, Magnesium Level 1.6 02/15/20 12:05: Glucometer 109 Microbiology 02/11/20 Gram Stain - Final, Complete 02/11/20 Sputum Culture - Final, Complete Usual upper respiratory [place] 02/10/20 Urine Culture - Final, Complete NO GROWTH 02/10/20 Blood Culture - Preliminary, Resulted No growth Assessment/Plan Assessment/Plan Assessment/Plan S/P R Colectomy Will increase to soft diet, encourage ambulation and IS use. Appreciate cardiology input, will transfer down to 4th floor with telemetry. ALEJANDRO VELAZQUEZ DO Feb 15, 2020 14:37
--- NOTE | 2020-02-15 15:05 | NUR ---
PT TRANSFERRED TO MED/SURG 4TH FLOOR VIA WHEELCHAIR WITH THIS RN AND BUZZ DECKER. PT ARRIVED TO RM [id number] WITHOUT INCIDENT AND WITH RT TRIPLE LUMEN IJ INTACT WITH LR RUNNING AT 125ML/HR. PT ASSISTED TO PT BED BY THIS RN AND BUZZ DECKER WITH BEDRAILS UP X4 FOR PT SAFETY AND TO ACCESS BED CONTROLS.
--- NOTE | 2020-02-15 15:10 | NUR ---
REPORT GIVEN TO NAYELI VIDES.
--- NOTE | 2020-02-15 15:23 | NUR ---
"RD ASSESSMENT PMHx: CA(colon); HTN; DM PT INTERACTION: Pt was awake and pleasant during nutrition assessment. Pt states current appetite is okay. Note avg PO intake 50% x1d, per chart review. Pt states following a regular diet at home, and has no issues with chewing/swallowing food. Note pt has poor dentition, per visual assessment. Pt states no recent issues with nausea, vomiting, constipation, or diarrhea. Note last BM was 02/14, and pt not currently on bowel regimen per chart review. Pt states no recent wt changes. Note recent 21# wt gain x2mon, per chart review. Pt states current DM management is pretty good. Note unable to determine recent HbA1c, per chart review. ABNORMAL NUTRITION-RELATED LAB VALUES LOW: K 3.4; cr 0.50; Ca7.9; phos 2.0 HIGH: Est. kcal needs: 1525 kcal | 25 kcal/kg Est. Pro needs: 73 g Pro | 1.2 g Pro/kg PES STATEMENT: Inadequate oral intake (NI-2.1) related to loss of appetite as evidenced by pt interview | avg PO intake 50% 1d INTERVENTION: Continue with current diet order of Clear Liquid diet. Would recommend diet advancement when medically able and as tolerated. Pt may benefit from nutrition supplementation if PO intake declines. Offered diet education on DM management, but pt declined at this time. Will attempt to offer again prior to discharge. Will continue to follow and reassess as pt needs, intake, and status change. MONITOR/EVALUATE: PO Intake; Plan of Care; Hydration Status; Weight Status; Lab Values Lianna Box, MS, RD, LD"
--- NOTE | 2020-02-15 16:17 | Cardiology Progress Note ---
Cardiology SOAP Progress Note Subjective: No cardiac complaints. Objective: I&O/Vital Signs 02/15/20 02/15/20 02/15/20 02/15/20 05:00 06:00 07:00 07:00 Pulse 77 80 109 109 Resp 8 9 24 B/P (MAP) 123/64 (83) 126/64 (84) 166/104 (124) Pulse Ox 98 98 95 O2 Delivery Nasal Cannula Nasal Cannula Nasal Cannula O2 Flow Rate 2.00 2.00 2.00 02/15/20 02/15/20 02/15/20 02/15/20 07:35 07:35 08:00 09:00 Temp 36.8 Pulse 86 91 Resp 12 14 B/P (MAP) 154/78 (103) 166/86 (112) Pulse Ox 95 95 O2 Delivery Nasal Cannula Nasal Cannula Nasal Cannula O2 Flow Rate 2.00 2.00 2.00 02/15/20 02/15/20 02/15/20 02/15/20 09:55 10:00 11:00 11:55 Temp 36.8 Pulse 104 105 Resp 23 13 B/P (MAP) 172/95 (120) 157/72 (100) Pulse Ox 97 98 97 O2 Delivery Nasal Cannula Nasal Cannula Nasal Cannula O2 Flow Rate 2.00 2.00 2.00 02/15/20 02/15/20 02/15/20 02/15/20 11:56 12:00 13:00 13:00 Pulse 98 98 104 Resp 20 18 B/P (MAP) 161/86 (111) 162/78 (106) Pulse Ox 97 96 O2 Delivery Nasal Cannula Nasal Cannula Nasal Cannula O2 Flow Rate 2.00 2.00 2.00 02/15/20 02/15/20 02/15/20 02/15/20 14:00 14:43 14:50 15:34 Temp 37.2 Pulse 106 108 Resp 17 18 B/P (MAP) 157/81 (106) 176/79 (111) Pulse Ox 96 96 92 O2 Delivery Nasal Cannula Nasal Cannula Room Air Room Air O2 Flow Rate 2.00 1.00 02/15/20 00:00 Intake Total 280 ml Output Total 125 ml Balance 155 ml Constitutional: appears stated age; No apparent distress; well-developed, well- nourished Respiratory: chest is bilaterally symmetric, lungs clear to auscultation Cardiovascular: regular rate-rhythm, S1 and S2; No diastolic murmur, No systolic murmur Gastrointestional: soft, audible bowel sounds; No spleenomegaly; other (recent surgery.) Extremities: normal range of motion, non-tender, normal inspection; No clubbi ng, No cyanosis; no lower extremity edema bilateral; No significant edema Neurologic/Psychiatric: no motor/sensory deficits, alert, normal mood/affect, oriented x 3, power is 5/5 both on sides Skin: normal color, warm/dry; No rash, No ulcerations Results/Procedures: Labs Laboratory Tests 02/14/20 18:07: Glucometer 121H 02/14/20 23:29: Glucometer 111H 02/15/20 02:02: White Blood Count 6.3, Red Blood Count 2.95L, Hemoglobin 8.3L, Hematocrit 26L, Mean Corpuscular Volume 88, Mean Corpuscular Hemoglobin 28, Mean Corpuscular Hemoglobin Concent 32, Red Cell Distribution Width 16.0H, Platelet Count 116L, Mean Platelet Volume 10.7H, Neutrophils (%) (Auto) 84H, Lymphocytes (%) (Auto) 8L, Monocytes (%) (Auto) 7, Eosinophils (%) (Auto) 1, Basophils (%) (Auto) 0, Neutrophils # (Auto) 5.3, Lymphocytes # (Auto) 0.5L, Monocytes # (Auto) 0.4, Eosinophils # (Auto) 0.1, Basophils # (Auto) 0.0, Sodium Level 140, Potassium Level 3.4L, Chloride Level 105, Carbon Dioxide Level 26, Anion Gap 9, Blood Urea Nitrogen 11, Creatinine 0.50L, Estimat Glomerular Filtration Rate > 60, BUN/Creatinine Ratio 22, Glucose Level 103, Calcium Level 7.9L, Phosphorus Level 1.9L, Magnesium Level 1.6 02/15/20 12:05: Glucometer 109 Microbiology 02/11/20 Gram Stain - Final, Complete 02/11/20 Sputum Culture - Final, Complete Usual upper respiratory [place] 02/10/20 Urine Culture - Final, Complete NO GROWTH 02/10/20 Blood Culture - Preliminary, Resulted No growth A/P: Assessment/Dx: History of colon cancer, Colon cancer surgery, Abdominal bleeding, resolved. Sinus tachycardia, Hypertension, Diabetes, Second degree heart block Plan: History of colon cancer, status post cancer surgery. Defer to the primary team. Abdominal bleeding, resolved. Hemoglobin 8.6. Patient is recovering well. Sinus tachycardia, heart rate now much better. Likely due to post-abdominal surgery and anemia. No medication is required. Hypertension, agree with direct vasodilators including hydralazine. Diabetes, deferred to the primary team. Second degree heart block. I have reviewed all the telemetry strips. Patient has had blocked PACs and second-degree heart block. However it is unclear whether it is Mobitz type I or Mobitz type II since the QRS is narrow and the OR is not prolonged. However this was immediately after IV labetalol was given. Significant resolution since no further IV labetalol has been given. We will avoid beta blockers. Patient may require an event monitor on discharge. Continue telemetry. I will request an echocardiogram. Control blood pressure with other agents including direct vasodilators and avoid calcium channel blockers and beta blockers. Okay to transfer to the fourth floor with telemetry. Thank you for your consultation. Please call me if you have any questions. Shankar Christie MD, FACP, FACC, FSCAI, FHRS, CCDS Interventional Cardiology Cardiac Electrophysiology Vascular Medicine and Endovascular Interventions Phillip CHRISTIE MD Feb 15, 2020 16:17
[2020-02-16] VITALS: BP 150/70
[2020-02-16 04:10] VITALS: BP 153/72
--- NOTE | 2020-02-16 07:42 | Progress Note - Surgery ---
LATOSHA HARRY MED STUDENT 02/16/20 0742: Subjective Date Seen by a Provider: Feb 16, 2020 Time Seen by a Provider: 07:30 Subjective/Events-last exam Ms. Dial was sitting up eating this morning when examined and stated that she feels "much better". She has had 2 bowel movements since last night and is passing gas. Pt has been up and moving and denies any abdominal pain. She reports new onset bilateral lower back pain (rated 8/10) that began this morning when she woke up. Pt requested pain medication from nursing staff. She denies N/V, chest pain, shortness of breath, fever and chills. Objective Exam Vital Signs Date Time Temp Pulse Resp B/P (MAP) Pulse Ox O2 Delivery O2 Flow Rate FiO2 02/16/20 04:10 36.4 84 16 153/72 (99) 95 Room Air 02/16/20 01:00 75 02/16/20 00:00 36.4 94 16 150/70 (96) 93 Room Air 02/15/20 22:13 95 Room Air 02/15/20 20:00 36.7 114 18 133/70 (91) 92 Room Air 02/15/20 19:35 Room Air 02/15/20 19:14 92 Room Air 02/15/20 19:00 118 02/15/20 15:34 37.2 108 18 176/79 (111) 92 Room Air 02/15/20 14:50 Room Air 02/15/20 14:43 96 Nasal Cannula 1.00 02/15/20 14:00 106 17 157/81 (106) 96 Nasal Cannula 2.00 02/15/20 13:00 104 18 162/78 (106) 96 Nasal Cannula 2.00 02/15/20 13:00 98 02/15/20 12:00 98 20 161/86 (111) 97 Nasal Cannula 2.00 02/15/20 11:56 Nasal Cannula 2.00 02/15/20 11:55 36.8 02/15/20 11:00 105 13 157/72 (100) 97 Nasal Cannula 2.00 02/15/20 10:00 104 23 172/95 (120) 98 Nasal Cannula 2.00 02/15/20 09:55 97 Nasal Cannula 2.00 02/15/20 09:00 91 14 166/86 (112) 95 Nasal Cannula 2.00 02/15/20 08:00 86 12 154/78 (103) 95 Nasal Cannula 2.00 I & O 02/16/20 07:00 Intake Total 2255 ml Output Total 1550 ml Balance 705 ml Capillary Refill : Less Than 3 SecondsLess Than 3 Seconds General Appearance: No Apparent Distress HEENT: Other (on vent, has some edema in her face) Respiratory: No Accessory Muscle Use, No Respiratory Distress, Decreased Breath Sounds (at bases) Cardiovascular: Regular Rate, Rhythm, No Gallop, No Murmur, Tachycardia (mildly tachy this morning 106 bpm) Gastrointestinal: non tender Extremity: No Calf Tenderness, Pedal Edema (mild pedal edema) Neurologic/Psychiatric: Alert, Oriented x3, Normal Mood/Affect Results Lab Laboratory Tests 02/15/20 12:05: Glucometer 109 02/15/20 17:54: Glucometer 135H Microbiology 02/11/20 Gram Stain - Final, Complete 02/11/20 Sputum Culture - Final, Complete Usual upper respiratory [place] 02/10/20 Urine Culture - Final, Complete NO GROWTH 02/10/20 Blood Culture - Preliminary, Resulted No growth Assessment/Plan Assessment/Plan Assessment/Plan S/P R Colectomy Continue soft diet, encourage ambulation and IS use. TANVIR CUEVAS DO 02/16/20 1201: Subjective Time Seen by a Provider: 11:35 Subjective/Events-last exam Pt seen and examined, tolerating diet and states she is passing gas and having BM's. Pain controlled with oral meds. She is only worried about the swelling in her hands. Review of Systems Pulmonary: No Dyspnea, No Cough Cardiovascular: No: Chest Pain, Palpitations Gastrointestinal: No: Nausea, Vomiting Objective Exam General Appearance: No Apparent Distress, Chronically ill Respiratory: No Accessory Muscle Use, No Respiratory Distress, Decreased Breath Sounds (at bases) Cardiovascular: Regular Rate, Rhythm, No Murmur Gastrointestinal: non tender, soft, other (incision is c/d/i) Assessment/Plan Assessment/Plan Assessment/Plan Ambulate and use IS. Will have SW assess with PT/OT if she is able to go home or will need some rehab. If she is ok to go home, then may be able to send her home tomorrow. Supervisory-Addendum Brief Verification & Attestation Participated in pt care: history, MDM, physical Personally performed: exam, history, MDM Care discussed with: Medical Student Procedures: n/a Verification and Attestation of Medical Student E/M Service A medical student performed and documented this service. I then reviewed and verified all information documented by the medical student and made modifications to such information, when appropriate. I personally performed a physical exam, medical decision making and then discussed any differences between the notes and made revisions as necessary to create one note. Tanvir Cuevas , 02/16/20 , 12:01 LATOSHA HARRY MED STUDENT Feb 16, 2020 07:42 TANVIR CUEVAS DO Feb 16, 2020 12:01
[2020-02-16 08:00] VITALS: BP 160/79
[2020-02-16] MEDS: lisINopril 5 MG (PRINIVIL) TABLET NG SCH (08:37)
--- NOTE | 2020-02-16 09:39 | NUR ---
CM/SS: Visited with pt as to plan for discharge Plan: Undetermined at this time. Pt is from home Summary: Pt reports that she has been walking more and is feeling better today. 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 Pt reports she has been feeling better. 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 When asked about medical equipment, pt thought she may need a walker as she has been using one here at the hospital. Pt is not quite sure at this time. No specific date of discharge is determined. This worker will follow up.
--- NOTE | 2020-02-16 10:03 | Physical Therapy Daily Note ---
PT Daily Note-Current Subjective Patient agrees to PT. C/o cough Pain Numeric Pain Scale: 5-Moderate Pain Location: Medial, Lower Location Body Site: Abdomen Pain Description: Acute Mental Status Patient Orientation: Person, Time, Situation Transfers SCALE: Activities may be completed with or without assistive devices. 6-Akjytrfeli-jrkdibs completes the activity by him/herself with no assistance from a helper. 5-Set-up or Clean-up Assistance-helper sets up or cleans up; patient completes activity. [place] assists only prior to or following the activity. 4-Supervision or Touching Assistance-helper provides verbal cues and/or touching/steadying and/or contact guard assistance as patient completes activity. Assistance may be provided throughout the activity or intermittently. 3-Partial/Moderate Assistance-helper does LESS THAN HALF the effort. [place] lifts, holds or supports trunk or limbs, but provides less than half the effort. 2-Substantial/Maximal Assistance-helper does MORE THAN HALF the effort. [place] lifts or holds trunk or limbs and provides more than half the effort. 6-Iouhmriog-ftriox does ALL the effort. Patient does none of the effort to complete the activity. Or, the assistance of 2 or more helpers is required for the patient to complete the activity. If activity was not attempted, code reason: 7-Patient Refused. 9-Not Applicable-not attempted and the patient did not perform the activity before the current illness, exacerbation or injury. 10-Not Attempted due to Environmental Limitations-(lack of equipment, weather restraints, etc.). 88-Not Attempted due to Medical Conditions or Safety Concerns. Sit to Stand (QC): 5 Gait Training Does the Patient Walk?: Yes Distance: 75' Walk 10 feet (QC): 4 Walk 50 ft with 2 Turns(QC): 4 Gait Assistive Device: FWW slow, step to gait sequence due to abdominal pain Exercises Seated Therapy Exercises: Ankle pumps, Long arc quads, Hip flexion Seated Reps: 12 (2 sets) Assessment Patient tolerates minimal activity and returned to recliner with warm blanket over abdomen for comfort. PT to increase activity as tolerated by patient. PT Penitentiary Goals Penitentiary Goals PT Penitentiary Goals Time Frame: Feb 19, 2020 Sit to Lying (QC): 6 Lying-Sitting on Side/Bed(QC): 6 Sit to Stand (QC): 6 Walk 150 ft (QC): 6 PT Plan Treatment/Plan Treatment Plan: Continue Plan of Care Treatment Plan: Bed Mobility, Education, Functional Activity Tatiana, Functional Strength, Gait, Safety, Therapeutic Exercise, Transfers Treatment Duration: Feb 19, 2020 Frequency: 6 times per week Estimated Hrs Per Day: .25 hour per day Patient and/or Family Agrees t: Yes Time/GCodes Time In: 841 Time Out: 904 Total Billed Treatment Time: 23 Total Billed Treatment 1 visit GT 15 min EX 8 min CORAL DORAN PT Feb 16, 2020 10:03
[2020-02-16 12:00] VITALS: BP 162/80
[2020-02-16] MEDS ORDERED: CATHETER FLUSH 10 ML SYR IV PRN (14:00)
--- NOTE | 2020-02-16 14:46 | Occupational Ther Daily Note ---
OT Current Status-Daily Note Subjective Pt seated in recliner, family member present. Pt agreeable to OT tx. Mental Status/Objective Patient Orientation: Person, Normal For Age ADL-Treatment Therapy Code Descriptions/Definitions Functional [place] Measure: 0=Not Assessed/NA 4=Minimal Assistance 1=Total Assistance 5=Supervision or Setup 2=Maximal Assistance 6=Modified Rush 3=Moderate Assistance 7=Complete IndependenceSCALE: Activities may be completed with or without assistive devices. 2-Gneiwzeajy-qyomqgb completes the activity by him/herself with no assistance from a helper. 5-Set-up or Clean-up Assistance-helper sets up or cleans up; patient completes activity. [place] assists only prior to or following the activity. 4-Supervision or Touching Assistance-helper provides verbal cues and/or touching/steadying and/or contact guard assistance as patient completes activity. Assistance may be provided throughout the activity or intermittently. 3-Partial/Moderate Assistance-helper does LESS THAN HALF the effort. [place] lifts, holds or supports trunk or limbs, but provides less than half the effort. 2-Substantial/Maximal Assistance-helper does MORE THAN HALF the effort. [place] lifts or holds trunk or limbs and provides more than half the effort. 5-Ahftqzrrw-xjysqd does ALL the effort. Patient does none of the effort to complete the activity. Or, the assistance of 2 or more helpers is required for the patient to complete the activity. If activity was not attempted, code reason: 7-Patient Refused. 9-Not Applicable-not attempted and the patient did not perform the activity before the current illness, exacerbation or injury. 10-Not Attempted due to Environmental Limitations-(lack of equipment, weather restraints, etc.). 88-Not Attempted due to Medical Conditions or Safety Concerns. Oral Hygiene (QC): 5 (set up at tray table.) Other Treatment Pt seated at recliner. OT gathered ADL supplies and set up on tray table for pt. Pt able to brush her teeth with set up/clean up assistance. OT then provided pt with warm wash cloth, pt able to wash her face, with min A from OT to get lunch stains from around the edges of her mouth, and from her chest. Post OT tx, pt seated in recliner, call light in reach and all needs met. Education OT Patient Education: Correct positioning, Energy conservation, Modified ADL techniques, Progress toward Goal/Update tx plan, Purpose of tx/functional activities Teaching Recipient: Patient Teaching Methods: Discussion Response to Teaching: Verbalize Understanding OT Warehouse Distribution Associate Goals [facility] Goals Time Frame: Feb 19, 2020 Eating (QC): 6 Oral Hygiene (QC): 5 Toileting Hygiene (QC): 5 Shower/Bathe Self (QC): 5 Upper Body Dressing (QC): 5 Lower Body Dressing (QC): 5 On/Off Footwear (QC): 5 Additional Goals: 1-Demonstrate ADL Tasks, 2-Verbalize Understanding, 3- ImproveStrength/[place] 1=Demonstrate adherence to instructed precautions during ADL tasks. 2=Patient will verbalize/demonstrate understanding of assistive devices/modifications for ADL. 3=Patient will improve strength/tolerance for activity to enable patient to perform ADL's. OT Education/Plan Problem List/Assessment Assessment: Decreased Activ Tolerance, Decreased UE Strength, Impaired I ADL's, Impaired Self-Care Skills Pt would benefit from skilled OT to increase her independence in basic self care to allow her to safely return home Discharge Recommendations Plan/Recommendations: Continue POC Treatment Plan/Plan of Care Patient would benefit from OT for education, treatment and training to promote independence in ADL's, mobility, safety and/or upper extremity function for ADL's. Plan of Care: ADL Retraining, Functional Mobility, UE Funct Exercise/Act, UE Neuromus Re-Ed/Coord Treatment Duration: Feb 19, 2020 Frequency: 5 times per week Estimated Hrs Per Day: .25 hour per day Agreement: Yes Rehab Potential: Fair Time/GCodes Start Time: 14:25 Stop Time: 14:35 Total Time Billed (hr/min): 10 Billed Treatment Time 1, ADL SURAJ MATIAS OT Feb 16, 2020 14:46
--- NOTE | 2020-02-16 15:12 | NUR ---
IRF Evaluation Evaluation completed at the request of SW. Determination: Accepted Please note the ARU is capped, at this time. CM/SS notified. Will continue to follow as it relates to bed availability and admission. Thank you for this referral. Addendum: 02/16/20 at 1515 by SEPTEMBER Layton SINGH Additionally, patient has a primary insurance provider of [facility]; therefore, prior authorization would need to be obtained prior to admission.
[2020-02-16 15:48] VITALS: BP 199/86
[2020-02-16] MEDS: CATHETER FLUSH 10 ML SYR IV SCH ×2 (16:13→22:00)
[2020-02-16 20:00] VITALS: BP 185/77
--- NOTE | 2020-02-16 20:02 | Cardiology Progress Note ---
Cardiology SOAP Progress Note Subjective: No cardiac complaints Objective: I&O/Vital Signs 02/16/20 02/16/20 02/16/20 02/16/20 08:00 08:00 10:35 12:00 Temp 36.0 37.0 Pulse 88 103 Resp 18 16 B/P (MAP) 160/79 (106) 162/80 (107) Pulse Ox 93 92 95 O2 Delivery Room Air Room Air Room Air Room Air 02/16/20 02/16/20 02/16/20 02/16/20 12:30 15:13 15:48 18:15 Temp 36.5 Pulse 96 104 Resp 20 B/P (MAP) 199/86 (123) Pulse Ox 94 94 93 O2 Delivery Room Air Room Air Room Air 02/16/20 00:00 Intake Total 615 ml Output Total 1200 ml Balance -585 ml Constitutional: appears stated age; No apparent distress; well-developed, well- nourished Respiratory: chest is bilaterally symmetric, lungs clear to auscultation Cardiovascular: regular rate-rhythm, S1 and S2; No diastolic murmur, No systolic murmur Gastrointestional: soft, audible bowel sounds; No spleenomegaly; other (recent surgery.) Extremities: normal range of motion, non-tender, normal inspection; No clubbing, No cyanosis; no lower extremity edema bilateral; No significant edema Neurologic/Psychiatric: no motor/sensory deficits, alert, normal mood/affect, oriented x 3, power is 5/5 both on sides Skin: normal color, warm/dry; No rash, No ulcerations Results/Procedures: Labs Microbiology 02/11/20 Gram Stain - Final, Complete 02/11/20 Sputum Culture - Final, Complete Usual upper respiratory duncan 02/10/20 Urine Culture - Final, Complete NO GROWTH 02/10/20 Blood Culture - Final, Complete No growth A/P: Assessment/Dx: History of colon cancer, Colon cancer surgery, Abdominal bleeding, resolved. Sinus tachycardia, Hypertension, Diabetes, Second degree heart block Plan: History of colon cancer, status post cancer surgery. Defer to the primary team. Abdominal bleeding, resolved. Hemoglobin 8.6. Patient is recovering well. Sinus tachycardia, heart rate now much better. Likely due to post-abdominal surgery and anemia. No medication is required. Hypertension, agree with direct vasodilators including hydralazine. Diabetes, deferred to the primary team. Second degree heart block. I have reviewed all the telemetry strips. Patient has had blocked PACs and second-degree heart block. However it is unclear whether it is Mobitz type I or Mobitz type II since the QRS is narrow and the [place] is not prolonged. However this was immediately after IV labetalol was given. Significant resolution since no further IV labetalol has been given. We will avoid beta blockers. Patient may require an event monitor on discharge. Continue telemetry. I will request an echocardiogram. Control blood pressure with other agents including direct vasodilators and avoid calcium channel blockers and beta blockers. Will require event monitor on discharge. Thank you for your consultation. Please call me if you have any questions. Shankar Christie MD, FACP, FACC, FSCAI, RS, CCDS Interventional Cardiology Cardiac Electrophysiology Vascular Medicine and Endovascular Interventions Phillip CHRISTIE MD Feb 16, 2020 20:02
== END 2020-02-17 13:15 | disposition home or self-care (01) | DRG 329 ==
LOC: 4TH 09:45 → SURG 09:46 → 4TH 13:30 → ICU 20:12 → 4TH 02-15 15:08
PROVIDERS: ADMIT Surgery; ATTEND Surgery
PROC: 0DTJ0ZZ Resection of Appendix, Open Approach (ICD-10-PCS; 2020-02-10)
PROC: 04L Lower Arteries, Occlusion (ICD-10-PCS; 2020-02-10)
PROC: 0BH17EZ Insertion of Endotracheal Airway into Trachea, Via Natural or Artificial Opening (ICD-10-PCS; 2020-02-10)
PROC: 5A1935Z Respiratory Ventilation, Less than 24 Consecutive Hours (ICD-10-PCS; 2020-02-10)
PROC: 0DTF0ZZ Resection of Right Large Intestine, Open Approach (ICD-10-PCS; principal; 2020-02-10 11:28)
DX: C18.2 Malignant neoplasm of ascending colon (principal); K66.1 Hemoperitoneum; T81.32XA Disruption of internal operation (surgical) wound, not elsewhere classified, initial encounter; D62 Acute posthemorrhagic anemia; K59.39 Other megacolon; K38.8 Other specified diseases of appendix; I95.81 Postprocedural hypotension; R68.0 Hypothermia, not associated with low environmental temperature; R00.0 Tachycardia, unspecified; R00.1 Bradycardia, unspecified; I44.1 Atrioventricular block, second degree; I10 Essential (primary) hypertension; E11.9 Type 2 diabetes mellitus without complications; Z79.84 Long term (current) use of oral hypoglycemic drugs; Z87.898 Personal history of other specified conditions
CPT/HCPCS: 36415; 71045; 80048; 82805; 82962; 83605; 83735; 83880; 84100; 84132; 84145; 84484; 85007; 85014; 85018; 85025; 85027; 85384; 85610; 86850; 86900; 86901; 86920; 87040; 87070; 87088; 87205; 88305; 93005; 93306; 94002; 94003; 94640; 94664; 94760; 94799

== ENCOUNTER → 2020-03-10 | Outpatient (CLI) | payer OTHER, MEDICARE ==
[~2020-03-10] MED LIST changes: +BARIUM SUSPENSION 2.1% (VANILLA SILQ) 450 ML PO ONE; +CATHETER FLUSH 10 ML SYR IV PRN; +HOLD METFORMIN - RECEIVED CONTRAST 20 ML VIAL IV SCH; +IOHEXOL 350 MG/ML 100 ML (OMNIPAQUE 350) VIAL IV ONE; +NS 100 ML (IVPB) BAG IV ONE
--- NOTE | 2020-03-10 12:01 | Diagnostic Imaging Report ---
PROCEDURE: CT chest, abdomen, and pelvis with contrast. TECHNIQUE: Multiple contiguous axial images were obtained through the chest, abdomen, and pelvis after the administration of intravenous contrast. Auto Exposure Controls were utilized during the CT exam to meet ALARA standards for radiation dose reduction. INDICATION: Malignant neoplasm of the descending colon. COMPARISON: Correlation is made with prior CT from 11/29/2019. FINDINGS: CT chest: No axillary lymphadenopathy is detected. No definite mediastinal or hilar lymphadenopathy is detected. No pericardial or pleural fluid is identified. No pulmonary infiltrates, nodules or masses are detected. IMPRESSION: Unremarkable CT chest, without evidence of thoracic lymphadenopathy or pulmonary metastatic disease. CT abdomen and pelvis: No discrete liver mass is detected. Gallbladder is unremarkable. No biliary ductal dilatation is seen. The pancreas and spleen are unremarkable. No adrenal mass is detected. The kidneys are unremarkable. Aorta is non-aneurysmal. No central, retroperitoneal or mesenteric lymphadenopathy is detected. There does appear to be some wall thickening involving the distal stomach and proximal duodenum. Remainder of bowel loops are normal caliber. There is no obstruction. No pelvic lymphadenopathy is identified. There is no free fluid or fluid collection identified. The bladder is decompressed. IMPRESSION: 1. No evidence of abdominal or pelvic lymphadenopathy or mass. 2. Abnormal thickening involving the stomach and proximal duodenum, perhaps owing to gastritis/enteritis or perhaps peptic ulcer disease. Remainder of the study is unremarkable. Dictated by: Dictated on workstation # [id number]
== END ==
LOC: RAD 09:36
PROVIDERS: ATTEND Internal Medicine Hematology & Oncology
DX: C18.6 Malignant neoplasm of descending colon (principal); C18.2 Malignant neoplasm of ascending colon
CPT/HCPCS: 71260; 74177

== ENCOUNTER 2020-03-14 12:40 | Outpatient (RCR) | payer MEDICARE, OTHER ==
[2020-03-08 11:03] LABS: BASOPHILS % (AUTO) 1 % (0-10); EOSINOPHILS # (AUTO) 0.1 10^3/uL (0.0-0.3); EOSINOPHILS % (AUTO) 2 % (0-10); HEMATOCRIT 35 % (35-52); HEMOGLOBIN 11.5 G/DL (11.5-16.0); LYMPHOCYTES # (AUTO) 0.6 X 10^3 (1.0-4.0); LYMPHOCYTES % (AUTO) 15 % (12-44); MEAN CORPUSCULAR HEMOGLOBIN 27 PG (25-34); MEAN CORPUSCULAR HGB CONC 33 G/DL (32-36); MEAN CORPUSCULAR VOLUME 84 FL (80-99); MEAN PLATELET VOLUME 11.1 FL (7.4-10.4); MONOCYTES # (AUTO) 0.2 X 10^3 (0.0-1.0); MONOCYTES % (AUTO) 6 % (0-12); NEUTROPHILS # (AUTO) 2.8 X 10^3 (1.8-7.8); NEUTROPHILS % (AUTO) 77 % (42-75); PLATELET COUNT 188 10^3/uL (130-400); WHITE BLOOD COUNT 3.6 10^3/uL (4.3-11.0)
[2020-03-08 11:26] LABS: ALANINE AMINOTRANSFERASE 8 U/L (0-55); ALBUMIN 4.1 GM/DL (3.2-4.5); ALKALINE PHOSPHATASE 85 U/L (40-136); BILIRUBIN,TOTAL 0.5 MG/DL (0.1-1.0); BUN/CREATININE RATIO 12; CALCIUM 9.2 MG/DL (8.5-10.1); CARBON DIOXIDE 27 MMOL/L (21-32); CHLORIDE 100 MMOL/L (98-107); CREATININE SERUM 0.68 MG/DL (0.60-1.30); GFR ESTIMATED > 60; GLUCOSE 196 MG/DL (70-105); POTASSIUM 3.3 MMOL/L (3.6-5.0); SODIUM 138 MMOL/L (135-145); TOTAL PROTEIN 7.2 GM/DL (6.4-8.2)
[~2020-03-14 12:40] MED LIST changes: -BARIUM SUSPENSION 2.1% (VANILLA SILQ) 450 ML PO ONE; -CATHETER FLUSH 10 ML SYR IV PRN; -HOLD METFORMIN - RECEIVED CONTRAST 20 ML VIAL IV SCH; -IOHEXOL 350 MG/ML 100 ML (OMNIPAQUE 350) VIAL IV ONE; -NS 100 ML (IVPB) BAG IV ONE
== END 2020-06-06 | disposition home or self-care (01) ==
LOC: ONC 12:40
PROVIDERS: ATTEND Internal Medicine Hematology & Oncology
DX: C18.2 Malignant neoplasm of ascending colon (principal); E11.9 Type 2 diabetes mellitus without complications; D50.0 Iron deficiency anemia secondary to blood loss (chronic); D63.0 Anemia in neoplastic disease; I10 Essential (primary) hypertension; Z90.710 Acquired absence of both cervix and uterus
CPT/HCPCS: 80053; 82378; 85025; G0463; 99213; 99214

== ENCOUNTER → 2020-09-01 | Outpatient (CLI) | payer OTHER, MEDICARE ==
[2020-09-01 13:45] LABS: BASOPHILS % (AUTO) 1 % (0-10); EOSINOPHILS # (AUTO) 0.1 10^3/uL (0.0-0.3); EOSINOPHILS % (AUTO) 1 % (0-10); HEMATOCRIT 36 % (35-52); HEMOGLOBIN 11.2 g/dL (11.5-16.0); LYMPHOCYTES # (AUTO) 0.8 10^3/uL (1.0-4.0); LYMPHOCYTES % (AUTO) 21 % (12-44); MEAN CORPUSCULAR HEMOGLOBIN 25 pg (25-34); MEAN CORPUSCULAR HGB CONC 31 g/dL (32-36); MEAN CORPUSCULAR VOLUME 80 fL (80-99); MEAN PLATELET VOLUME 10.9 fL (9.0-12.2); MONOCYTES # (AUTO) 0.3 10^3/uL (0.0-1.0); MONOCYTES % (AUTO) 7 % (0-12); NEUTROPHILS # (AUTO) 2.9 10^3/uL (1.8-7.8); NEUTROPHILS % (AUTO) 71 % (42-75); PLATELET COUNT 183 10^3/uL (130-400); WHITE BLOOD COUNT 4.1 10^3/uL (4.3-11.0)
[2020-09-01 14:06] LABS: ALANINE AMINOTRANSFERASE 9 U/L (0-55); ALBUMIN 4.1 GM/DL (3.2-4.5); ALKALINE PHOSPHATASE 82 U/L (40-136); BILIRUBIN,TOTAL 0.3 MG/DL (0.1-1.0); BUN/CREATININE RATIO 20; CALCIUM 8.9 MG/DL (8.5-10.1); CARBON DIOXIDE 26 MMOL/L (21-32); CHLORIDE 106 MMOL/L (98-107); CREATININE SERUM 0.75 MG/DL (0.60-1.30); GFR ESTIMATED > 60; GLUCOSE 133 MG/DL (70-105); POTASSIUM 4.3 MMOL/L (3.6-5.0); SODIUM 142 MMOL/L (135-145)
== END ==
LOC: EDSTATUS 06-07 10:51 → ONC 13:33
PROVIDERS: ATTEND Internal Medicine Hematology & Oncology
DX: C18.7 Malignant neoplasm of sigmoid colon (principal); D50.0 Iron deficiency anemia secondary to blood loss (chronic); E11.9 Type 2 diabetes mellitus without complications; I10 Essential (primary) hypertension
CPT/HCPCS: 80053; 82378; 82728; 83540; 85025; G0463; 99213

== ENCOUNTER 2020-09-26 05:36 | Outpatient (RCR) | payer MEDICARE, OTHER ==
[~2020-09-26] VITALS: Ht 167.7 cm; Wt 51.0 kg
== END 2020-09-27 16:32 | disposition home or self-care (01) ==
LOC: PREOP 05:36
PROVIDERS: ATTEND Surgery
DX: Z01.818 Encounter for other preprocedural examination (principal)

== ENCOUNTER 2020-10-03 09:24 | Day surgery (SDC) | payer MEDICARE, OTHER ==
[2020-10-03] VITALS (7 sets, daily range): BP systolic 121–181; BP diastolic 55–95
[~2020-10-03] VITALS: Ht 152.1 cm; Wt 51.0 kg
[2020-10-03] MEDS ORDERED: LACTATED RINGERS 1,000 ML IV ONE (09:29)
[2020-10-03] MEDS ORDERED: LACTATED RINGERS 1,000 ML IV STA (09:46)
[2020-10-03] MEDS ORDERED: HURRICAINE EXT TUBE (BENZOCAINE) XX PRN (10:00)
--- NOTE | 2020-10-03 10:03 | Progress Note-Pre Operative ---
Pre-Operative Progress Note H&P Reviewed The H&P was reviewed, patient examined and no changes noted. Time Seen by Provider: 10: Date H&P Reviewed: Oct 03, 2020 Time H&P Reviewed: 10: Pre-Operative Diagnosis: Hx of colon CA, Gastritis ALEJANDRO VELAZQUEZ DO Oct 03, 2020 10:03
[2020-10-03] MEDS ORDERED: PROPOFOL INJECTION 50 ML IV ONE (10:41)
[2020-10-03] MEDS ORDERED: MIDAZOLAM 2 MG/2 ML (VERSED) VIAL ONE (10:42)
--- NOTE | 2020-10-03 12:02 | Progress Note-Post Operative ---
Post-Operative Progess Note Surgeon (s)/Fur Storage Clerk (s) Surgeon ALEJANDRO VELAZQUEZ DO Fur Storage Clerk: JYOTHI Caceres Pre-Operative Diagnosis Hx of colon CA, Gastritis Post-Operative Diagnosis Gastritis Hiatal hernia Diverticula Int hemorrhoids Procedure & Operative Findings Date of Procedure 10/03/20 Procedure Performed/Findings EGD with Bx Colonoscopy Anesthesia Type IV Sedation by LAB SYSTEMS ANALYST Estimated Blood Loss Estimated blood loss (mL): scant Specimens/Packing Specimens Removed antral body of stomach bx GE jxn ALEJANDRO VELAZQUEZ DO Oct 03, 2020 12:02
--- NOTE | 2020-10-03 12:03 | Endoscopy Discharge Instruct ---
Endo Procedure/Findings Findings 1.: Gastritis 2.: Hiatal Hernia 3.: Diverticulosis 4.: Internal Hemorrhoids Discharge Instructions - Activity: You might feel a little sleepy until tomorrow. This is due to the medicine you received to relax you. Until tomorrow, you should: NOT drive a car, operate machinery or power tools. NOT drink any alcoholic beverages. NOT make any important decisions or sign importortant papers. Do not return to work until tomorrow, unless otherwise instructed. Resume previous activities tomorrow. Diet: Start by taking liquids. If you tolerate liquids, advance to solid food. 1.: Colonoscopy in 1 year 2.: EGD in 3 years Notify Physician - If you experience excessive bleeding, unusual abdominal pain, fever, or chest pain, contact your doctor immediately. ALEJANDRO VELAZQUEZ DO Oct 03, 2020 12:03
--- NOTE | 2020-10-03 12:54 | Anesthesia-General Post-Op ---
MAC Patient Condition Mental Status/LOC: Same as Preop Cardiovascular: Satisfactory Nausea/Vomiting: Absent Respiratory: Satisfactory Pain: Controlled Complications: Absent Post Op Complications Complications None Follow Up Care/Instructions Patient Instructions None needed. Anesthesiology Discharge Order Discharge Order Patient is doing well, no complaints, stable vital signs, no apparent adverse anesthesia problems. No complications reported per nursing. PERLA WADDELL CRNA Oct 03, 2020 12:54
--- NOTE | 2020-10-03 22:08 | OPERATIVE REPORT ---
DATE OF SERVICE: 10/03/2020 PREOPERATIVE DIAGNOSES: History of colon cancer and gastritis. POSTOPERATIVE DIAGNOSES: Gastritis, hiatal hernia, diverticula, internal hemorrhoids. PROCEDURES: 1. EGD with biopsy. 2. Colonoscopy. SURGEON: Tanvir Cuevas, SITE LEAD: Anand Fried, MS3. ANESTHESIA: IV sedation by the SOILS ANALYST. SPECIMEN: Biopsy from the antrum, biopsy from body of stomach, biopsy from the GE junction. BLOOD LOSS: Scant. FLUIDS: Per anesthesia. POSTOPERATIVE CONDITION: Stable. INDICATION FOR PROCEDURE: The patient is a 64-year-old female, who had recent colon cancer, has had resection and has gastritis, needed EGD and a colonoscopy. FINDINGS: The patient had some gastritis and a hiatal hernia. She also had some diverticula and internal hemorrhoids. No other obvious pathology. PROCEDURE NOTE: After informed consent was obtained, the patient was brought to the endoscopy suite, placed in bed in left lateral decubitus position. She was administered IV sedation by the SOILS ANALYST who then monitored her vitals the entire time, heart rate, blood pressure and pulse ox, placed the scope down. Started with the EGD, placed the scope down the mouth through the esophagus into the stomach, noted some mild gastritis in the antrum, pushed through into the duodenum. Duodenum looked fine. Pulled back and did a biopsy of the antrum. Retroflexed the scope, saw hiatal hernia, possibly sliding hiatal hernia, took a picture of this and then did a biopsy of the length of the body of stomach, pulled the scope into the GE junction, did a biopsy here and then suctioned all the air out of stomach, pulled the scope up the esophagus and out the mouth. Switched camera, switched gloves, went down below, started the colonoscopy. Pushed all the way into about 120 cm, able to get to the portion of colon with the anastomosis. The small intestine looked good and then from here, slowly withdrew the scope insufflating the circumferential reinoso. I believe was the transverse colon, possibly upper portion of the ascending colon and then down slowly withdrawn down to the splenic flexure and then into the descending colon, saw some diverticula throughout here and then continued down into the sigmoid and finally into the rectum, retroflexed in the rectal vault and saw some internal hemorrhoids, took a picture and then removed the scope. The patient tolerated the procedure and she was recovered in endoscopy suite. Job ID: [id number] DocumentID: [id number] Dictated Date: 10/03/2020 15:34:25 Change Management Expert Date: 10/03/2020 22:07:39 Dictated By: TANVIR CUEVAS DO
== END 2020-10-03 12:30 | disposition home or self-care (01) ==
LOC: ENDO 09:24
PROVIDERS: ATTEND Surgery
DX: K29.50 Unspecified chronic gastritis without bleeding (principal); K20.90 Esophagitis, unspecified without bleeding; K57.30 Diverticulosis of large intestine without perforation or abscess without bleeding; K64.8 Other hemorrhoids; I10 Essential (primary) hypertension; E11.9 Type 2 diabetes mellitus without complications; D50.9 Iron deficiency anemia, unspecified; Z79.899 Other long term (current) drug therapy; Z79.84 Long term (current) use of oral hypoglycemic drugs; Z85.038 Personal history of other malignant neoplasm of large intestine

== ENCOUNTER 2020-11-24 13:59 | Outpatient (RCR) | payer OTHER ==
[2020-11-24 14:10] LABS: BASOPHILS % (AUTO) 1 % (0-10); EOSINOPHILS % (AUTO) 1 % (0-10); HEMATOCRIT 37 % (35-52); HEMOGLOBIN 11.7 g/dL (11.5-16.0); LYMPHOCYTES # (AUTO) 0.9 10^3/uL (1.0-4.0); LYMPHOCYTES % (AUTO) 24 % (12-44); MEAN CORPUSCULAR HEMOGLOBIN 26 pg (25-34); MEAN CORPUSCULAR HGB CONC 31 g/dL (32-36); MEAN CORPUSCULAR VOLUME 82 fL (80-99); MEAN PLATELET VOLUME 11.2 fL (9.0-12.2); MONOCYTES # (AUTO) 0.3 10^3/uL (0.0-1.0); MONOCYTES % (AUTO) 7 % (0-12); NEUTROPHILS # (AUTO) 2.5 10^3/uL (1.8-7.8); NEUTROPHILS % (AUTO) 67 % (42-75); PLATELET COUNT 164 10^3/uL (130-400); WHITE BLOOD COUNT 3.8 10^3/uL (4.3-11.0)
[2020-11-24 14:31] LABS: ALANINE AMINOTRANSFERASE 7 U/L (0-55); ALKALINE PHOSPHATASE 88 U/L (40-136); BILIRUBIN,TOTAL 0.3 MG/DL (0.1-1.0); BUN/CREATININE RATIO 16; CALCIUM 9.2 MG/DL (8.5-10.1); CARBON DIOXIDE 31 MMOL/L (21-32); CHLORIDE 104 MMOL/L (98-107); CREATININE SERUM 0.73 MG/DL (0.60-1.30); GFR ESTIMATED > 60; GLUCOSE 145 MG/DL (70-105); POTASSIUM 3.9 MMOL/L (3.6-5.0); SODIUM 139 MMOL/L (135-145); TOTAL PROTEIN 6.7 GM/DL (6.4-8.2)
== END 2021-02-22 | disposition home or self-care (01) ==
LOC: ONC 13:59
PROVIDERS: ATTEND Internal Medicine Hematology & Oncology
DX: C18.7 Malignant neoplasm of sigmoid colon (principal); E11.9 Type 2 diabetes mellitus without complications; D50.0 Iron deficiency anemia secondary to blood loss (chronic); K44.9 Diaphragmatic hernia without obstruction or gangrene; I10 Essential (primary) hypertension; Z79.84 Long term (current) use of oral hypoglycemic drugs; Z79.899 Other long term (current) drug therapy
CPT/HCPCS: 80053; 82378; 82728; 83540; 83550; 85025; G0463; 99213

== ENCOUNTER 2021-05-04 13:36 | Outpatient (RCR) | payer OTHER ==
[~2021-05-04 13:36] MED LIST changes: -LISI2.5T PO; +LISI2.5T13 PO
[2021-05-04 13:51] LABS: BASOPHILS % (AUTO) 1 % (0-10); EOSINOPHILS # (AUTO) 0.1 10^3/uL (0.0-0.3); EOSINOPHILS % (AUTO) 1 % (0-10); HEMATOCRIT 40 % (35-52); HEMOGLOBIN 12.9 g/dL (11.5-16.0); LYMPHOCYTES # (AUTO) 1.2 10^3/uL (1.0-4.0); LYMPHOCYTES % (AUTO) 24 % (12-44); MEAN CORPUSCULAR HEMOGLOBIN 27 pg (25-34); MEAN CORPUSCULAR HGB CONC 32 g/dL (32-36); MEAN CORPUSCULAR VOLUME 84 fL (80-99); MEAN PLATELET VOLUME 10.8 fL (9.0-12.2); MONOCYTES # (AUTO) 0.3 10^3/uL (0.0-1.0); MONOCYTES % (AUTO) 6 % (0-12); NEUTROPHILS # (AUTO) 3.3 10^3/uL (1.8-7.8); NEUTROPHILS % (AUTO) 68 % (42-75); PLATELET COUNT 186 10^3/uL (130-400); WHITE BLOOD COUNT 4.9 10^3/uL (4.3-11.0)
[2021-05-04 14:07] LABS: ALBUMIN 4.3 GM/DL (3.2-4.5); BILIRUBIN,TOTAL 0.4 MG/DL (0.1-1.0); CALCIUM 9.2 MG/DL (8.5-10.1); CREATININE SERUM 0.76 MG/DL (0.60-1.30); POTASSIUM 3.7 MMOL/L (3.6-5.0); TOTAL PROTEIN 7.3 GM/DL (6.4-8.2)
== END 2021-06-30 | disposition home or self-care (01) ==
LOC: ONC 13:36
PROVIDERS: ATTEND Internal Medicine Hematology & Oncology
DX: C18.7 Malignant neoplasm of sigmoid colon (principal); E11.9 Type 2 diabetes mellitus without complications; D50.0 Iron deficiency anemia secondary to blood loss (chronic); K44.9 Diaphragmatic hernia without obstruction or gangrene; I10 Essential (primary) hypertension
CPT/HCPCS: 80053; 82378; 85025; G0463; 99213

== ENCOUNTER 2021-10-19 06:18 | Outpatient (CLI) | payer OTHER ==
[~2021-10-19] VITALS: Ht 162.6 cm; Wt 125.0 kg
[2021-10-19] MEDS ORDERED: SIMV40TA25 PO (10:49)
== END 2021-10-19 11:12 | disposition home or self-care (01) ==
LOC: PREOP 06:18
PROVIDERS: ATTEND Surgery
DX: Z01.818 Encounter for other preprocedural examination (principal)

== ENCOUNTER 2021-10-30 09:51 | Day surgery (SDC) | payer OTHER ==
[2021-10-30] VITALS (7 sets, daily range): BP systolic 96–184; BP diastolic 54–92
[~2021-10-30] VITALS: Ht 167 cm; Wt 57.0 kg
[~2021-10-30 09:51] MED LIST changes: +SIMV40TA25 PO
[2021-10-30] MEDS ORDERED: LACTATED RINGERS 1,000 ML IV ONE (10:01)
[2021-10-30] MEDS ORDERED: LACTATED RINGERS 1,000 ML IV STA (10:03)
[2021-10-30] MEDS ORDERED: PROPOFOL INJECTION 50 ML IV ONE (10:09)
--- NOTE | 2021-10-30 10:10 | Progress Note-Pre Operative ---
Pre-Operative Progress Note H&P Reviewed The H&P was reviewed, patient examined and no changes noted. Time Seen by Provider: 10:08 Date H&P Reviewed: October 30, 2021 Time H&P Reviewed: 10:08 Pre-Operative Diagnosis: Hx of Chung's Esophagus, Hx of Rectal CA ALEJANDRO VELAZQUEZ DO October 30, 2021 10:10
[2021-10-30] MEDS ORDERED: HURRICAINE EXT TUBE (BENZOCAINE) XX PRN (10:15)
--- NOTE | 2021-10-30 10:58 | Progress Note-Post Operative ---
Post-Operative Progess Note Surgeon (s)/Dining Services Director (s) Surgeon ALEJANDRO VELAZQUEZ DO Dining Services Director: none Pre-Operative Diagnosis Hx of Chung's Esophagus, Hx of Rectal CA Post-Operative Diagnosis Gastritis Hiatal hernia Poor prep Procedure & Operative Findings Date of Procedure 10/30/21 Procedure Performed/Findings EGD with bx Colonoscopy PROCEDURE NOTE: After informed consent was obtained, the patient was brought to the endoscopy suite, placed in bed in left lateral decubitus position. She was administered IV sedation by the BULK GAS SPECIALIST who then monitored vitals the entire time, heart rate, blood pressure and pulse ox and the scope was inserted down the mouth through the esophagus into the stomach. On the way down, looked and really didn't see any esophagitis, pushed into the stomach and then took a picture of the antrum; mild Gastritis. Pushed into the duodenum; which looked good. Pulled back and did a biopsy of antrum, then retroflexed the scope, saw a small hiatal hernia and took a picture. Then pulled the scope into the GE junction, took a picture of the mild esophagitis (did not look like Chung's) and then did a biopsy of the GE junction. Pushed the scope back into the stomach, suctioned all the air out of the stomach. At this point pulled the scope up the esophagus and out the mouth. Switched camera, switched gloves, went down below, started the colonoscopy; there was a fair amount of retained fecal material. Pieces of corn and peas with some liquid. Pushed all the way into about 120 cm, to get to the anastomosis and took a picture. Slowly withdrew the scope, insufflating to look circumferentially at the reinoso starting from the anastomosis and down the transverse colon, splenic flexure, into the descending colon, down into the sigmoid and finally into the rectum, retroflexed in the rectal vault, saw what looked almost like a stricture no real hemorrhoids and took a picture of this. The patient tolerated the procedure and she recovered in the endoscopy suite. Anesthesia Type IV sedation by BULK GAS SPECIALIST Estimated Blood Loss Estimated blood loss (mL): scant Specimens/Packing Specimens Removed antral bx GE jxn bx ALEJANDRO VELAZQUEZ DO October 30, 2021 10:58
--- NOTE | 2021-10-30 10:59 | Endoscopy Discharge Instruct ---
Endo Procedure/Findings Findings 1.: Gastritis 2.: Hiatal Hernia Discharge Instructions - Activity: You might feel a little sleepy until tomorrow. This is due to the medicine you received to relax you. Until tomorrow, you should: NOT drive a car, operate machinery or power tools. NOT drink any alcoholic beverages. NOT make any important decisions or sign importortant papers. Do not return to work until tomorrow, unless otherwise instructed. Resume previous activities tomorrow. Diet: Start by taking liquids. If you tolerate liquids, advance to solid food. 1.: EGD in 3 years 2.: Colonscopy in 3 years Notify Physician - If you experience excessive bleeding, unusual abdominal pain, fever, or chest pain, contact your doctor immediately. ALEJANDRO VELAZQUEZ DO October 30, 2021 10:59
--- NOTE | 2021-10-30 13:03 | Anesthesia-General Post-Op ---
MAC Patient Condition Mental Status/LOC: Same as Preop Cardiovascular: Satisfactory Nausea/Vomiting: Absent Respiratory: Satisfactory Pain: Controlled Complications: Absent Post Op Complications Complications None Follow Up Care/Instructions Patient Instructions None needed. Anesthesiology Discharge Order Discharge Order Patient is doing well, no complaints, stable vital signs, no apparent adverse anesthesia problems. No complications reported per nursing. JERALD SOLORZANO CRNA October 30, 2021 13:03
== END 2021-10-30 11:35 | disposition home or self-care (01) ==
LOC: ENDO 09:51
PROVIDERS: ATTEND Surgery
DX: K29.50 Unspecified chronic gastritis without bleeding (principal); K20.90 Esophagitis, unspecified without bleeding; K44.9 Diaphragmatic hernia without obstruction or gangrene; K22.70 Barrett's esophagus without dysplasia; Z85.048 Personal history of other malignant neoplasm of rectum, rectosigmoid junction, and anus; Z98.0 Intestinal bypass and anastomosis status; Z85.038 Personal history of other malignant neoplasm of large intestine

== ENCOUNTER → 2021-11-23 | Outpatient (CLI) | payer OTHER ==
[2021-11-23 14:13] LABS: BASOPHILS % (AUTO) 1 % (0-10); EOSINOPHILS # (AUTO) 0.1 10^3/uL (0.0-0.3); EOSINOPHILS % (AUTO) 1 % (0-10); HEMATOCRIT 40 % (35-52); HEMOGLOBIN 13.1 g/dL (11.5-16.0); LYMPHOCYTES # (AUTO) 1.1 10^3/uL (1.0-4.0); LYMPHOCYTES % (AUTO) 21 % (12-44); MEAN CORPUSCULAR HEMOGLOBIN 27 pg (25-34); MEAN CORPUSCULAR HGB CONC 33 g/dL (32-36); MEAN CORPUSCULAR VOLUME 84 fL (80-99); MEAN PLATELET VOLUME 11.3 fL (9.0-12.2); MONOCYTES # (AUTO) 0.3 10^3/uL (0.0-1.0); MONOCYTES % (AUTO) 6 % (0-12); NEUTROPHILS # (AUTO) 3.9 10^3/uL (1.8-7.8); NEUTROPHILS % (AUTO) 72 % (42-75); PLATELET COUNT 187 10^3/uL (130-400); WHITE BLOOD COUNT 5.4 10^3/uL (4.3-11.0)
[2021-11-23 14:28] LABS: ALBUMIN 4.3 GM/DL (3.2-4.5); POTASSIUM 4.1 MMOL/L (3.6-5.0)
[2021-11-23 14:30] LABS: CALCIUM 9.5 MG/DL (8.5-10.1)
[2021-11-23 14:31] LABS: TOTAL PROTEIN 7.1 GM/DL (6.4-8.2)
[2021-11-23 14:32] LABS: BILIRUBIN,TOTAL 0.6 MG/DL (0.1-1.0)
[2021-11-23 14:34] LABS: CREATININE SERUM 0.82 MG/DL (0.60-1.30)
== END ==
LOC: ONC 14:02
PROVIDERS: ATTEND Internal Medicine Hematology & Oncology
DX: C18.7 Malignant neoplasm of sigmoid colon (principal); D50.9 Iron deficiency anemia, unspecified; K44.9 Diaphragmatic hernia without obstruction or gangrene; E11.9 Type 2 diabetes mellitus without complications; I10 Essential (primary) hypertension
CPT/HCPCS: 36415; 80053; 85025

== ENCOUNTER → 2022-05-17 | Outpatient (CLI) | payer OTHER ==
[2022-05-17 09:53] LABS: BASOPHILS % (AUTO) 1 % (0-10); EOSINOPHILS # (AUTO) 0.2 10^3/uL (0.0-0.3); EOSINOPHILS % (AUTO) 3 % (0-10); HEMATOCRIT 39 % (35-52); LYMPHOCYTES % (AUTO) 20 % (12-44); MEAN CORPUSCULAR HEMOGLOBIN 27 pg (25-34); MEAN CORPUSCULAR HGB CONC 33 g/dL (32-36); MEAN CORPUSCULAR VOLUME 82 fL (80-99); MEAN PLATELET VOLUME 10.8 fL (9.0-12.2); MONOCYTES # (AUTO) 0.4 10^3/uL (0.0-1.0); MONOCYTES % (AUTO) 9 % (0-12); NEUTROPHILS # (AUTO) 3.5 10^3/uL (1.8-7.8); NEUTROPHILS % (AUTO) 67 % (42-75); PLATELET COUNT 186 10^3/uL (130-400); WHITE BLOOD COUNT 5.2 10^3/uL (4.3-11.0)
[2022-05-17 10:17] LABS: ALBUMIN 4.3 GM/DL (3.2-4.5); BILIRUBIN,TOTAL 0.5 MG/DL (0.1-1.0); CALCIUM 9.3 MG/DL (8.5-10.1); CREATININE SERUM 0.7 MG/DL (0.60-1.30); POTASSIUM 3.7 MMOL/L (3.6-5.0); TOTAL PROTEIN 7.2 GM/DL (6.4-8.2)
== END ==
LOC: ONC 09:40
PROVIDERS: ATTEND Internal Medicine Hematology & Oncology
DX: C18.7 Malignant neoplasm of sigmoid colon (principal); D50.9 Iron deficiency anemia, unspecified; E11.9 Type 2 diabetes mellitus without complications
CPT/HCPCS: 80053; 82378; 85025; G0463; 36415; 99213

== ENCOUNTER 2022-11-07 07:50 | Outpatient (CLI) | payer OTHER ==
[~2022-11-07] VITALS: Ht 167.6 cm; Wt 59.0 kg
== END 2022-11-08 14:01 | disposition home or self-care (01) ==
LOC: PREOP 07:50
PROVIDERS: ATTEND Surgery
DX: Z01.818 Encounter for other preprocedural examination (principal)

== ENCOUNTER 2022-11-19 10:22 | Day surgery (SDC) | payer OTHER ==
[~2022-11-19] VITALS: Ht 167.6 cm; Wt 59.0 kg
[2022-11-19] MEDS ORDERED: LACTATED RINGERS 1,000 ML IV STA (10:31)
--- NOTE | 2022-11-19 10:38 | Progress Note-Pre Operative ---
Pre-Operative Progress Note Date of Available H&P: November 06, 2022 Date H&P Reviewed: November 19, 2022 Time H&P Reviewed: 10:37 History & Physical: H&P Reviewed, Patient Examed, No changes noted Pre-Operative Diagnosis: Hx of rectal CA, poor prep ALEJANDRO VELAZQUEZ DO November 19, 2022 10:38
[2022-11-19 10:43] VITALS: BP 172/87
[2022-11-19] MEDS ORDERED: PROPOFOL INJECTION 50 ML IV ONE (11:13)
--- NOTE | 2022-11-19 11:34 | Progress Note-Post Operative ---
Post-Operative Progess Note Surgeon (s)/Black Top Spreader Machine Operator (s) Surgeon ALEJANDRO VELAZQUEZ DO Black Top Spreader Machine Operator: none Pre-Operative Diagnosis Hx of colon CA, poor prep Post-Operative Diagnosis Polyp hemorrhoids Procedure & Operative Findings Date of Procedure 11/19/22 Procedure Performed/Findings Colonoscopy with hot biopsy PROCEDURE NOTE: After informed consent was obtained, the patient was brought to the endoscopy suite, placed in bed in left lateral decubitus position. She was administered IV sedation by the SERVICES REP who then monitored her vitals the entire time, heart rate, blood pressure and pulse ox and the scope was inserted, pushed all the way to about 70 cm and pushed to the anastomosis. I took a picture of the anastomosis and then slowly withdrew the scope insufflating to look circumferentially at the reinoso starting from anastomosis, then down the transverse colon, splenic flexure, into the descending colon and down into the sigmoid. Found a small polyp here and removed it with hot biopsy. Finally into the rectal vault and retroflexed the scope. Took picture of the internal hemorrhoids. The patient tolerated the procedure. She was recovered in endoscopy suite. Recommended for repeat colonoscopy in 5 years. Anesthesia Type IV sedation by SERVICES REP Estimated Blood Loss Estimated blood loss (mL): scant Specimens/Packing Specimens Removed sigmoid polyp ALEJANDRO VELAZQUEZ DO November 19, 2022 11:34
--- NOTE | 2022-11-19 11:35 | Endoscopy Discharge Instruct ---
Endo Procedure/Findings Findings 1.: Polyp 2.: Internal Hemorrhoids Discharge Instructions - Activity: You might feel a little sleepy until tomorrow. This is due to the medicine you received to relax you. Until tomorrow, you should: NOT drive a car, operate machinery or power tools. NOT drink any alcoholic beverages. NOT make any important decisions or sign importortant papers. Do not return to work until tomorrow, unless otherwise instructed. Resume previous activities tomorrow. Diet: Start by taking liquids. If you tolerate liquids, advance to solid food. 1.: Colonscopy in 5 years Notify Physician - If you experience excessive bleeding, unusual abdominal pain, fever, or chest pain, contact your doctor immediately. Follow-Up: Other Follow up in my office in one week ALEJANDRO VELAZQUEZ DO November 19, 2022 11:35
[2022-11-19 11:38] VITALS: BP 117/56
[2022-11-19 11:43] VITALS: BP 130/65
[2022-11-19 11:45] VITALS: BP 130/65
[2022-11-19 12:05] VITALS: BP 130/65
--- NOTE | 2022-11-19 12:39 | Anesthesia-General Post-Op ---
MAC Patient Condition Mental Status/LOC: Same as Preop Cardiovascular: Satisfactory Nausea/Vomiting: Absent Respiratory: Satisfactory Pain: Controlled Complications: Absent Post Op Complications Complications None Follow Up Care/Instructions Patient Instructions None needed. Anesthesiology Discharge Order Discharge Order Patient is doing well, no complaints, stable vital signs, no apparent adverse anesthesia problems. No complications reported per nursing. PEPE TELLES CRNA November 19, 2022 12:39
== END 2022-11-19 12:10 | disposition home or self-care (01) ==
LOC: ENDO 10:22
PROVIDERS: ATTEND Surgery
DX: Z12.11 Encounter for screening for malignant neoplasm of colon (principal); D12.5 Benign neoplasm of sigmoid colon; E11.9 Type 2 diabetes mellitus without complications; K64.8 Other hemorrhoids; Z79.84 Long term (current) use of oral hypoglycemic drugs; Z85.038 Personal history of other malignant neoplasm of large intestine; Z87.19 Personal history of other diseases of the digestive system